=== PATIENT | male | born 1935 | race Caucasian/White ===

== ENCOUNTER 2023-07-24 11:09 | Inpatient (IN) | payer MEDICARE, SELFPAY ==
[2023-07-24] VITALS (29 sets, daily range): BP systolic 119–178; BP diastolic 63–91; PULSE 54–96; RESP 15–33; TEMP 36.2–36.8; O2SAT 91–100; BMI 30.8; BMI 30.4
--- NOTE | 2023-07-24 11:27 | DI.RAD.S_ITS ---
PROCEDURE: XR CHEST 1V INDICATIONS: chest pain TECHNIQUE: One view of the chest was acquired. COMPARISON: None. FINDINGS: Surgical changes and devices: None. Lungs and pleura: Question mild interstitial pulmonary edema. Minimal bibasilar atelectasis. No pleural effusions or pneumothorax. Mediastinum: Mediastinal contours appear normal. Heart size is normal. Bones and chest wall: No suspicious bony lesions. Overlying soft tissues appear unremarkable. IMPRESSION: Question subtle changes of congestive heart failure. Dictated by: Agustín Guzman M.D. on 07/24/2023 at 12:10 Approved by: Agustín Guzman M.D. on 07/24/2023 at 12:12
--- NOTE | 2023-07-24 11:27 | DI.CT.S_ITS ---
PROCEDURE: CT HEAD/BRAIN WO CON INDICATIONS: fall TECHNIQUE: Noncontrast 4.5 mm thick angled axial sections acquired from the foramen magnum to the vertex, with coronal and sagittal reformats. For radiation dose reduction, the following was used: automated exposure control, adjustment of mA and/or kV according to patient size. COMPARISON: None. FINDINGS: Image quality: Diagnostic. CSF spaces: Basal cisterns are patent. No extra-axial fluid collections. The ventricles are symmetric in size and shape. Brain: No intracranial bleeds or masses. There is cerebral volume loss for age, with resultant ventricular and sulcal prominence. There are periventricular and deep white matter chronic small vessel ischemic changes. There is intracranial internal carotid artery atherosclerosis. Skull and face: Calvarium and visualized facial bones appear intact, without suspicious lesions. Sinuses: Visualized sinuses and mastoids are clear. IMPRESSION: No acute intracranial pathology. Dictated by: Agustín Guzman M.D. on 07/24/2023 at 12:20 Approved by: Agustín Guzman M.D. on 07/24/2023 at 12:21
[2023-07-24 11:33] LABS: Add Manual Diff / Slide Review NO; Basophils Absolute Auto 100 /uL (0-100); Basophils Percent Auto 0.8 % (0-2); Eosinophils Absolute Auto 0 /uL (0-450); Hematocrit 46.2 % (41-53); Lymphocytes Absolute Auto 500 /uL (1100-4500); Lymphocytes Percent Auto 4.8 % (25-40); Mean Corpuscular HGB Conc 34.6 % (30-36); Mean Corpuscular Hemoglobin 32.9 PG (26-34); Monocytes Absolute Auto 1000 /uL (0-900); Monocytes Percent Auto 10.1 % (3-14); Neutrophils Absolute Auto 8300 /uL (1500-7000); Neutrophils Percent Auto 84.3 % (50-75); Platelet Count 177 X10^3/uL (150-400); Red Blood Cell Count 4.86 X10^6/uL (4.5-5.9); Red Cell Distribution Width 13.6 % (11.6-14.8); White Blood Cell Count 9.9 X10^3/uL (4.5-11.0)
[2023-07-24 11:39] LABS: Alanine Aminotransferase 13 IU/L (<50); Albumin Globulin Ratio 1.3 (1.0-2.8); Alkaline Phosphatase 56 U/L (38-126); Aspartate Aminotransferase 27 IU/L (17-59); Bilirubin Total 1.1 mg/dL (0.2-1.3); Blood Urea Nitrogen 17 mg/dL (9-20); Calcium 9.3 mg/dL (8.4-10.2); Carbon Dioxide 27 mmol/L (22-32); Chloride 102 mmol/L (98-107); Creatine Kinase 488 U/L (55-170); Estimated Glomerular Filt Rate > 60 mL/min (>60); Glucose 121 mg/dL (80-110); HEMOLYSIS < 15 (0-50); Lipase 108 U/L (23-300); Potassium 3.7 mmol/L (3.4-5.1); Sodium 136 mmol/L (137-145)
[2023-07-24 11:50] LABS: Troponin I 0.059 ng/mL (0.01-0.034)
--- NOTE | 2023-07-24 13:48 | ED.FALL ---
HPI - Fall General Chief Complaint: Fall Stated Complaint: Right Leg Weakness Time Seen by Provider: 07/24/23 11:27 Source: patient and EMS Mode of arrival: EMS History of Present Illness HPI Narrative: Patient is an 87-year-old male history of hypertension presenting today with right leg weakness. He is overall extremely poor historian. It appears that he has been falling more. Son at bedside states that he has been falling more over the last 6 months. However it is the patient has been falling more over the last 2 days. He has been crawling around on the floor Ms. Hands and knees are erythematous with some minor scabs. He was complaining of right leg weakness but seems to be able to move it. He is got some chronic ongoing back pain but states that he has not in any pain now. He does not have any sharp shooting pain down his leg. He reports that his right leg went ?.He has no chest pain fever or palpitations. No abdominal pain nausea vomiting. He says that he was leaning to the right at times as well. He was sitting on the bed when he leaned over to the right and bumped his head today. Son reports that he has not at his mental baseline. He reports that he is very sharp individual he talks to him very regularly on the phone. He is normally able to do all of his daily living activities without any assistance. Related Data Allergies Allergy/AdvReac Type Severity Reaction Status Date / Time No Known Drug Allergies Allergy Verified 07/24/23 11:32 Patient History Social History Smoking Status: Never smoker Smoking Status: Never smoker Substance Use Type: does not use Exam Initial Vital Signs Initial Vital Signs: Vital Signs Temperature 98.2 F 07/24/23 11:09 Pulse Rate 69 07/24/23 11:09 Respiratory Rate 16 07/24/23 11:09 Blood Pressure 144/70 H 07/24/23 11:09 Pulse Oximetry 97 07/24/23 11:09 Oxygen Delivery Method Room Air 07/24/23 11:09 GENERAL: Alert pleasant confused 87-year-old male and in no acute distress. HEENT: Head atraumatic,EOMI, pupils reactive, face symmetric, moist mucous membranes CARDIOVASCULAR: Regular rate and rhythm without murmurs, rubs or gallops. RESPIRATORY: Breath sounds equal bilaterally, no wheezes rales or rhonchi. ABDOMEN: Soft, nontender. Normoactive bowel sounds all 4 quadrants. No guarding or rebound. EXTREMITIES: Normal range of motion, no clubbing or edema. Neurovascularly intact NEUROLOGICAL: Alert and oriented x4.Normal gait and speech. Cranial nerves II through XII grossly intact. Good iwjojy-eu-vral, good ldjo-ks-psdn, strength equal bilaterally, no dysarthria or aphasia, sensation in tact to soft touch bilaterally, no visual changes, no facial droop SKIN: Warm, dry, no laceration, no petechiae, no rashes or lesions. Procedures Lumbar Puncture Patient Position: upright Skin Prep: Povidone-Iodine 1% Local Anesthetic: lidocaine 1% Amount of anesthesia used (mL): 3 Spinal Needle Gauge: 20G Interspace Used: L4-L5 Fluid Initially Obtained: clear Complications: none Scores NIH Stroke Scale Level of Conciousness: Alert, keenly responsive Ask month/age: Answers both questions correctly. Open/close eyes, close hand: Performs both tasks correctly Best gaze horizontal: Normal Visual sandoval: No visual loss Facial palsy: Normal symetrical movement Left arm drift: No drift for full 10 sec Right arm drift: No drift for full 10 sec Left leg drift: No drift for full 5 sec Right leg drift: No drift for full 5 sec Limb ataxia: Absent Sensory on face/arms/legs: Normal, no sensory loss Best language: No aphasia, normal Dysarthria: Normal Extinction or inattention: No abnormality Total NIH Stroke scale score: 0 Course Orders Ordered: ED Orders 07/24/23 11:18 BNP [NT-proBNP (BNP-Adult 18+)] Stat Complete Blood Count AUTO DIFF Stat Comprehensive Metabolic Panel Stat ETOH [Ethanol (ETOH)] Stat Lipase Stat TSH [Thyroid Stimulating Hormone] Stat Troponin & CK Cardiac Panel Stat 07/24/23 11:27 CT head/brain wo con Stat XR chest 1V Stat 07/24/23 11:28 EKG-12 Lead Stat 07/24/23 12:42 EKG-12 Lead Stat 07/24/23 13:20 Trop I [Troponin I] Stat 07/24/23 14:11 MR stroke Stat 07/24/23 18:12 ABG [Arterial Blood Gas] Stat 07/24/23 18:13 Ammonia (NH3) Stat 07/24/23 18:19 Covid-19 + FLU A/B + RSV - PCR Stat 07/24/23 18:20 Urine Drug Screen, Rapid Stat Urine Microscopic Stat 07/24/23 19:28 Cell Count w Diff CSF Stat Glucose CSF Stat HOLD TUBE CSF Stat Total Protein CSF Stat 07/24/23 19:31 CSF culture Stat Discontinued Medications Sodium Chloride (Normal Saline 0.9%) 1,000 mls @ 1,000 mls/hr IV BOLUS ONE Stop: 07/24/23 19:12 Lorazepam (Lorazepam 2 Mg/Ml Inj) 0.5 mg IV NOW ONE Stop: 07/24/23 14:31 Last Admin: 07/24/23 14:27 Dose: 0.5 mg Documented By: ANALY Lorazepam (Lorazepam 2 Mg/Ml Inj) 0.5 mg IV NOW ONE Stop: 07/24/23 19:00 Vital Signs Vital signs: Vital Signs - 8 hr 07/24/23 12:01 07/24/23 12:02 07/24/23 12:02 Pulse Rate 65 67 Respiratory Rate 16 Blood Pressure 151/79 H Pulse Oximetry 97 96 Oxygen Delivery Method 07/24/23 12:30 07/24/23 12:31 07/24/23 12:31 Pulse Rate 61 62 Respiratory Rate 18 15 Blood Pressure 143/63 H Pulse Oximetry 95 94 Oxygen Delivery Method Room Air 07/24/23 13:00 07/24/23 13:00 07/24/23 13:30 Pulse Rate 63 67 Respiratory Rate 16 20 Blood Pressure 135/91 H Pulse Oximetry 97 91 Oxygen Delivery Method 07/24/23 13:31 07/24/23 13:31 07/24/23 14:00 Pulse Rate 68 76 Respiratory Rate Blood Pressure 157/67 H Pulse Oximetry 93 94 Oxygen Delivery Method 07/24/23 15:25 07/24/23 15:29 07/24/23 15:29 Pulse Rate 79 82 Respiratory Rate 16 Blood Pressure 135/87 Pulse Oximetry Oxygen Delivery Method 07/24/23 15:30 07/24/23 16:00 07/24/23 16:30 Pulse Rate 77 71 74 Respiratory Rate 18 17 31 H Blood Pressure Pulse Oximetry 97 95 Oxygen Delivery Method Room Air 07/24/23 17:00 07/24/23 17:06 07/24/23 17:06 Pulse Rate 78 75 Respiratory Rate 29 H Blood Pressure 119/65 Pulse Oximetry 96 95 Oxygen Delivery Method 07/24/23 18:41 07/24/23 18:44 07/24/23 18:44 Pulse Rate 57 L 70 Respiratory Rate 25 H Blood Pressure 173/79 H Pulse Oximetry 100 94 Oxygen Delivery Method 07/24/23 19:00 07/24/23 19:01 07/24/23 19:01 Pulse Rate 67 65 Respiratory Rate 23 24 Blood Pressure 159/69 H Pulse Oximetry 93 92 Oxygen Delivery Method Room Air 07/24/23 19:30 07/24/23 19:31 07/24/23 19:31 Pulse Rate 71 74 Respiratory Rate 33 H 29 H Blood Pressure 158/74 H Pulse Oximetry 94 94 Oxygen Delivery Method Room Air Room Air MDM - Fall Lab Data 07/24/23 11:18 07/24/23 11:18 Labs: Lab Results 07/24/23 07/24/23 07/24/23 Range/Units 11:18 13:20 18:19 WBC 9.9 (4.5-11.0) X10^3/uL RBC 4.86 (4.5-5.9) X10^6/uL Hgb 16.0 (13.5-17.5) g/dL Hct 46.2 (41-53) % MCV 95.0 (80-100) fL MCH 32.9 (26-34) PG MCHC 34.6 (30-36) % RDW 13.6 (11.6-14.8) % Plt Count 177 (150-400) X10^3/uL Neut % (Auto) 84.3 H (50-75) % Lymph % (Auto) 4.8 L (25-40) % [place] % (Auto) 10.1 (3-14) % Eos % (Auto) 0.0 L (2-4) % Baso % (Auto) 0.8 (0-2) % Neut # (Auto) 8300 H (1878-8804) /uL Lymph # (Auto) 500 L (9937-6197) /uL [place] # (Auto) 1000 H (0-900) /uL Eos # (Auto) 0 (0-450) /uL Baso # (Auto) 100 (0-100) /uL Sodium 136 L (137-145) mmol/L Potassium 3.7 (3.4-5.1) mmol/L Chloride 102 (98-107) mmol/L Carbon Dioxide 27 (22-32) mmol/L BUN 17 (9-20) mg/dL Creatinine 1.13 (0.66-1.25) mg/dL Estimated GFR > 60 (>60) mL/min BUN/Creatinine Ratio 15.0 (6-22) Glucose 121 H (80-110) mg/dL Calcium 9.3 (8.4-10.2) mg/dL Total Bilirubin 1.1 (0.2-1.3) mg/dL AST 27 (17-59) IU/L ALT 13 (<50) IU/L Alkaline Phosphatase 56 (38-126) U/L Total Creatine Kinase 488 H (55-170) U/L Troponin I 0.059 H 0.055 H (0.01-0.034) ng/mL NT-Pro-B Natriuret Pep 7070 H (<450) pg/mL Total Protein 7.0 (6.3-8.2) g/dL Albumin 4.0 (3.5-5.0) g/dL Globulin 3.0 (1.7-4.1) g/dL Albumin/Globulin Ratio 1.3 (1.0-2.8) Lipase 108 (23-300) U/L TSH 0.878 (0.47-4.68) uIU/mL Urine RBC (0-5/HPF) Urine WBC (0-5/HPF) Ur Squamous Epith Cells (0-5/HPF) Urine Bacteria (None) Urine Mucus (Negative) Vol Urine Centrifuged U Opiates 300ng/mL cut (Negative) Ur Oxycodone Screen (Negative) Urine Methadone Screen (Negative) Ur Barbiturates Screen (Negative) U Tricyclic Antidepress (Negative) Ur Phencyclidine Scrn (Negative) Ur Amphetamines Screen (Negative) U Methamphetamines Scrn (Negative) Ur MDMA Scrn (Ecstasy) (Negative) U Benzodiazepines Scrn (Negative) Urine Cocaine Screen (Negative) U Marijuana (THC) Screen (Negative) Urine pH (Normal) Urine Specific [place] (Normal) Ethyl Alcohol < 10 ( - 10) mg/dL Ur Creatinine (Normal) SARS-CoV-2 (PCR) Positive H (Negative) Influenza A (RT-PCR) Flu a negative (NEGATIVE) Influenza B (RT-PCR) Flu b negative (NEGATIVE) RSV (PCR) Negative (Negative) 07/24/23 Range/Units 18:20 WBC (4.5-11.0) X10^3/uL RBC (4.5-5.9) X10^6/uL Hgb (13.5-17.5) g/dL Hct (41-53) % MCV (80-100) fL MCH (26-34) PG MCHC (30-36) % RDW (11.6-14.8) % Plt Count (150-400) X10^3/uL Neut % (Auto) (50-75) % Lymph % (Auto) (25-40) % [place] % (Auto) (3-14) % Eos % (Auto) (2-4) % Baso % (Auto) (0-2) % Neut # (Auto) (1198-2861) /uL Lymph # (Auto) (3268-9519) /uL [place] # (Auto) (0-900) /uL Eos # (Auto) (0-450) /uL Baso # (Auto) (0-100) /uL Sodium (137-145) mmol/L Potassium (3.4-5.1) mmol/L Chloride (98-107) mmol/L Carbon Dioxide (22-32) mmol/L BUN (9-20) mg/dL Creatinine (0.66-1.25) mg/dL Estimated GFR (>60) mL/min BUN/Creatinine Ratio (6-22) Glucose (80-110) mg/dL Calcium (8.4-10.2) mg/dL Total Bilirubin (0.2-1.3) mg/dL AST (17-59) IU/L ALT (<50) IU/L Alkaline Phosphatase (38-126) U/L Total Creatine Kinase (55-170) U/L Troponin I (0.01-0.034) ng/mL NT-Pro-B Natriuret Pep (<450) pg/mL Total Protein (6.3-8.2) g/dL Albumin (3.5-5.0) g/dL Globulin (1.7-4.1) g/dL Albumin/Globulin Ratio (1.0-2.8) Lipase (23-300) U/L TSH (0.47-4.68) uIU/mL Urine RBC 1-5/hpf (0-5/HPF) Urine WBC 1-5/hpf (0-5/HPF) Ur Squamous Epith Cells 1-5 /hpf (0-5/HPF) Urine Bacteria None seen (None) Urine Mucus 1+ H (Negative) Vol Urine Centrifuged 10ml (spun) U Opiates 300ng/mL cut Negative (Negative) Ur Oxycodone Screen Negative (Negative) Urine Methadone Screen Negative (Negative) Ur Barbiturates Screen Negative (Negative) U Tricyclic Antidepress Negative (Negative) Ur Phencyclidine Scrn Negative (Negative) Ur Amphetamines Screen Negative (Negative) U Methamphetamines Scrn Negative (Negative) Ur MDMA Scrn (Ecstasy) Negative (Negative) U Benzodiazepines Scrn Negative (Negative) Urine Cocaine Screen Negative (Negative) U Marijuana (THC) Screen Negative (Negative) Urine pH Normal (Normal) Urine Specific [place] Normal (Normal) Ethyl Alcohol ( - 10) mg/dL Ur Creatinine Normal (Normal) SARS-CoV-2 (PCR) (Negative) Influenza A (RT-PCR) (NEGATIVE) Influenza B (RT-PCR) (NEGATIVE) RSV (PCR) (Negative) Urine Dip Bedside Urine Glucose Negative Bedside Urine Bilirubin - Negative Bedside Urine Ketone +/- 5 Urine Specific [place] 1.030 Bedside Urine Occult Blood ++ Bedside Urine pH 6.0 Bedside Urine Protein +/- 15 Bedside Urine Urobilinogen - Negative Bedside Urine Nitrite - Negative Bedside Urine Leukocytes - Negative Esterase Imaging Data CT scan - head: Radiologist's Impression: PROCEDURE: CT HEAD/BRAIN WO CON INDICATIONS: fall TECHNIQUE: Noncontrast 4.5 mm thick angled axial sections acquired from the foramen magnum to the vertex, with coronal and sagittal reformats. For radiation dose reduction, the following was used: automated exposure control, adjustment of mA and/or kV according to patient size. COMPARISON: None. FINDINGS: Image quality: Diagnostic. CSF spaces: Basal cisterns are patent. No extra-axial fluid collections. The ventricles are symmetric in size and shape. Brain: No intracranial bleeds or masses. There is cerebral volume loss for age, with resultant ventricular and sulcal prominence. There are periventricular and deep white matter chronic small vessel ischemic changes. There is intracranial internal carotid artery atherosclerosis. Skull and face: Calvarium and visualized facial bones appear intact, without suspicious lesions. Sinuses: Visualized sinuses and mastoids are clear. IMPRESSION: No acute intracranial pathology. Dictated by: Agustín Guzman M.D. on 07/24/2023 at 12:20 MR Brain: Radiologist's Impression: PROCEDURE: MR STROKE Pre- and post-contrast brain MRI, non-contrast brain MR angiogram, pre- and postcontrast neck MR angiogram INDICATIONS: right leg weakness TECHNIQUE: Brain: Noncontrast axial T1 spin echo, axial T2 fast spin echo, sagittal and axial FLAIR, coronal T2 fast spin echo, axial gradient echo, axial diffusion and ADC through the brain. After the administration of contrast, axial 3D VIBE of the cranial vasculature and brain. Brain MRA: Non-contrast 3-D time of flight MR angiogram, with multiple attxwbn-oydbymhri-aoffspxvvu (MIP) reformats performed. Neck MRA: Axial and sagittal TruFISP through the neck. Coronal dynamic MR angiogram during administration of contrast in the arterial and venous phases, with 3-dimenstional ueulkqy-odhjkzhrs-hvftrgoxar (MIP) reformats constructed from subtraction images. COMPARISON: [facility], CT, CT HEAD/BRAIN WO CON, 07/24/2023, 12:01. [facility], CR, XR CHEST 1V, 07/24/2023, 11:33. FINDINGS: Image quality: This examination is highly limited by involuntary motion artifact. BRAIN: CSF spaces: Ventricles are normal in size and shape. Basal cisterns are patent. No extra-axial fluid collections. Brain: No intracranial bleeds or mass effects. Rose-white matter interface is normal. Diffusion weighted images show no acute infarct. Brainstem appears normal. Normal intravascular flow voids are present. No abnormal intracranial enhancement. Note is made of age-appropriate brain parenchymal volume loss and chronic small vessel ischemic changes. Skull and face: Calvarial marrow signal is normal. Orbits appear normal. Sinuses: Sinuses and mastoids are clear. BRAIN MR ANGIOGRAM: Anterior circulation: Intracranial internal carotid arteries are normal in size and enhancement. The flow within the paired anterior cerebral arteries is normal and symmetric. The flow within the middle cerebral arteries is normal and symmetric. The anterior communicating artery is seen. No stenoses, occlusions, or aneurysms. Posterior circulation: The visualized portions of the vertebral arteries demonstrate normal caliber, and join to form a normal appearing basilar artery. The flow within the posterior cerebral arteries is normal and symmetric. No stenoses, occlusions, or aneurysms. NECK MR ANGIOGRAM: Carotids: Incidental note is made of a common origin of the right brachiocephalic artery and the left common carotid artery (bovine type arch). This is considered to be a developmental variant of no clinical consequence. The origins of the common carotid arteries appear patent. The calibers and courses of both common carotid arteries are normal. The bifurcation regions appear normal bilaterally. The internal carotid arteries demonstrate normal course and caliber. Posterior circulation: The origins of the vertebral arteries appear patent. More superior portions of both vertebral arteries demonstrate normal course and caliber, and join to form a normal appearing basilar artery. Miscellaneous: Subclavian arteries appear patent. Pre-contrast images through the neck show no soft tissue abnormalities. IMPRESSION: Study limited by motion artifact. BRAIN MRI: No findings of acute or subacute infarction can be seen. Note is made of age-appropriate brain parenchymal volume loss and chronic small vessel ischemic changes. No masses or abnormal enhancement can be seen. BRAIN MR ANGIOGRAM: No significant intracranial arterial abnormality is seen. NECK MR ANGIOGRAM: Within the arteries of the neck, no hemodynamically significant stenosis can be seen. Additional findings: Bovine type aortic branching pattern Dictated by: Servando Anderson M.D. on 07/24/2023 at 14:37 Chest x-ray: Radiologist's Impression: PROCEDURE: XR CHEST 1V INDICATIONS: chest pain TECHNIQUE: One view of the chest was acquired. COMPARISON: None. FINDINGS: Surgical changes and devices: None. Lungs and pleura: Question mild interstitial pulmonary edema. Minimal bibasilar atelectasis. No pleural effusions or pneumothorax. Mediastinum: Mediastinal contours appear normal. Heart size is normal. Bones and chest wall: No suspicious bony lesions. Overlying soft tissues appear unremarkable. IMPRESSION: Question subtle changes of congestive heart failure. Dictated by: Agustín Guzman M.D. on 07/24/2023 at 12:10 ECG Data Interpretation: EKG 1. Sinus rhythm with PACs ST depression noted in lead to lead V4 V5 V6 no obvious ST elevations, no priors to compare EKG number 2 sinus bradycardia with PAC your [address] depression in lead 2 MDM Narrative Medical decision making narrative: Patient is a 87-year-old male who presents today with increasing falls and confusion. Poor historian. On exam he has no focal deficits, NIH stroke scale 0. Blood work has been reviewed he has 2 troponins indeterminate 0.0591 and 0.055, CPK 48, creatinine 1.13, no leukocytosis no anemia, Imaging reviewed chest x-ray questionable changes of heart failure, head CT and MRI of brain do not show any acute abnormalities EKG reviewed Patient continues to be very confused in the ED. Attempted to ambulate he stood up incidentally needed assistance it appeared that maybe he was dizzy or unstable. Repeat attempt he was given a walker he was able to do okay. However son reports that this is not his baseline mental status and is concerned. No evidence of stroke MRI infection. He does have some indeterminate troponins with nonspecific ST depressions on his EKG but he has having no chest pain. Patient is found to be COVID positive without any significant hypoxia symptoms. With elevated troponin elevated BNP of 7000 questionable heart failure versus acute coronary syndrome. He has not having any sort of chest pain. He is not hypoxic or having respiratory distress I am not going to give Lasix at this time does not clinically appear fluid overloaded. 1814 Dr. Gonzalez updated on patient's symptoms test results request ABG urinalysis prior to admission and LP LP Clear, sent for testing 1944 Dr. Davis accepts Discharge Plan Departure Patient Disposition: Admitted As Inpatient Clinical Impression: Acute metabolic encephalopathy, Elevated troponin, COVID-19
[2023-07-24 13:49] LABS: Troponin I 0.055 ng/mL (0.01-0.034)
--- NOTE | 2023-07-24 14:11 | DI.MRI.S_ITS ---
PROCEDURE: MR STROKE Pre- and post-contrast brain MRI, non-contrast brain MR angiogram, pre- and postcontrast neck MR angiogram INDICATIONS: right leg weakness TECHNIQUE: Brain: Noncontrast axial T1 spin echo, axial T2 fast spin echo, sagittal and axial FLAIR, coronal T2 fast spin echo, axial gradient echo, axial diffusion and ADC through the brain. After the administration of contrast, axial 3D VIBE of the cranial vasculature and brain. Brain MRA: Non-contrast 3-D time of flight MR angiogram, with multiple bfeuqod-zmmvwgmxd-dajsdtqwib (MIP) reformats performed. Neck MRA: Axial and sagittal TruFISP through the neck. Coronal dynamic MR angiogram during administration of contrast in the arterial and venous phases, with 3-dimenstional gtozckb-wtdxrlmvf-skxzlwerqi (MIP) reformats constructed from subtraction images. COMPARISON: [facility], CT, CT HEAD/BRAIN WO CON, 07/24/2023, 12:01. [facility], CR, XR CHEST 1V, 07/24/2023, 11:33. FINDINGS: Image quality: This examination is highly limited by involuntary motion artifact. BRAIN: CSF spaces: Ventricles are normal in size and shape. Basal cisterns are patent. No extra-axial fluid collections. Brain: No intracranial bleeds or mass effects. Rose-white matter interface is normal. Diffusion weighted images show no acute infarct. Brainstem appears normal. Normal intravascular flow voids are present. No abnormal intracranial enhancement. Note is made of age-appropriate brain parenchymal volume loss and chronic small vessel ischemic changes. Skull and face: Calvarial marrow signal is normal. Orbits appear normal. Sinuses: Sinuses and mastoids are clear. BRAIN MR ANGIOGRAM: Anterior circulation: Intracranial internal carotid arteries are normal in size and enhancement. The flow within the paired anterior cerebral arteries is normal and symmetric. The flow within the middle cerebral arteries is normal and symmetric. The anterior communicating artery is seen. No stenoses, occlusions, or aneurysms. Posterior circulation: The visualized portions of the vertebral arteries demonstrate normal caliber, and join to form a normal appearing basilar artery. The flow within the posterior cerebral arteries is normal and symmetric. No stenoses, occlusions, or aneurysms. NECK MR ANGIOGRAM: Carotids: Incidental note is made of a common origin of the right brachiocephalic artery and the left common carotid artery (bovine type arch). This is considered to be a developmental variant of no clinical consequence. The origins of the common carotid arteries appear patent. The calibers and courses of both common carotid arteries are normal. The bifurcation regions appear normal bilaterally. The internal carotid arteries demonstrate normal course and caliber. Posterior circulation: The origins of the vertebral arteries appear patent. More superior portions of both vertebral arteries demonstrate normal course and caliber, and join to form a normal appearing basilar artery. Miscellaneous: Subclavian arteries appear patent. Pre-contrast images through the neck show no soft tissue abnormalities. IMPRESSION: Study limited by motion artifact. BRAIN MRI: No findings of acute or subacute infarction can be seen. Note is made of age-appropriate brain parenchymal volume loss and chronic small vessel ischemic changes. No masses or abnormal enhancement can be seen. BRAIN MR ANGIOGRAM: No significant intracranial arterial abnormality is seen. NECK MR ANGIOGRAM: Within the arteries of the neck, no hemodynamically significant stenosis can be seen. Additional findings: Bovine type aortic branching pattern Dictated by: Servando Anderson M.D. on 07/24/2023 at 14:37 Approved by: Servando Anderson M.D. on 07/24/2023 at 14:39
[2023-07-24] MEDS: LORazepam 2 MG/ML INJ 0.5 MG IV (14:27)
[2023-07-24 18:15] LABS: Ethanol (ETOH) < 10 mg/dL
[2023-07-24 18:27] LABS: Urine Volume 10mL (spun)
[2023-07-24 18:46] LABS: Thyroid Stimulating Hormone 0.878 uIU/mL (0.47-4.68)
[2023-07-24 19:00] LABS: UR Morphine/Opiate cutoff 300 Negative (Negative); Ur Creatinine Normal (Normal); Ur Specific Gravity Normal (Normal); Urine Amphetamines Negative (Negative); Urine Barbiturates Negative (Negative); Urine Benzodiazepines Negative (Negative); Urine Cocaine Negative (Negative); Urine MDMA Negative (Negative); Urine Methadone Negative (Negative); Urine Methamphetamines Negative (Negative); Urine Oxycodone Negative (Negative); Urine Phencyclidine Negative (Negative); Urine Tetrahydrocannabinol Negative (Negative); Urine Tricyclic Antidepressant Negative (Negative); Urine pH Normal (Normal)
--- NOTE | 2023-07-24 19:00 | PC.NURSE ---
PtAAOx4, generalized weakness noted. Pt denies any complaints but does say when staff helps him position his back does hurt but this is his baseline. Call light within reach, son at bedside.
[2023-07-24 19:02] LABS: NT-proBNP (BNP-Adult 18+) 7070 pg/mL (<450)
[2023-07-24 19:08] LABS: Influenza A - CEPHEID Flu A NEGATIVE (NEGATIVE); Influenza B - CEPHEID Flu B NEGATIVE (NEGATIVE); Respiratory Syncytial Virus Negative (Negative)
[2023-07-24 19:16] LABS: COVID-19 CEPHEID 4-PLEX PCR POSITIVE (Negative)
[2023-07-24 19:19] LABS: Bacteria Urine None Seen; Mucus Urine 1+ (Negative); RBC Urine 1-5/HPF (0-5/HPF); Squamous Epithelial Cell Urine 1-5 /HPF (0-5/HPF); WBC Urine 1-5/HPF (0-5/HPF)
[2023-07-24 19:47] LABS: Allen Test for ABG Passed? Yes, Passed; Blood Gas Collection Site Right Radial; Fractionated Inspired Oxygen 21; HCO3 ABG 19 mmol/L (23-27); Oxygen Saturation ABG 96 % (95-100); PCO2 ABG 28.4 mmHg (35-45); PO2 ABG 75 mmHg (80-100); TCO2 ABG 20 mmol/L (23-27); pH ABG 7.44 (7.35-7.45)
[2023-07-24 19:54] LABS: Glucose CSF 71 mg/dL (40-70); Total Protein CSF 67 mg/dL (12-60)
[2023-07-24 20:18] LABS: CSF Tube Number 3; CSF Tube Volume 0.75 mL
[2023-07-24 20:19] LABS: Appearance CSF Clear (Clear); Color CSF Colorless (Colorless); Mononuclear WBC CSF 97 %; Polynuclear WBC CSF 3 %; Red Blood Cell CSF 109 RBC /uL; White Blood Cell CSF 7 MONO/uL (0-5)
--- NOTE | 2023-07-24 20:19 | PC.NURSE ---
Pt Son, Jhony Birch, went home. Requested that we call him when the pt gets a room upstairs. Verbalized understanding plan. Phone number is [phone].
[2023-07-24 20:57] LABS: HOLD TUBE CSF 4
--- NOTE | 2023-07-24 22:43 | PM.HP.1 ---
History of Present Illness History of Present Illness Date Patient Seen: 07/24/23 Time Patient Seen: 22:43 Chief complaint: Right Leg Weakness Narrative: The pt is a 87 yo from [facility] who was brought to the ER tonight due to confusion. During my interview he was being very uncooperative with the nursing staff. He was refusing to take his clothes off, and had a bowel movment in his pants and on the floor. Jesus refused to answer any of my questions and would not let the nurses look at his IV site or change his IV site. He is very beligerent and agitated. In the ER, the staff was able to talk to his son who stated that the pt is normally able to talk and converse without difficulty. [facility] Social History Smoking Status: Never smoker Meds Home Medications and Allergies Allergies Allergy/AdvReac Type Severity Reaction Status Date / Time No Known Drug Allergies Allergy Verified 07/24/23 11:32 Exam Vital Signs (past 8 hours): - 07/24/23 15:25 07/24/23 15:29 07/24/23 15:29 Pulse Rate 79 82 Respiratory Rate 16 Blood Pressure 135/87 Pulse Oximetry Oxygen Delivery Method 07/24/23 15:30 07/24/23 16:00 07/24/23 16:30 Pulse Rate 77 71 74 Respiratory Rate 18 17 31 H Blood Pressure Pulse Oximetry 97 95 Oxygen Delivery Method Room Air 07/24/23 17:00 07/24/23 17:06 07/24/23 17:06 Pulse Rate 78 75 Respiratory Rate 29 H Blood Pressure 119/65 Pulse Oximetry 96 95 Oxygen Delivery Method 07/24/23 18:41 07/24/23 18:44 07/24/23 18:44 Pulse Rate 57 L 70 Respiratory Rate 25 H Blood Pressure 173/79 H Pulse Oximetry 100 94 Oxygen Delivery Method 07/24/23 19:00 07/24/23 19:01 07/24/23 19:01 Pulse Rate 67 65 Respiratory Rate 23 24 Blood Pressure 159/69 H Pulse Oximetry 93 92 Oxygen Delivery Method Room Air 07/24/23 19:30 07/24/23 19:31 07/24/23 19:31 Pulse Rate 71 74 Respiratory Rate 33 H 29 H Blood Pressure 158/74 H Pulse Oximetry 94 94 Oxygen Delivery Method Room Air Room Air 07/24/23 20:00 07/24/23 20:01 07/24/23 20:01 Pulse Rate 90 90 Respiratory Rate 20 25 H Blood Pressure 158/68 H Pulse Oximetry 93 Oxygen Delivery Method Room Air 07/24/23 20:30 Pulse Rate 96 H Respiratory Rate 27 H Blood Pressure Pulse Oximetry Oxygen Delivery Method Oxygen Delivery Method Room Air Const General: comfortable, combative and disheveled Resp Auscultation: clear to auscultation bilaterally Cardio Rate: tachycardic Rhythm: regular rhythm Neuro General: patient alert, patient awake and patient confused Psych Appearance: disheveled Mood: angry Objective Labs 07/24/23 11:18 07/24/23 11:18 Labs: Laboratory Results - last 24 hr 07/24/23 07/24/23 07/24/23 11:18 13:20 18:12 WBC 9.9 RBC 4.86 Hgb 16.0 Hct 46.2 MCV 95.0 MCH 32.9 MCHC 34.6 RDW 13.6 Plt Count 177 Neut % (Auto) 84.3 H Lymph % (Auto) 4.8 L [place] % (Auto) 10.1 Eos % (Auto) 0.0 L Baso % (Auto) 0.8 Neut # (Auto) 8300 H Lymph # (Auto) 500 L [place] # (Auto) 1000 H Eos # (Auto) 0 Baso # (Auto) 100 ABG Sample Site Right radial ABG pH 7.44 ABG pCO2 28.4 L ABG pO2 75 L ABG HCO3 19 L ABG Total CO2 20 L ABG O2 Saturation 96 ABG Base Excess -5.0 L FiO2 21 Sodium 136 L Potassium 3.7 Chloride 102 Carbon Dioxide 27 BUN 17 Creatinine 1.13 Estimated GFR > 60 BUN/Creatinine Ratio 15.0 Glucose 121 H Calcium 9.3 Total Bilirubin 1.1 AST 27 ALT 13 Alkaline Phosphatase 56 Total Creatine Kinase 488 H Troponin I 0.059 H 0.055 H NT-Pro-B Natriuret Pep 7070 H Total Protein 7.0 Albumin 4.0 Globulin 3.0 Albumin/Globulin Ratio 1.3 Lipase 108 TSH 0.878 Urine RBC Urine WBC Ur Squamous Epith Cells Urine Bacteria Urine Mucus Vol Urine Centrifuged CSF Tube Number CSF Volume CSF Appearance CSF Color CSF WBC CSF RBC CSF Mononuclear WBCs CSF Polynuclear WBCs CSF Glucose CSF Total Protein U Opiates 300ng/mL cut Ur Oxycodone Screen Urine Methadone Screen Ur Barbiturates Screen U Tricyclic Antidepress Ur Phencyclidine Scrn Ur Amphetamines Screen U Methamphetamines Scrn Ur MDMA Scrn (Ecstasy) U Benzodiazepines Scrn Urine Cocaine Screen U Marijuana (THC) Screen Urine pH Urine Specific [place] Ethyl Alcohol < 10 Ur Creatinine SARS-CoV-2 (PCR) Influenza A (RT-PCR) Influenza B (RT-PCR) RSV (PCR) 07/24/23 07/24/23 07/24/23 18:19 18:20 19:22 WBC RBC Hgb Hct MCV MCH MCHC RDW Plt Count Neut % (Auto) Lymph % (Auto) [place] % (Auto) Eos % (Auto) Baso % (Auto) Neut # (Auto) Lymph # (Auto) [place] # (Auto) Eos # (Auto) Baso # (Auto) ABG Sample Site ABG pH ABG pCO2 ABG pO2 ABG HCO3 ABG Total CO2 ABG O2 Saturation ABG Base Excess FiO2 Sodium Potassium Chloride Carbon Dioxide BUN Creatinine Estimated GFR BUN/Creatinine Ratio Glucose Calcium Total Bilirubin AST ALT Alkaline Phosphatase Total Creatine Kinase Troponin I NT-Pro-B Natriuret Pep Total Protein Albumin Globulin Albumin/Globulin Ratio Lipase TSH Urine RBC 1-5/hpf Urine WBC 1-5/hpf Ur Squamous Epith Cells 1-5 /hpf Urine Bacteria None seen Urine Mucus 1+ H Vol Urine Centrifuged 10ml (spun) CSF Tube Number 3 CSF Volume 0.75 ml CSF Appearance Clear CSF Color Colorless CSF WBC 7 H CSF RBC 109 CSF Mononuclear WBCs 97 CSF Polynuclear WBCs 3 CSF Glucose 71 H CSF Total Protein 67 H U Opiates 300ng/mL cut Negative Ur Oxycodone Screen Negative Urine Methadone Screen Negative Ur Barbiturates Screen Negative U Tricyclic Antidepress Negative Ur Phencyclidine Scrn Negative Ur Amphetamines Screen Negative U Methamphetamines Scrn Negative Ur MDMA Scrn (Ecstasy) Negative U Benzodiazepines Scrn Negative Urine Cocaine Screen Negative U Marijuana (THC) Screen Negative Urine pH Normal Urine Specific [place] Normal Ethyl Alcohol Ur Creatinine Normal SARS-CoV-2 (PCR) Positive H Influenza A (RT-PCR) Flu a negative Influenza B (RT-PCR) Flu b negative RSV (PCR) Negative Assessment & Plan Assessment & Plan narrative: 1. COVID confusion with acute metabolic encephalopathy- will admit the pt for monitoring, Haldol 5 mg ordered q6prn, May have to consider restraints, I have asked the nurse to contact any family members regarding maybe staying with the pt. I did discuss the pt's condtion and labs with the ER provider. I reviewed the labs, all of which are negative. COVID was positive, MRI of the head without acute abnormalities, Uncertain if he has CHF but CXR reviewed by me did show some vascular congestion with a BNP of 7,000. I have ordered lasix 40 mg BID,
[2023-07-25] VITALS (10 sets, daily range): BP systolic 71–177; BP diastolic 41–97; PULSE 54–89; RESP 16–20; TEMP 36.1–36.3; O2SAT 94–98
--- NOTE | 2023-07-25 00:59 | PC.NURSE ---
^ back of head ^ R elbow ^ L elbow ^ R knee ^ L knee
--- NOTE | 2023-07-25 01:01 | PC.NURSE ---
Addendum entered by Veronica Romero R.N. 07/25/23 06:34: Woke up patient at 0600 for vitals check & brief change, patient was calm and cooperative with care. Patient is hypertensive (177/97), MD Peterson notified, OK'd late dose of IV Lasix. Otherwise VSS. Addendum entered by Veronica Romero R.N. 07/25/23 01:39: Patient awoke from chair and attempted to walk out of room, patient is extremely unsteady. Required 5 person assist to clean & reposition patient in the bed. Patient is agitated and refusing care, although appears tired after bed bath being performed. Currently resting in bed. Will continue to monitor. Original Note: fixer boarding room: Assumed 1:1 assignment @ 0000. Patient resting in chair, appears fatigued, breathing is unlabored. Patient is arousable to voice, refusing care currently. Will continue to monitor.
[2023-07-25] MEDS: HALOPERIDOL 5 MG/ML VIAL IM (02:15)
[2023-07-25 02:23] LABS: Add Manual Diff / Slide Review NO; Basophils Absolute Auto 0 /uL (0-100); Basophils Percent Auto 0.5 % (0-2); Eosinophils Absolute Auto 0 /uL (0-450); Hematocrit 42.3 % (41-53); Hemoglobin 14.8 g/dL (13.5-17.5); Lymphocytes Absolute Auto 900 /uL (1100-4500); Lymphocytes Percent Auto 9.1 % (25-40); Mean Corpuscular HGB Conc 34.9 % (30-36); Mean Corpuscular Hemoglobin 32.9 PG (26-34); Mean Corpuscular Volume 94.3 fL (80-100); Monocytes Absolute Auto 1300 /uL (0-900); Monocytes Percent Auto 13.5 % (3-14); Neutrophils Absolute Auto 7400 /uL (1500-7000); Neutrophils Percent Auto 76.9 % (50-75); Platelet Count 161 X10^3/uL (150-400); Red Blood Cell Count 4.49 X10^6/uL (4.5-5.9); Red Cell Distribution Width 13.3 % (11.6-14.8); White Blood Cell Count 9.6 X10^3/uL (4.5-11.0)
[2023-07-25 02:34] LABS: Ammonia (NH3) < 9 umol/L (9-30)
[2023-07-25 02:47] LABS: Troponin I 0.053 ng/mL (0.01-0.034)
--- NOTE | 2023-07-25 02:57 | PC.ADMIT ---
[address] Admission Note: Patient admitted to AC unit from ED at 21:00 transferred via wheelchair. Alert and confused, assisted to bed. Resistive to SBA transfer. Attempting to self transfer while unsteady and difficult to redirect. Patient attempted to leave, staff able to redirect back to room. Patient incontinent of BM and refusing care. Dr. Peterson notified of patients condition, saw patient and ordered IM haldol. Pt requires 1:1 for safety. The patient,Jesus Birch,87 y/o, was given written information regarding hospital policies, unit procedures and contact persons. Patient's smoking status: Never smoker. Vital Signs - 8 hr 07/24/23 19:00 07/24/23 19:01 07/24/23 19:01 Temperature Pulse Rate 67 65 Respiratory Rate 23 24 Blood Pressure 159/69 H Pulse Oximetry 93 92 Oxygen Delivery Method Room Air 07/24/23 19:30 07/24/23 19:31 07/24/23 19:31 Temperature Pulse Rate 71 74 Respiratory Rate 33 H 29 H Blood Pressure 158/74 H Pulse Oximetry 94 94 Oxygen Delivery Method Room Air Room Air 07/24/23 20:00 07/24/23 20:01 07/24/23 20:01 Temperature Pulse Rate 90 90 Respiratory Rate 20 25 H Blood Pressure 158/68 H Pulse Oximetry 93 Oxygen Delivery Method Room Air 07/24/23 20:10 07/24/23 20:30 07/24/23 21:10 Temperature 97.2 F L Pulse Rate 96 H 66 Respiratory Rate 27 H 16 Blood Pressure 178/86 H Pulse Oximetry 95 Oxygen Delivery Method Room Air 07/24/23 21:10 07/25/23 02:16 Temperature Pulse Rate Respiratory Rate Blood Pressure Pulse Oximetry 95 Oxygen Delivery Method Room Air Room Air
[2023-07-25 03:42] LABS: BUN Creatinine Ratio 19.5 (6-22); Blood Urea Nitrogen 22 mg/dL (9-20); Calcium 9.1 mg/dL (8.4-10.2); Carbon Dioxide 21 mmol/L (22-32); Chloride 105 mmol/L (98-107); Estimated Glomerular Filt Rate > 60 mL/min (>60); Glucose 110 mg/dL (80-110); HEMOLYSIS 19 (0-50); Potassium 3.8 mmol/L (3.4-5.1); Sodium 136 mmol/L (137-145)
[2023-07-25 03:51] LABS: NT-proBNP (BNP-Adult 18+) 5320 pg/mL (<450)
[2023-07-25] MEDS: FUROSEMIDE 40 MG/4 ML VIAL IV (06:28)
[2023-07-25 08:58] LABS: Troponin I 0.061 ng/mL (0.01-0.034)
--- NOTE | 2023-07-25 10:45 | OT.IP.EVAL ---
Current Diagnoses COVID-19 (07/24/23) Occupational Therapy Inpatient Evaluation/Re-Eval M1 PT/OT-IP Prior Functional Status Start: 07/25/23 12:24 Freq: NEEDED Status: Active Protocol: Document 07/25/23 12:30 [facility] (Rec: 07/25/23 12:32 [facility] [id number]) Medical Review Prior Functional Status Communication Independent Mobility and Gait Pt states independent but has been considering getting a 4ww as has been feeling shaky in the last 2 weeks on his feet. Activities of Daily Living and IADL's Completely independent with all ADL, IADL, and has meal at his facility. Social History Living Arrangements Assisted Facility Number of Floors (Floors) One Floor Home Environment Standard Height Toilet,Walk in Shower,Tub/Shower Home Equipment Hand Held Shower,Grab Bars Near Toilet,Grab Bars In Shower Employment Status Retired M2 OT-IP Current Condition Start: 07/25/23 11:32 Freq: Status: Active Protocol: Document 07/25/23 11:32 [facility] (Rec: 07/25/23 11:55 [facility] [id number]) Occupational Therapy Current Condition Current Condition Evaluation Date 07/25/23 Treatment Diagnosis COVID+, confusion and acute metabolic encephalopathy Diagnosis Onset Date 07/24/23 M3 OT- IP Subjective and Pain Start: 07/25/23 11:32 Freq: Status: Active Protocol: Document 07/25/23 11:32 [facility] (Rec: 07/25/23 11:55 [facility] [id number]) OT- Subjective Occupational Therapy Visit Type Type Initial Evaluation Visit Start Time 10:45 Visit Stop Time 11:34 Occupational Therapy Visit Comments Patient Comments Pt already sitting up in the chair and agreed to do OT eval . Patient/Caregiver Goals To go home. OT Pain Assessment Pain When Pain Assessed At Rest Pain Present Pain Present Denied Pain M4 OT- IP ADL's Start: 07/25/23 11:32 Freq: Status: Active Protocol: Document 07/25/23 11:32 [facility] (Rec: 07/25/23 11:55 [facility] [id number]) OT [id number]-[id number] Comments OT Self-Feeding Comments Not at meal time, no issues anticipated. OT ADL-Grooming Comments OT Grooming Comments Not performed. OT ADL-Oral Care Comments Oral Care Comments Pt states did prior. OT ADL-Dressing General Eval Lower Body Dressing Ability Standby Assistance Comments OT Dressing Comments Pt is well aware to dress while seated as states in the past 2 weeks feeling shaky and woozy on his feet. OT ADL-Toileting Comments OT Toileting Comments Not performed. Per nursing aid has been up to the bathroom on his own. OT ADL-Bathing Comments OT Bathing Comments NOt performed. M5 OT- IP IADL's Start: 07/25/23 11:32 Freq: Status: Active Protocol: Document 07/25/23 11:32 [facility] (Rec: 07/25/23 11:55 [facility] [id number]) OT-Instrumental Activities of Daily Living Deficits IADL Deficits Identified Deficits Home Safety Awareness Awareness of Need for Assistance at Home Good Awareness Ability to Problem Solve Emergency Able to Problem Solve Situations Medication Management Medication Management No Deficits Identified Money Management Money Management No Deficits Identified Meal Preparation Meal Preparation Comments [facility] provides meals. Driving Driving Concerns Identified Regarding Safety M6 OT- IP Functional Cognition Start: 07/25/23 11:32 Freq: Status: Active Protocol: Document 07/25/23 11:32 [facility] (Rec: 07/25/23 11:55 [facility] [id number]) Cognitive Factors Limiting Selfcare Function Cognitive Ability Level of Alertness Alert Patient Orientation Name,Age,Birthday,Month,Date, Year,Day of Week,Place, Situation Attention Span Ability Capable of Focused Attention, Capable of Sustained Attention Ability to Follow Commands Able to Follow Multi-Step Commands Memory Description Short Term Impaired Executive Function Ability Unable to Remember Details Cognitive Tests SLUMS Pt scored 27/30 which implies Normal for his education. Pt admit to having more difficulty with his short term memory now. Able to answer 3/ 4 questions right after paragraph read and able to recall 4/5 objects after time passed. Cognitive Comments Cognitive Assessment Comments Pt scored 138 seconds on TRail Making Part B which implies severe deficits from visual attention, speed of processing , mental flexibility, executive functioning, and task switching. Pt well aware not to drive at this time. Pt had difficulty to recall instructions half way through the assessment. Pt's time at roughly 40th percentile for his age. OT- Vision and Hearing OT- Vision Assessment Visual Acuity Glasses For Reading Visual Attentiveness WFL Occular Pursuits Impaired Horizontal Visual Convergence WFL Visual Marroquin WFL Vision Assessment Comments Pt on an occasion right eye lagging during ocular pursuits horizontally. Pt states looking to get his ears checked soon as his kids have been nagging him about it. M7 OT- IP Mobility and Balance Start: 07/25/23 11:32 Freq: Status: Active Protocol: Document 07/25/23 11:32 [facility] (Rec: 07/25/23 11:55 [facility] [id number]) OT-Transfer Assessment Sit to and From Stand Sit to and from Stand Standby Assistance Comments Mobility Comments Pt already sitting down and BP 130/64 hr 70, and after standing dropped to 71/47 hr 86 and pt states feeling woozy and shaky in his legs. Pt sat back down and states feeling better. Nursing notified. OT- Balance Assessment Sitting Balance and Reactions Static Sitting Balance Ability Normal Dynamic Sitting Balance Ability Normal Standing Balance and Reactions Static Standing Balance Ability Good M8 OT- IP Objective Assessments Start: 07/25/23 11:32 Freq: Status: Active Protocol: Document 07/25/23 11:32 [facility] (Rec: 07/25/23 11:55 [facility] [id number]) OT Gross Range of Motion Upper Extremity Range of Motion ROM Impairments Grossly WFL 0-110 shoulder flexion. 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 LUE 4+/5 throughout. OT- Coordination Assessment Upper Extremity Finger to Nose Test Right UE Impaired Finger Tapping Test Right UE Impaired Comments Coordination Comments Slight delay with right hand. OT Sensation Assessment Comments Summary Comments Slightly decreased from proprioception and kinesthesia for right hand. M9 OT- IP Assessment and Plan Start: 07/25/23 11:32 Freq: Status: Active Protocol: Document 07/25/23 11:32 [facility] (Rec: 07/25/23 11:55 [facility] [id number]) OT Summary Assessment and Plan Potential Rehabilitation Potential Excellent Analytic Complexity at Evaluation Moderate Summary OT Impairments Strength,Balance,Functional Cognition,Functional Mobility, Dressing,Toileting,Bathing, Toilet Transfers,Shower Transfers,Activity Tolerance Progress Towards Goals Slow Progress due to Medical Issues Assessment Summary Pt MOD complexity and here due to COVID +. Not able to mobilize pt much due to pt's BP dropped from 130/64 to 71/ 47 and feeling symptomatic of feeling woozy and shaky on his feet. Pt states has been considering getting a 4ww for home use due to he has been shaky on his feet for the past two weeks. Pending how pt progress, home with assist and home health. Pt also admits that his short term memory has been worse recently. Pt scored 27/30 on the SLUMS which implies normal for cognitive. Pt scored 138 seconds on TRail Making Part B which implies severe deficits from visual attention , speed of processing, mental flexibility, executive functioning, and task switching. Pt well aware not to drive at this time. Pt had difficulty to recall instructions half way through the assessment. Pt's time at roughly 40th percentile for his age. Goals Self-Feeding Goal Independent Grooming Goal Independent Dressing Goal Independent Toileting Goal Independent Bathing Goal Independent Toilet Transfer Goal Independent Shower Transfer Goal Independent Days to Meet Goals 7 Frequency of Treatment Frequency Of Treatment Once a Day Treatment Plan OT Treatment Plan ADL Training,Functional Cognition Training,Functional Mobility,Patient/Family Education,Discharge Planning Discharge Recommendations OT Discharge Recommendations Home with Assistance,Home Health Home Equipment Needs FWW versus 4WW Transportation Needs at Discharge Private Vehicle
--- NOTE | 2023-07-25 10:45 | OT.IP.EVAL ---
Current Diagnoses COVID-19 (07/24/23) Occupational Therapy Inpatient Evaluation/Re-Eval M1 PT/OT-IP Prior Functional Status Start: 07/25/23 11:32 Freq: NEEDED Status: Active Protocol: Document 07/25/23 11:32 [facility] (Rec: 07/25/23 11:55 [facility] [id number]) Medical Review Prior Functional Status Communication Independent Mobility and Gait Pt states independent but has been considering getting a 4ww as has been feeling shaky in the last 2 weeks on his feet. Activities of Daily Living and IADL's Completely independent with all ADL, IADL, and has meal at his facility. Social History Household Members spouse Living Arrangements [facility] Number of Floors (Floors) One Floor Number of Stairs To Enter/Railing? no steps to enter Home Environment Standard Height Toilet,Walk in Shower,Tub/Shower Home Equipment Grab Bars Near Toilet,Grab Bars In Shower M2 OT-IP Current Condition Start: 07/25/23 11:32 Freq: Status: Active Protocol: Document 07/25/23 11:32 [facility] (Rec: 07/25/23 11:55 [facility] [id number]) Occupational Therapy Current Condition Current Condition Evaluation Date 07/25/23 Treatment Diagnosis COVID+, confusion and acute metabolic encephalopathy Diagnosis Onset Date 07/24/23 M3 OT- IP Subjective and Pain Start: 07/25/23 11:32 Freq: Status: Active Protocol: Document 07/25/23 11:32 [facility] (Rec: 07/25/23 11:55 [facility] [id number]) OT- Subjective Occupational Therapy Visit Type Type Initial Evaluation Visit Start Time 10:45 Visit Stop Time 11:34 Occupational Therapy Visit Comments Patient Comments Pt already sitting up in the chair and agreed to do OT eval . Patient/Caregiver Goals To go home. OT Pain Assessment Pain When Pain Assessed At Rest Pain Present Pain Present Denied Pain M4 OT- IP ADL's Start: 07/25/23 11:32 Freq: Status: Active Protocol: Document 07/25/23 11:32 [facility] (Rec: 07/25/23 11:55 [facility] [id number]) OT [id number] Comments OT Self-Feeding Comments Not at meal time, no issues anticipated. OT ADL-Grooming Comments OT Grooming Comments Not performed. OT ADL-Oral Care Comments Oral Care Comments Pt states did prior. OT ADL-Dressing General Eval Lower Body Dressing Ability Standby Assistance Comments OT Dressing Comments Pt is well aware to dress while seated as states in the past 2 weeks feeling shaky and woozy on his feet. OT ADL-Toileting Comments OT Toileting Comments Not performed. Per nursing aid has been up to the bathroom on his own. OT ADL-Bathing Comments OT Bathing Comments NOt performed. M5 OT- IP IADL's Start: 07/25/23 11:32 Freq: Status: Active Protocol: Document 07/25/23 11:32 [facility] (Rec: 07/25/23 11:55 [facility] [id number]) OT-Instrumental Activities of Daily Living Deficits IADL Deficits Identified Deficits Home Safety Awareness Awareness of Need for Assistance at Home Good Awareness Ability to Problem Solve Emergency Able to Problem Solve Situations Medication Management Medication Management No Deficits Identified Money Management Money Management No Deficits Identified Meal Preparation Meal Preparation Comments [facility] provides meals. Driving Driving Concerns Identified Regarding Safety M6 OT- IP Functional Cognition Start: 07/25/23 11:32 Freq: Status: Active Protocol: Document 07/25/23 11:32 [facility] (Rec: 07/25/23 11:55 [facility] [id number]) Cognitive Factors Limiting Selfcare Function Cognitive Ability Level of Alertness Alert Patient Orientation Name,Age,Birthday,Month,Date, Year,Day of Week,Place, Situation Attention Span Ability Capable of Focused Attention, Capable of Sustained Attention Ability to Follow Commands Able to Follow Multi-Step Commands Memory Description Short Term Impaired Executive Function Ability Unable to Remember Details Cognitive Tests SLUMS Pt scored 27/30 which implies Normal for his education. Pt admit to having more difficulty with his short term memory now. Able to answer 3/ 4 questions right after paragraph read and able to recall 4/5 objects after time passed. Cognitive Comments Cognitive Assessment Comments Pt scored 138 seconds on [place] Making Part B which implies severe deficits from visual attention, speed of processing , mental flexibility, executive functioning, and task switching. Pt well aware not to drive at this time. Pt had difficulty to recall instructions half way through the assessment. Pt's time at roughly 40th percentile for his age. OT- Vision and Hearing OT- Vision Assessment Visual Acuity Glasses For Reading Visual Attentiveness WFL Occular Pursuits Impaired Horizontal Visual Convergence WFL Visual Marroquin WFL Vision Assessment Comments Pt on an occasion right eye lagging during ocular pursuits horizontally. Pt states looking to get his ears checked soon as his kids have been nagging him about it. M7 OT- IP Mobility and Balance Start: 07/25/23 11:32 Freq: Status: Active Protocol: Document 07/25/23 11:32 [facility] (Rec: 07/25/23 11:55 [facility] [id number]) OT-Transfer Assessment Sit to and From Stand Sit to and from Stand Standby Assistance Comments Mobility Comments Pt already sitting down and BP 130/64 hr 70, and after standing dropped to 71/47 hr 86 and pt states feeling woozy and shaky in his legs. Pt sat back down and states feeling better. Nursing notified. OT- Balance Assessment Sitting Balance and Reactions Static Sitting Balance Ability Normal Dynamic Sitting Balance Ability Normal Standing Balance and Reactions Static Standing Balance Ability Good M8 OT- IP Objective Assessments Start: 07/25/23 11:32 Freq: Status: Active Protocol: Document 07/25/23 11:32 [facility] (Rec: 07/25/23 11:55 [facility] [id number]) OT Gross Range of Motion Upper Extremity Range of Motion ROM Impairments Grossly WFL 0-110 shoulder flexion. OT Strength Upper Extremity Strength Assessment Right Impaired Hand Front End Java Developer Strength Hand Dominance Left Comments Strength Comments Pt is right shoulder 4-/5 and 4to 4+/5 distally. LUE 4+/5 throughout. OT- Coordination Assessment Upper Extremity Finger to Nose Test Right UE Impaired Finger Tapping Test Right UE Impaired Comments Coordination Comments Slight delay with right hand. OT Sensation Assessment Comments Summary Comments Slightly decreased from proprioception and kinesthesia for right hand. M9 OT- IP Assessment and Plan Start: 07/25/23 11:32 Freq: Status: Active Protocol: Document 07/25/23 11:32 [facility] (Rec: 07/25/23 11:55 [facility] [id number]) OT Summary Assessment and Plan Potential Rehabilitation Potential Excellent Analytic Complexity at Evaluation Moderate Summary OT Impairments Strength,Balance,Functional Cognition,Functional Mobility, Dressing,Toileting,Bathing, Toilet Transfers,Shower Transfers,Activity Tolerance Progress Towards Goals Slow Progress due to Medical Issues Assessment Summary Pt MOD complexity and here due to COVID +. Not able to mobilize pt much due to pt's BP dropped from 130/64 to 71/ 47 and feeling symptomatic of feeling woozy and shaky on his feet. Pt states has been considering getting a 4ww for home use due to he has been shaky on his feet for the past two weeks. Pending how pt progress, home with assist and home health. Pt also admits that his short term memory has been worse recently. Pt scored 27/30 on the SLUMS which implies normal for cognitive. Pt scored 138 seconds on [place] Making Part B which implies severe deficits from visual attention , speed of processing, mental flexibility, executive functioning, and task switching. Pt well aware not to drive at this time. Pt had difficulty to recall instructions half way through the assessment. Pt's time at roughly 40th percentile for his age. Goals Self-Feeding Goal Independent Grooming Goal Independent Dressing Goal Independent Toileting Goal Independent Bathing Goal Independent Toilet Transfer Goal Independent Shower Transfer Goal Independent Days to Meet Goals 7 Frequency of Treatment Frequency Of Treatment Once a Day Treatment Plan OT Treatment Plan ADL Training,Functional Cognition Training,Functional Mobility,Patient/Family Education,Discharge Planning Discharge Recommendations OT Discharge Recommendations Home with Assistance,Home Health Home Equipment Needs FWW versus 4WW Transportation Needs at Discharge Private Vehicle
--- NOTE | 2023-07-25 11:19 | PT.IIE ---
Current Diagnoses COVID-19 (07/24/23) Physical Therapy Inpatient Evaluation/Re-Eval M1 PT/OT-IP Prior Functional Status Start: 07/25/23 12:24 Freq: NEEDED Status: Active Protocol: Document 07/25/23 12:30 [facility] (Rec: 07/25/23 12:32 [facility] [id number]) Medical Review Prior Functional Status Communication Independent Mobility and Gait Pt states independent but has been considering getting a 4ww as has been feeling shaky in the last 2 weeks on his feet. Activities of Daily Living and IADL's Completely independent with all ADL, IADL, and has meal at his facility. Social History Living Arrangements [facility] Number of Floors (Floors) One Floor Home Environment Standard Height Toilet,Walk in Shower,Tub/Shower Home Equipment Hand Held Shower,Grab Bars Near Toilet,Grab Bars In Shower Employment Status Retired M2 PT-IP Current Condition Start: 07/25/23 12:24 Freq: NEEDED Status: Active Protocol: Document 07/25/23 11:19 [facility] (Rec: 07/25/23 12:42 AB [id number]) Physical Therapy Current Condition Current Condition Evaluation Date 07/25/23 Treatment Diagnosis Covid; metabolic encephalopathy; difficulty in walking Onset Date 07/24/23 M3 PT-IP Subjective Start: 07/25/23 12:24 Freq: NEEDED Status: Active Protocol: Document 07/25/23 11:19 [facility] (Rec: 07/25/23 12:42 AB [id number]) Subjective Physical Therapy Visit Type Type Initial Evaluation Visit Start Time 11:19 Visit Stop Time 12:05 Number of FOOD SERVICE COORDINATOR Visits 0 Physical Therapy Visit Comments Patient Comments agreeable to do PT Therapy Pain Assessment Pain Present Pain Present Denied Pain M4 PT-IP Mobility and Gait Start: 07/25/23 12:24 Freq: NEEDED Status: Active Protocol: Document 07/25/23 11:19 [facility] (Rec: 07/25/23 12:42 [facility] [id number]) PT-Bed Mobility Assessment Supine to Sit Supine to Sit Independent Sit to Supine Sit to Supine Independent PT-Transfer Assessment Sit to and From Stand Sit to and from Stand Standby Assistance,Contact Guard Assistance,1 Person Assistance,Use of Upper Extremities Equipment Transfer Assistive Device Gait Belt,Front Wheeled Walker Orthotic/Prosthetic Devices or Brace: No Transfers Transfer Destination Bed,Chair Transfer Technique Stand Step Pivot Transfer Ability Level of Assist Standby Assistance,Contact Guard Assistance,1 Person Assistance,Use of Upper Extremities Comments Mobility Comments pt sitting on the chair and agreeable to do PT. per OT: pt had incidence of orthostatic hypotension during OT session. BP monitored during PT session. BP in sittin/52. pt completed sit to stand CGA. Attempted to get BP reading but pt unable to tolerate standing long enough to get a reading. pt with c/o lightheadedness needing to sit back down. BP sitting after ~ 20 sec standin/36. pt rested in sitting. BP checked again after ~ 2 min rest: 110 /46. pt completed sit to stand SBA to CGA and step transfer to bed using FWW CGA. completed sit <>supine independent. no c/o dizziness /lightheadedness. completed sit to stand from EOB SBA and step transfer to chair SBA using FWW. BP checked after transfer sitting on chair: 143 /79 but pt moving UE during testing. pt without c/o lightheadedness. set up pt for lunch. table next to pt and call light also positioned close to pt. chair alarm set up. pt stated that he plans to get a 4WW to use at home. PT-Balance Assessment Sitting Balance and Reactions Static Sitting Balance Ability Normal Dynamic Sitting Balance Ability Normal Standing Balance and Reactions Static Standing Balance Ability Good Dynamic Standing Balance Ability Fair Device Used FWW M5 PT-IP Objective Assessments Start: 07/25/23 12:24 Freq: NEEDED Status: Active Protocol: Document 07/25/23 11:19 [facility] (Rec: 07/25/23 12:42 [facility] [id number]) Orientation Orientation/Cognition Level of Alertness Alert Orientation Name,Place,Situation Language Function Ability Hard of Hearing Safety Awareness Decreased Safety Awareness Gross Range of Motion Lower Extremity ROM Assessment Within Functional Limits Strength Lower Extremity Strength Assessment Within Functional Limits Coordination Assessment Gross Coordination Gross Coordination WNL Sensation Assessment Sensation Gross Sensation WNL Muscle Tone Muscle Tone WNL Yes M6 PT-IP Treatment Start: 07/25/23 12:24 Freq: NEEDED Status: Active Protocol: Document 07/25/23 11:19 [facility] (Rec: 07/25/23 12:42 AB [id number]) Physical Therapy Treatment Education Education Provided Safety M7 PT-IP Assessment and Plan Start: 07/25/23 12:24 Freq: NEEDED Status: Active Protocol: Document 07/25/23 11:19 [facility] (Rec: 07/25/23 12:42 AB [id number]) PT Summary Assessment and Plan Potential Rehabilitation Potential Fair Status of Condition at Evaluation Evolving Summary Impairments Balance,Transfers,Gait, Activity Tolerance Assessment Summary pt is an 87 y/o M who presented to the ED with confusion and h/o falls. pt admitted for Covid with metabolic encephalopathy. pt is independent with bed mobility and requiring SBA to CGA for transfers using FWW. Ambulation not attempted due to pt having orthostatic hypotension. per nurse, hospitalist stated that hypotension is probably due to lasix and will discontinue lasix at this time. will continue to assess pt's mobility progress for safe d/c plan. Goals Transfer Goal Independent,Front Wheeled Walker,Four Wheeled Walker Gait Goal Independent,Front Wheel Walker ,Four Wheel Walker Gait Distance 200 Other Goals improve transfers and ambulation using LRAD/without AD 300 ft mod I Days to Meet Goals 5 Frequency of Treatment Frequency Of Treatment Once a Day Treatment Plan Physical Therapy Treatment Plan Bed Mobility Training,Transfer Training,Gait Training, Therapeutic Exercise,Balance Retraining,Discharge Planning, Hot or Cold Pack,Neuromuscular Re-ed,Coordination Retraining Precautions Other Precautions Covid; BP Recommendations To Nursing Amount of Assist Needed 1 Person Assist Discharge Recommendations PT Discharge Recommendations Home with Assistance,Home Health Equipment Needed for Home Before FWW/4WW Discharge Transportation Needs at Discharge Private Vehicle
--- NOTE | 2023-07-25 12:04 | CM.DANOTE ---
Initial DCP Assessment Note Pt is an 87 yo male, resident at [facility] in [place], arrives with COVID+ acute metabolic encephalopathy. Patient much improved and has been cleared by therapies for return home; notes reflect patient continues to have drops in BP with movement. Patient able to ambulate to BR indp. PCP: Unknown Payer: [employer] Reviewed chart, pt discussed in multidisciplinary rounds this morning. Therapy has cleared pt for return home w/family to assist w/ HH services. Patient eager to return home. It appears patient is getting close to returning to physical and cognitive baseline. No barriers identified at this time to patient's safe discharge home w/family to assist; r/o need and agreement for HH services. Patient requires a PCP for referral to HH. CM team will plan to follow clinical course closely. 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 Yes Advance Directives on File No History Provided By Family Member,Medical Record Prior Living Arrangements [facility] Household Members spouse Type of transporation used prior to Drives own vehicle admit Facility Name Admitted From: [facility] Willing to Return to Facility? Yes Independent with ADL's Yes Is patient alert and oriented? Yes Patient/Family Preference Home with Home Health Barriers to Discharge No Discharge Plan Home Transportation Arrangement Family vs facility scarlet Additional Comment r/o need and agreement for HH services upon discharge
--- NOTE | 2023-07-25 13:07 | PM.PN.1 ---
Subjective Subjective Interval history: 87 M admitted with encephalopathy. He was given lasix overnight for possible heart failure as well, though developed orthostasis this afternoon working with therapy. He is alert this morning. SLUMS . This morning he is hesitant to tell me information, seems annoyed by questioning. Exam Vital Signs (past 8 hours): - 07/25/23 07:57 07/25/23 08:17 07/25/23 11:11 Temperature 97.1 F L Pulse Rate 57 L 64 86 Respiratory Rate 18 Blood Pressure 88/41 L 144/62 H 71/47 L Pulse Oximetry 94 95 Oxygen Flow Rate 0 0 07/25/23 11:13 07/25/23 11:40 07/25/23 11:45 Temperature Pulse Rate 70 70 81 Respiratory Rate Blood Pressure 144/62 H 110/46 L 143/79 H Pulse Oximetry 95 Oxygen Flow Rate 0 07/25/23 12:59 Temperature 97.2 F L Pulse Rate Respiratory Rate 20 Blood Pressure Pulse Oximetry Oxygen Flow Rate Oxygen Delivery Method Room Air Oxygen Flow Rate 0 Narrative Exam Narrative: Gen: No acute distress, sitting upright in chair CV: RRR Pulm: CTA b/l Abd: S NT ND Ext: no edema. Objective Labs 07/25/23 02:10 07/24/23 11:18 Labs: Laboratory Results - last 24 hr 07/24/23 07/24/23 07/24/23 02:10 11:18 13:20 WBC RBC Hgb Hct MCV MCH MCHC RDW Plt Count Neut % (Auto) Lymph % (Auto) [place] % (Auto) Eos % (Auto) Baso % (Auto) Neut # (Auto) Lymph # (Auto) [place] # (Auto) Eos # (Auto) Baso # (Auto) ABG Sample Site ABG pH ABG pCO2 ABG pO2 ABG HCO3 ABG Total CO2 ABG O2 Saturation ABG Base Excess FiO2 Sodium 136 L 136 L Potassium 3.8 3.7 Chloride 105 Carbon Dioxide 21 L BUN 22 H Creatinine 1.13 Estimated GFR > 60 BUN/Creatinine Ratio 19.5 Glucose 110 121 H Calcium 9.1 Ammonia Troponin I 0.055 H NT-Pro-B Natriuret Pep 7070 H TSH 0.878 Urine RBC Urine WBC Ur Squamous Epith Cells Urine Bacteria Urine Mucus Vol Urine Centrifuged CSF Tube Number CSF Volume CSF Appearance CSF Color CSF WBC CSF RBC CSF Mononuclear WBCs CSF Polynuclear WBCs CSF Glucose CSF Total Protein U Opiates 300ng/mL cut Ur Oxycodone Screen Urine Methadone Screen Ur Barbiturates Screen U Tricyclic Antidepress Ur Phencyclidine Scrn Ur Amphetamines Screen U Methamphetamines Scrn Ur MDMA Scrn (Ecstasy) U Benzodiazepines Scrn Urine Cocaine Screen U Marijuana (THC) Screen Urine pH Urine Specific [place] Ethyl Alcohol < 10 Ur Creatinine SARS-CoV-2 (PCR) Influenza A (RT-PCR) Influenza B (RT-PCR) RSV (PCR) 07/24/23 07/24/23 07/24/23 18:12 18:19 18:20 WBC RBC Hgb Hct MCV MCH MCHC RDW Plt Count Neut % (Auto) Lymph % (Auto) [place] % (Auto) Eos % (Auto) Baso % (Auto) Neut # (Auto) Lymph # (Auto) [place] # (Auto) Eos # (Auto) Baso # (Auto) ABG Sample Site Right radial ABG pH 7.44 ABG pCO2 28.4 L ABG pO2 75 L ABG HCO3 19 L ABG Total CO2 20 L ABG O2 Saturation 96 ABG Base Excess -5.0 L FiO2 21 Sodium Potassium Chloride Carbon Dioxide BUN Creatinine Estimated GFR BUN/Creatinine Ratio Glucose Calcium Ammonia Troponin I NT-Pro-B Natriuret Pep TSH Urine RBC 1-5/hpf Urine WBC 1-5/hpf Ur Squamous Epith Cells 1-5 /hpf Urine Bacteria None seen Urine Mucus 1+ H Vol Urine Centrifuged 10ml (spun) CSF Tube Number CSF Volume CSF Appearance CSF Color CSF WBC CSF RBC CSF Mononuclear WBCs CSF Polynuclear WBCs CSF Glucose CSF Total Protein U Opiates 300ng/mL cut Negative Ur Oxycodone Screen Negative Urine Methadone Screen Negative Ur Barbiturates Screen Negative U Tricyclic Antidepress Negative Ur Phencyclidine Scrn Negative Ur Amphetamines Screen Negative U Methamphetamines Scrn Negative Ur MDMA Scrn (Ecstasy) Negative U Benzodiazepines Scrn Negative Urine Cocaine Screen Negative U Marijuana (THC) Screen Negative Urine pH Normal Urine Specific [place] Normal Ethyl Alcohol Ur Creatinine Normal SARS-CoV-2 (PCR) Positive H Influenza A (RT-PCR) Flu a negative Influenza B (RT-PCR) Flu b negative RSV (PCR) Negative 07/24/23 07/25/23 07/25/23 19:22 02:10 08:03 WBC 9.6 RBC 4.49 L Hgb 14.8 Hct 42.3 MCV 94.3 MCH 32.9 MCHC 34.9 RDW 13.3 Plt Count 161 Neut % (Auto) 76.9 H Lymph % (Auto) 9.1 L [place] % (Auto) 13.5 Eos % (Auto) 0.0 L Baso % (Auto) 0.5 Neut # (Auto) 7400 H Lymph # (Auto) 900 L [place] # (Auto) 1300 H Eos # (Auto) 0 Baso # (Auto) 0 ABG Sample Site ABG pH ABG pCO2 ABG pO2 ABG HCO3 ABG Total CO2 ABG O2 Saturation ABG Base Excess FiO2 Sodium Potassium Chloride Carbon Dioxide BUN Creatinine Estimated GFR BUN/Creatinine Ratio Glucose Calcium Ammonia < 9 L Troponin I 0.053 H 0.061 H NT-Pro-B Natriuret Pep 5320 H TSH Urine RBC Urine WBC Ur Squamous Epith Cells Urine Bacteria Urine Mucus Vol Urine Centrifuged CSF Tube Number 3 CSF Volume 0.75 ml CSF Appearance Clear CSF Color Colorless CSF WBC 7 H CSF RBC 109 CSF Mononuclear WBCs 97 CSF Polynuclear WBCs 3 CSF Glucose 71 H CSF Total Protein 67 H U Opiates 300ng/mL cut Ur Oxycodone Screen Urine Methadone Screen Ur Barbiturates Screen U Tricyclic Antidepress Ur Phencyclidine Scrn Ur Amphetamines Screen U Methamphetamines Scrn Ur MDMA Scrn (Ecstasy) U Benzodiazepines Scrn Urine Cocaine Screen U Marijuana (THC) Screen Urine pH Urine Specific [place] Ethyl Alcohol Ur Creatinine SARS-CoV-2 (PCR) Influenza A (RT-PCR) Influenza B (RT-PCR) RSV (PCR) PFSH Social History household members: spouse Smoking Status: Never smoker Assessment & Plan Assessment & Plan narrative: 1. Acute metabolic encephalopathy due to COVID 19 - has improved markedly today. - likely due to COVID infection - CSF with 7 WBC, elevated protein, meningtitis panel ordered this morning, not done initially. Does not appear to be meningitis or encephalitis. - PT/OT ordered. 2. Orthostatic hypotension - developed after furosemide given for possible heart failure - stop lasix - no need for additional fluids at this time, continue to monitor - continue to hold home antihypertensives for now. 3. HTN - hold home antihypertensives for now 4. BPH - hold home flomax given orthstasis for now. 5. Myocardial injury - troponin stable x4 around 0.06. No EKG findings consistent with acute ischemia and no chest pain. No need to further trend unless symptoms change. Code: Full, surrogate is patient's son DVT: Lovenox Dispo: discharge home (cap sante) tomorrow if orthostasis improved, continue PT/OT.
[2023-07-25 15:44] LABS: Cryptococcus neoformans/gattii Not Detected (Not Detect); Enterovirus Not Detected (Not Detect); Escherichia coli K1 Not Detected (Not Detect); Haemophilus influenzae Not Detected (Not Detect); Herpes simplex virus 1 Not Detected (Not Detect); Herpes simplex virus 2 Not Detected (Not Detect); Human herpesvirus 6 Not Detected (Not Detect); Human parechovirus Not Detected (Not Detect); Listeria monocytogenes Not Detected (Not Detect); Neisseria meningitidis Not Detected (Not Detect); Streptococcus agalactiae Not Detected (Not Detect); Streptococcus pneumoniae Not Detected (Not Detect); Varicella Zoster Virus Not Detected (Not Detecte)
--- NOTE | 2023-07-25 17:41 | PC.NURSE ---
Addendum entered by Heidy Encarnacion R.N. 07/25/23 18:55: Rechecked orthostatics at 1845, 96/54 sitting. Pt unable to stand long enough to take BP standing - pt stated feeling light headed. Will continue to monitor. Original Note: Day shift: Pt A&Ox3-4 this shift. Mentation much improved, patient not combative, following directions, calm and cooperative. MD Gonzalez ok'ed d/c'ing sitter. Pt experiencing significant orthostatic hypotention. MD Gonzalez stopped lasix dose. Patient continues to deny pain and has refused Lovenox and Tylenol today. OOB with SBA. Bed/chair alarm on. Will continue to monitor.
[2023-07-26 04:00] VITALS: BP 99/57; PULSE 91; RESP 16; TEMP 35.9; O2SAT 96
[2023-07-26] MEDS: ENOXAPARIN 40 MG/0.4 ML SYRINGE SUBCUT (08:29)
--- NOTE | 2023-07-26 09:00 | PT.IPTN ---
Current Diagnoses COVID-19 (07/24/23) Physical Therapy Treatment Note M2 PT-IP Current Condition Start: 07/25/23 12:24 Freq: NEEDED Status: Active Protocol: Document 07/25/23 11:19 AB (Rec: 07/25/23 12:42 AB [id number]) Physical Therapy Current Condition Current Condition Evaluation Date 07/25/23 Treatment Diagnosis Covid; metabolic encephalopathy; difficulty in walking Onset Date 07/24/23 M3 PT-IP Subjective Start: 07/25/23 12:24 Freq: NEEDED Status: Active Protocol: Document 07/26/23 09:32 TS (Rec: 07/26/23 09:48 TS [id number]) Subjective Physical Therapy Visit Type Type Treatment Note Visit Start Time 09:00 Visit Stop Time 09:26 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 M4 PT-IP Mobility and Gait Start: 07/25/23 12:24 Freq: NEEDED Status: Active Protocol: Document 07/26/23 09:32 TS (Rec: 07/26/23 09:48 TS [id number]) PT-Transfer Assessment Sit to and From Stand Sit to and from Stand Standby Assistance,Use of Upper Extremities Equipment Transfer Assistive Device Gait Belt,Front Wheeled Walker Orthotic/Prosthetic Devices or Brace: No Comments Mobility Comments BP sitting 137/66 prior to mobility. He performed sit to stand with FWW SBA with BUE support pushing from arms of chair. In standing attempted BP reading but pt could not remain still and became lightheaded. BP checked again in sitting 100/46. Pt agreed to ambulate in room. He ambulated in room ~60'SBA with FWW, slightly with a NBOS. Pt sat back in chair, BP 122/66 after ambulation. Pt performed sit to stand x5 in 20 secs SBA with FWW. Pt was left in chair, chair alarm on, call light within reach. Gait Assessment Gait Gait Assistance Required: Standby Assistance Distance (Feet) 60 Able to Maintain Weight Bearing Status No During Gait Assistive Devices Assistive Device Front Wheeled Walker Orthotic/Prosthetic Devices or Brace: No Gait Deviations General Gait Pattern Decreased Stride Length, Decreased Feet Clearance, Narrow Based Gait Factors Limiting Gait Function Factors Limiting Gait Function Decreased Activity Tolerance, Difficulty Following Directions,Poor Balance,Poor Safety Awareness Comments Gait Comments See mobility comments PT-Balance Assessment Sitting Balance and Reactions Static Sitting Balance Ability Normal Dynamic Sitting Balance Ability Normal Standing Balance and Reactions Static Standing Balance Ability Good Dynamic Standing Balance Ability Fair Device Used FWW Functional Assessments Functional Tests 5 Times Sit to Stand x5 20 secs M5 PT-IP Objective Assessments Start: 07/25/23 12:24 Freq: NEEDED Status: Active Protocol: Document 07/25/23 11:19 AB (Rec: 07/25/23 12:42 AB [id number]) Orientation Orientation/Cognition Level of Alertness Alert Orientation Name,Place,Situation Language Function Ability Hard of Hearing Safety Awareness Decreased Safety Awareness Gross Range of Motion Lower Extremity ROM Assessment Within Functional Limits Strength Lower Extremity Strength Assessment Within Functional Limits Coordination Assessment Gross Coordination Gross Coordination WNL Sensation Assessment Sensation Gross Sensation WNL Muscle Tone Muscle Tone WNL Yes M6 PT-IP Treatment Start: 07/25/23 12:24 Freq: NEEDED Status: Active Protocol: Document 07/26/23 09:32 TS (Rec: 07/26/23 09:48 TS [id number]) Physical Therapy Treatment Education Education Provided Safety M7 PT-IP Assessment and Plan Start: 07/25/23 12:24 Freq: NEEDED Status: Active Protocol: Document 07/26/23 09:32 TS (Rec: 07/26/23 09:48 TS [id number]) PT Summary Assessment and Plan Potential Rehabilitation Potential Fair Summary Impairments Balance,Transfers,Gait, Activity Tolerance Progress Towards Goals Slow Progress due to Medical Issues Assessment Summary Jesus is making progress with his mobility but is limited by his hypotension. He is SBA for sit to stands and demonstrates good carryover of STS technique. He progressed his gait to ~60' SBA with FWW, reports feeling more stable with AD. He continues to have some dizziness when on feet. BP in sitting 137/66 and 100/ 46 sitting after standing for ~2mins, pt could not stay still for BP in standing. PT continues to recommend home with assist and HHPT PT. Recommending pt obtain FWW/4WW at d/c. Goals Transfer Goal Independent,Front Wheeled Walker,Four Wheeled Walker Gait Goal Independent,Front Wheel Walker ,Four Wheel Walker Gait Distance 200 Other Goals improve transfers and ambulation using LRAD/without AD 300 ft mod I Days to Meet Goals 5 Frequency of Treatment Frequency Of Treatment Once a Day Treatment Plan Physical Therapy Treatment Plan Bed Mobility Training,Transfer Training,Gait Training, Therapeutic Exercise,Balance Retraining,Discharge Planning, Hot or Cold Pack,Neuromuscular Re-ed,Coordination Retraining Precautions Other Precautions Covid; BP Recommendations To Nursing Amount of Assist Needed 1 Person Assist Discharge Recommendations PT Discharge Recommendations Home with Assistance,Home Health Equipment Needed for Home Before FWW/4WW Discharge Transportation Needs at Discharge Private Vehicle
--- NOTE | 2023-07-26 11:16 | CM.DPC ---
DCP Cont. Reviewed EMR and team rounds for status updates. Pt is getting closer to d/c, possibly today if he is able to mobilize without orthostasis. Called pt's son, Jhony, and left a message re: what the family's preference is for which home health agency they would like us to refer to for pt's d/c return home. Requested return call to discuss.
--- NOTE | 2023-07-26 11:43 | CM.DPC ---
DCP Cont. Update: Pt medically stable to d/c today. Spoke with Jhony, his son, who is coming up from [place] today and will plan to transport him back to [facility] about 2:00pm. Updated inpt team. No further d/c planning needs identified at this time.
[2023-07-26 12:00] VITALS: BP 118/53; PULSE 68; RESP 20; TEMP 36; O2SAT 98
--- NOTE | 2023-07-26 12:17 | P.DS_ITS ---
History of Present Illness History of Present Illness Chief complaint: Right Leg Weakness Narrative: The pt is a 87 yo from [facility] who was brought to the ER tonight due to confusion. During my interview he was being very uncooperative with the nursing staff. He was refusing to take his clothes off, and had a bowel movment in his pants and on the floor. Jesus refused to answer any of my questions and would not let the nurses look at his IV site or change his IV site. He is very beligerent and agitated. In the ER, the staff was able to talk to his son who stated that the pt is normally able to talk and converse without difficulty. Discharge Providers Provider Date of admission: 07/24/23 19:52 Discharge Date: 07/26/23 Consults: 07/25/23 10:01 Consult to Occupational Therapy Evaluate & Treat Comment: Physician Instructions: Evaluate and treat 07/25/23 10:02 Consult to Physical Therapy Evaluate & Treat Comment: Physician Instructions: Evaluate and Treat 07/26/23 11:13 Consult to Physical Therapy Evaluate & Treat Comment: safe home mobility Physician Instructions: Front Wheeled Walker Discharge provider: Tomasz Dias MD Summary Hospital Course Discharge Diagnosis: 1. Acute metabolic encephalopathy due to COVID 19, present on admission and improved. - has improved markedly over the last 2 days. - likely due to COVID infection - CSF with 7 WBC, elevated protein, meningtitis panel ordered this morning, not done initially. Does not appear to be meningitis or encephalitis. - PT/OT ordered. He did well. 2. Orthostatic hypotension, presemt on admission and improved. - developed after furosemide given for possible heart failure - stop lasix - no need for additional fluids at this time, continue to monitor - continue to hold home antihypertensives for now. - will resume metoprolol and hold lisonopril/ 3. HTN, rpesent on admission and not active. - hold home antihypertensives for now 4. BPH, present on admission and active. - hold home flomax given orthstasis for now. 5. Myocardial injury, present on admission and improved. - troponin stable x4 around 0.06. No EKG findings consistent with acute ischemia and no chest pain. No need to further trend unless symptoms change. Hospital Course: He was admitted with confusion and weakness. H had a negative lumbar puncture. He was also orthostatic and this improved with holding some of his medications. On the day of discharge, he was ambulating well and had a normal mental status. He desired discharge home. He had a mild troponin elevation consistent with demand ischemia. He had no symptoms of chest pain or dyspnea. He will have lasix and lisinopril held at discharge. This can be reassessed at follow up with PCP. Status at Discharge Cognitive/behavioral status at discharge: at baseline, oriented Functional status at discharge: independent ambulation Overall status at discharge: patient is back to baseline Time Spent with Patient Time spent: Greater than 30 minutes Exam Vital Signs (past 8 hours): - 07/26/23 08:20 Oxygen Delivery Method Room Air Oxygen Delivery Method Room Air Oxygen Flow Rate 0 Narrative Exam Narrative: NAD, speech is normal Lungs are clear with normal effort CV regular No leg edema. Normal extremity strength. Objective ECG Impression: EKG 1. Sinus rhythm with PACs ST depression noted in lead to lead V4 V5 V6 no obvious ST elevations, no priors to compare EKG number 2 sinus bradycardia with PAC your [address] depression in lead 2 Imaging MRI - head: Radiologist's impression: BRAIN MRI: No findings of acute or subacute infarction can be seen. Note is made of age-appropriate brain parenchymal volume loss and chronic small vessel ischemic changes. No masses or abnormal enhancement can be seen. BRAIN MR ANGIOGRAM: No significant intracranial arterial abnormality is seen. NECK MR ANGIOGRAM: Within the arteries of the neck, no hemodynamically significant stenosis can be seen. Additional findings: Bovine type aortic branching pattern CT scan - head: Radiologist's impression: No acute intracranial pathology. Chest x-ray: Radiologist's impression: Question subtle changes of congestive heart failure. Labs 07/25/23 02:10 07/24/23 11:18 Labs: Laboratory Results - last 24 hr 07/24/23 19:22 CSF C.neoform/gat PCR Not detected CSF CMV DNA (PCR) Not detected CSF Enterovirus (PCR) Not detected CSF E. coli (PCR) Not detected CSF H. influenzae (PCR) Not detected CSF HSV I (PCR) Not detected CSF HSV II (PCR) Not detected CSF HHV 6 (PCR) Not detected CSF L.monocytogenes PCR Not detected CSF N. meningitidis PCR Not detected CSF Parechovirus (PCR) Not detected CSF S. agalactiae (PCR) Not detected CSF S. pneumoniae (PCR) Not detected CSF VZV (PCR) Not detected PFSH Social History household members: spouse Smoking Status: Never smoker Discharge Plan Discharge Plan Patient Disposition: Home Provider Discharge Comment: Stable for discharge, Asymptomatic Covid. Discharge orders & Medications Prescriptions: Continued metoprolol succinate 25 mg tablet extended release 24 hr 25 mg PO BEDTIME finasteride 5 mg tablet 5 mg PO BEDTIME rosuvastatin 5 mg tablet 5 mg PO BEDTIME Discontinued lisinopril 10 mg tablet 10 mg PO BEDTIME Discharge Health Status Multidrug resistant organism: No MDRO Diet/Activity/Treatments Diet: Diet as Tolerated Activity: As tolerated. Skin/Wound/Dressing Care Report to your healthcare provider any signs of infection, such as:: chills, fever, night sweats and increased pain Visit Report/Discharge Packet Stand Alone Forms: Patient Portal/API
--- NOTE | 2023-07-26 15:27 | PC.NURSE ---
Pt discharged back to [facility] at 1510, escorted off floor in wheelchair accompanied by son and hospital staff. IV removed, discharge teaching provided including follow up appointments, worsening symptoms and changes to medication regimen. Questions answered and concerns addressed. Patient left floor with all belongings.
== END 2023-07-26 15:31 | disposition home or self-care (01) | DRG 177 ==
LOC: ED 19:51 → AC 19:53
PROVIDERS: Internal Medicine; Admitting Provider Internal Medicine; Emergency Provider Emergency Medicine; Referring Provider Emergency Medicine; Visit Provider Internal Medicine
DX: U07.1 COVID-19 (principal); G93.41 Metabolic encephalopathy; I5A Non-ischemic myocardial injury (non-traumatic); I50.9 Heart failure, unspecified; I95.2 Hypotension due to drugs; T50.1X5A Adverse effect of loop [high-ceiling] diuretics, initial encounter; N40.0 Benign prostatic hyperplasia without lower urinary tract symptoms; I11.0 Hypertensive heart disease with heart failure
CPT/HCPCS: 0241U; 36415; 36600; 62270; 70450; 70548; 70553; 71045; 80048; 80053; 80305; 80320; 81003; 81015; 82140; 82550; 82805; 82945; 83690; 83880; 84157; 84443; 84484; 85025; 87070; 87205; 87798; 89051; 93005; 96374; 97116; 97129; 97163; 97166; 97530; 99285; J1630; J1650; J1940; J2060

== ENCOUNTER → 2024-09-07 12:08 | Outpatient (CLI) | payer MEDICARE, OTHER, SELFPAY ==
[2023-07-24 20:10] VITALS: BMI 30.4
--- NOTE | 2024-09-07 12:09 | DI.RAD.S_ITS ---
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 COMPARISON: [facility], CR, XR SHOULDER LT MIN 2V, 09/07/2024, 12:06. FINDINGS: Bones: No fractures or dislocations. No suspicious bony lesions. Soft tissues: No suspicious soft tissue calcifications. IMPRESSION: No acute bony abnormality. Dictated by: Agustín Guzman M.D. on 09/07/2024 at 12:31 Approved by: Agustín Guzman M.D. on 09/07/2024 at 12:32
--- NOTE | 2024-09-07 12:09 | DI.RAD.S_ITS ---
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 COMPARISON: [facility], CR, XR HUMERUS LT 2V, 09/07/2024, 12:06. FINDINGS: Bones: No fractures or dislocations. No suspicious bony lesions. Visualized ribs appear intact. Soft tissues: No suspicious soft tissue calcifications. IMPRESSION: No acute bony abnormality. Dictated by: Agustín Guzman M.D. on 09/07/2024 at 12:32 Approved by: Agustín Guzman M.D. on 09/07/2024 at 12:32
== END ==
PROVIDERS: Referring Provider Student in an Organized Health Care Education/Training Program; Visit Provider Student in an Organized Health Care Education/Training Program
DX: S43.409A Unspecified sprain of unspecified shoulder joint, initial encounter (principal); M79.602 Pain in left arm; W19.XXXA Unspecified fall, initial encounter
CPT/HCPCS: 73030; 73060

== ENCOUNTER 2025-03-24 10:55 | Inpatient (IN) | payer MEDICARE, OTHER, SELFPAY ==
[2023-07-24 20:10] VITALS: BMI 30.4
[2025-03-24] VITALS (40 sets, daily range): BP systolic 100–135; BP diastolic 6–94; PULSE 75–156; RESP 19–35; TEMP 36.3–36.6; O2SAT 85–100; BMI 30.3; BMI 33.5
--- NOTE | 2025-03-24 11:21 | DI.RAD.S_ITS ---
PROCEDURE: XR CHEST 1V INDICATIONS: Shortness of breath TECHNIQUE: One view of the chest was acquired. COMPARISON: [facility], CR, XR CHEST 1V, 07/24/2023, 11:33. FINDINGS: Surgical changes and devices: None. Lungs and pleura: Lungs are clear on the left but at the right lower lobe new pneumonia has developed and there is possibly a subpulmonic small pleural effusion on the right. No or pneumothorax. Mediastinum: Mediastinal contours appear normal. Heart size is normal. Bones and chest wall: No suspicious bony lesions. Overlying soft tissues appear unremarkable. IMPRESSION: New pneumonia right lung base with likelihood of associated small subpulmonic right pleural effusion. Dictated by: Dominic Dave M.D. on 03/24/2025 at 12:08 Approved by: Dominic Dave M.D. on 03/24/2025 at 12:09
--- NOTE | 2025-03-24 12:18 | DI.CT.S_ITS ---
PROCEDURE: CT ANGIO CHEST PE PROTOCOL INDICATIONS: Dyspnea TECHNIQUE: After the administration of intravenous contrast, 2 mm thick sections acquired from the pulmonary apices to the posterior costophrenic angles. 3-dimensional maximum intensity projection (MIP) coronal and sagittal reformats were then acquired through the thorax. For radiation dose reduction, the following was used: automated exposure control, adjustment of mA and/or kV according to patient size. COMPARISON: [facility], , US PERIPH VENOUS LOW EXTREM BI, 03/24/2025, 12:41. [facility], CR, XR CHEST 1V, 03/24/2025, 11:24. FINDINGS: Image quality: This examination is limited by involuntary motion artifact. Pulmonary arteries: Pulmonary arteries are normal in size, and demonstrate no intraluminal filling defects to suggest central pulmonary embolism. Lower Neck: No enlarged lymph nodes. Thyroid: No thyroid nodules which require sonographic follow up, per consensus guidelines. Axillae: No enlarged lymph nodes. Chest Wall: Unremarkable. Bones: Age-appropriate bony degenerative changes are seen. Accentuated thoracic kyphosis is seen. Lungs and Pleura: There is a small to moderate right-sided pleural effusion. There is a trace left-sided pleural effusion. Atelectasis is seen at both lung bases. Mild interstitial prominence can be seen on both sides. No pneumothorax is seen. Heart: Heart size is mildly to moderately enlarged. There is a moderate pericardial effusion. Moderate to severe coronary calcification is seen. Thoracic Vessels: No aortic aneurysm. Mediastinum and Angelina: No enlarged lymph nodes. Esophagus: No wall thickening. No hiatal hernia. Upper Abdomen: Mild reflux of contrast can be seen into the inferior vena cava and into the hepatic veins. Visualized upper abdomen solid organs and bowel loops appear normal. IMPRESSION: No pulmonary embolus. Bilateral pleural effusions are seen, with overlying atelectasis, right worse than left. There is [id number]-pinnkosf cardiomegaly. Interstitial prominence is also seen. There is also mild reflux of contrast into the inferior vena cava and into the hepatic veins. This constellation of findings is commonly seen in CHF. A moderate pericardial effusion can be seen. Additional findings: Moderate to severe coronary artery calcification Dictated by: Servando Anderson M.D. on 03/24/2025 at 12:41 Approved by: Servando Anderson M.D. on 03/24/2025 at 12:44
[2025-03-24 12:21] LABS: Add Manual Diff / Slide Review NO; Hematocrit 42.8 % (41-53); Hemoglobin 14.5 g/dL (13.5-17.5); Lymphocytes Absolute Auto 800 /uL (1100-4500); Mean Corpuscular HGB Conc 33.8 % (30-36); Mean Corpuscular Hemoglobin 32.9 PG (26-34); Mean Corpuscular Volume 97.6 fL (80-100); Platelet Count 157 X10^3/uL (150-400)
--- NOTE | 2025-03-24 12:26 | ED.SOB ---
HPI - SOB/Dyspnea General Chief Complaint: Shortness of Breath/Dyspnea Stated Complaint: SOB, swelling in both legs x 2 weeks Time Seen by Provider: 03/24/25 11:57 Source: patient Mode of arrival: Family Vehicle Limitations: no limitations History of Present Illness HPI Narrative: Patient brought in by private vehicle by family from [facility]. Patient has had 1 week of shortness of breath and bilateral leg calf ankle foot swelling. Denies any chest pain. No prior history of blood clots in legs or lungs or congestive heart failure. Patient does have history of pneumonia in the past. Patient denies any sick contacts. Patient states he gets very short of breath with short amount of walking he does at home. Patient states is supposed to use a walker but sometimes forgets to use it. Related Data Home Medications ?Medication ?Instructions ?Recorded ?Confirmed finasteride 5 mg tablet 5 mg PO BEDTIME 07/25/23 03/24/25 metoprolol succinate 25 mg 25 mg PO BEDTIME 07/25/23 03/24/25 tablet,extended release 24 hr rosuvastatin 5 mg tablet 5 mg PO BEDTIME 07/25/23 03/24/25 aspirin 81 mg tablet,delayed 81 mg PO DAILY 09/07/24 03/24/25 release Allergies Allergy/AdvReac Type Severity Reaction Status Date / Time No Known Drug Allergies Allergy Verified 03/24/25 11:17 Review of Systems Review of Systems Narrative: GENERAL: Negative chills, fatigue, malaise, fever, sweats. HEENT: Negative sinus pain, ear pain, sore throat RESPIRATORY: Positive dyspnea, cough CARDIOVASCULAR: Negative chest pain, palpitations GASTROINTESTINAL: Negative vomiting, nausea, abdominal pain : Negative dysuria, frequency, hematuria MUSCULOSKELETAL: Negative muscle or bony pain, positive leg swelling SKIN: Negative rash, skin lesions NEUROLOGIC: Negative weakness, numbness ROS Unobtainable: All systems reviewed & are unremarkable except as noted in HPI and below Patient History Medical History (Updated 03/24/25 @ 18:10 by Tiana Solis MD) Cognitive dysfunction HLD (hyperlipidemia) HTN (hypertension) BPH (benign prostatic hyperplasia) Social History household members: none Smoking Status: Never smoker alcohol intake: current Exam Narrative Exam Narrative: GENERAL: in no distress, not toxic not dyspneic HEAD: Normocephalic. EYES: Pupils equal round ENT: Mucous membranes moist. NECK: Trachea midline. CARDIOVASCULAR: Regular rate and rhythm RESPIRATORY: Patient is speaking full sentences comfortably however diminished lung sounds in the base of the right lung. GASTROINTESTINAL: Abdomen soft, non-tender EXTREMITIES: No gross deformities. Extensive bilateral calf foot and ankle edema 3+. Otherwise foot bilaterally warm soft pink brisk cap refills light touch intact to foot and toes. No palpable cords in the calves. Negative Maldonado test negative Homans test BACK: No flank tenderness. NEURO: AOx4. Clear speech SKIN: Warm and dry PSYCH: Not anxious, is cooperative Initial Vital Signs Initial Vital Signs: Vital Signs Temperature 97.4 F L 03/24/25 11:17 Pulse Rate 128 H 03/24/25 11:17 Respiratory Rate 20 03/24/25 11:17 Blood Pressure 128/87 03/24/25 11:17 Pulse Oximetry 97 03/24/25 11:17 Oxygen Delivery Method Room Air 03/24/25 11:17 Course Orders Ordered: Apixaban (Apixaban 5 Mg Tablet) 5 mg PO BID [facility] Last Admin: 03/25/25 08:27 Dose: 5 mg Documented By: Admin: 03/24/25 20:42 Dose: 5 mg Documented By: AMBER Aspirin (Aspirin Ec 81 Mg Tablet) 81 mg PO DAILY [facility] Last Admin: 03/25/25 08:27 Dose: 81 mg Documented By: Atorvastatin Calcium (Atorvastatin 20 Mg Tablet) 10 mg PO BEDTIME [facility] Last Admin: 03/24/25 20:42 Dose: 10 mg Documented By: AMBER Diltiazem HCl (Diltiazem Cd 180 Mg Cap) 180 mg PO DAILY [facility] Last Admin: 03/25/25 08:27 Dose: 180 mg Documented By: Admin: 03/24/25 18:33 Dose: 180 mg Documented By: WES Finasteride (Finasteride 5 Mg Tablet) 5 mg PO BEDTIME [facility] Last Admin: 03/24/25 20:42 Dose: 5 mg Documented By: AMBER Furosemide (Furosemide 40 Mg/4 Ml Vial) 40 mg IV DAILY [facility] Last Admin: 03/25/25 08:27 Dose: 40 mg Documented By: Cefazolin Sodium/Dextrose (Ancef) 100 mls @ 200 mls/hr IV Q8H [facility] Last Infusion: 03/25/25 11:27 Dose: Infused Documented By: Admin: 03/25/25 10:57 Dose: 200 mls/hr Documented By: Infusion: 03/25/25 04:00 Dose: Infused Documented By: Admin: 03/25/25 02:41 Dose: 200 mls/hr Documented By: Infusion: 03/24/25 20:00 Dose: Infused Documented By: Admin: 03/24/25 18:39 Dose: 200 mls/hr Documented By: WES Metoprolol Succinate (Metoprolol Er 25 Mg Tablet) 25 mg PO BEDTIME [facility] Last Admin: 03/24/25 20:41 Dose: 25 mg Documented By: AMBER Metoprolol Tartrate (Metoprolol Tartrate 5 Mg/5 Ml Inj) 5 mg IV Q2HR PRN PRN Reason: Heart Rate- High 120 Naloxone HCl (Naloxone 0.4 Mg/Ml Vial) 0.2 mg IV Q2MIN PRN PRN Reason: Opiate Reversal Sodium Chloride (Sodium Chloride 0.9% Flush) 10 ml IV BID [facility] Last Admin: 03/25/25 08:28 Dose: 10 ml Documented By: Sodium Chloride (Sodium Chloride 0.9% Flush) 10 ml IV PRN PRN PRN Reason: Flush Discontinued Medications Apixaban (Apixaban 5 Mg Tablet) 5 mg PO NOW ONE Stop: 03/24/25 14:09 Last Admin: 03/24/25 14:16 Dose: 5 mg Documented By: CHRIS Enoxaparin Sodium (Enoxaparin 40 Mg/0.4 Ml Syringe) 40 mg SUBCUT DAILY [facility] Furosemide (Furosemide 40 Mg/4 Ml Vial) 20 mg IV NOW ONE Stop: 03/24/25 14:10 Last Admin: 03/24/25 14:15 Dose: 20 mg Documented By: CHRIS Metoprolol Tartrate (Metoprolol Ir 25 Mg Tablet) 50 mg PO NOW ONE Stop: 03/24/25 14:09 Last Admin: 03/24/25 14:15 Dose: 50 mg Documented By: CHRIS Vital Signs Vital signs: Vital Signs - 8 hr 03/24/25 11:17 03/24/25 12:02 03/24/25 12:30 Temperature 97.4 F L Pulse Rate 128 H 114 H 75 Respiratory Rate 20 Blood Pressure 128/87 Pulse Oximetry 97 96 92 Oxygen Delivery Method Room Air 03/24/25 12:31 03/24/25 12:31 03/24/25 13:00 Temperature Pulse Rate 75 153 H Respiratory Rate 28 H Blood Pressure 132/86 Pulse Oximetry 93 94 Oxygen Delivery Method 03/24/25 13:00 03/24/25 13:15 03/24/25 13:15 Temperature Pulse Rate 143 H Respiratory Rate 30 H Blood Pressure 124/94 H 134/93 H Pulse Oximetry 94 Oxygen Delivery Method 03/24/25 13:30 03/24/25 13:30 Temperature Pulse Rate 142 H Respiratory Rate 20 Blood Pressure 122/91 H Pulse Oximetry 94 Oxygen Delivery Method Room Air MDM - SOB/Dyspnea Lab Data 03/24/25 12:15 03/24/25 12:15 Labs: Lab Results 03/24/25 03/24/25 Range/Units 12:15 12:30 WBC 8.4 (4.5-11.0) X10^3/uL RBC 4.39 L (4.5-5.9) X10^6/uL Hgb 14.5 (13.5-17.5) g/dL Hct 42.8 (41-53) % MCV 97.6 (80-100) fL MCH 32.9 (26-34) PG MCHC 33.8 (30-36) % RDW 14.7 (11.6-14.8) % Plt Count 157 (150-400) X10^3/uL Neut % (Auto) 78.3 H (50-75) % Lymph % (Auto) 9.4 L (25-40) % [place] % (Auto) 9.9 (3-14) % Eos % (Auto) 1.5 L (2-4) % Baso % (Auto) 0.9 (0-2) % Neut # (Auto) 6600 (1225-5676) /uL Lymph # (Auto) 800 L (7670-9288) /uL [place] # (Auto) 800 (0-900) /uL Eos # (Auto) 100 (0-450) /uL Baso # (Auto) 100 (0-100) /uL PT 13.6 H (9.4-12.5) SECONDS INR 1.2 (0.9-1.3) Sodium 137 (137-145) mmol/L Potassium 4.4 (3.4-5.1) mmol/L Chloride 106 (98-107) mmol/L Carbon Dioxide 20 L (22-32) mmol/L BUN 20 (9-20) mg/dL Creatinine 1.23 (0.66-1.25) mg/dL Estimated GFR 56 L (>60) mL/min BUN/Creatinine Ratio 16.3 (6-22) Glucose 99 (70-99) mg/dL Lactate 1.5 (0.7-2.1) mmol/L Calcium 9.1 (8.4-10.2) mg/dL Total Bilirubin 1.2 (0.2-1.3) mg/dL AST 21 (17-59) IU/L ALT 15 (<50) IU/L Alkaline Phosphatase 70 (38-126) U/L Troponin I 0.014 (0.01-0.034) ng/mL NT-Pro-B Natriuret Pep 48483 H (<450) pg/mL Total Protein 6.8 (6.3-8.2) g/dL Albumin 3.9 (3.5-5.0) g/dL Globulin 2.9 (1.7-4.1) g/dL Albumin/Globulin Ratio 1.3 (1.0-2.8) Procalcitonin 0.059 (<0.5) ng/mL TSH 3.68 (0.47-4.68) uIU/mL Chlamy pneumoniae PCR Not detected (Not Detect) Adenovirus (PCR) Not detected (Not Detect) B. pertussis DNA (PCR) Not detected (Not Detect) B.parapertussis DNA PCR Not detected (Not Detecte) Coronavirus OC43 (PCR) Not detected (Not Detect) Coronavirus HKU1 (PCR) Not detected (Not Detect) Coronavirus 229E (PCR) Not detected (Not Detect) SARS-CoV-2 (PCR) Not detected (Not Detecte) Coronavirus NL63 (PCR) Not detected (Not Detect) Human Metapneumovir PCR Not detected (Not Detect) Influenza Type A (PCR) Not detected (Not Detect) Influenza Type B (PCR) Not detected (Not Detect) M. pneumoniae (PCR) Not detected (Not Detect) Parainfluenza 1 (PCR) Not detected (Not Detect) Parainfluenza 2 (PCR) Not detected (Not Detect) Parainfluenza 3 (PCR) Not detected (Not Detect) Parainfluenza 4 (PCR) Not detected (Not Detect) RSV (PCR) Not detected (Not Detect) Entero/Rhino (PCR) Not detected (Not Detect) Imaging Data US - DVT: Radiologist's Impression: [address] [address] Ultrasound Report Signed Patient: Jesus Birch MR#: [id number] : 1935 Acct:[id number] Age/Sex: 89 / M Date of Service: 03/24/25 Loc: ED Accession Number: [id number] Procedure: US periph venous low extrem bi Ordering Provider: Tyree Linder MD PROCEDURE: US PERIP VENOUS LOW EXTREM BI INDICATIONS: Leg swelling TECHNIQUE: Real-time imaging, as well as color and pulse Doppler interrogation, were performed of the deep veins of both legs from the inguinal ligament to the popliteal fossa, with documentation of the visualized calf veins. COMPARISON: [facility], CT, CT ANGIO CHEST PE PROTOCOL, 03/24/2025, 13:12. [facility], CR, XR CHEST 1V, 03/24/2025, 11:24. FINDINGS: Right: The common femoral, femoral, popliteal, and the visualized calf veins are normally compressible, and free of intraluminal thrombus. Color and pulse Doppler demonstrate normal phasic intravascular flow. There is normal augmentation response to distal compression maneuver. Left: The common femoral, femoral, popliteal, and the visualized calf veins are normally compressible, and free of intraluminal thrombus. Color and pulse Doppler demonstrate normal phasic intravascular flow. There is normal augmentation response to distal compression maneuver. The is seen on both sides when the distal thigh through the calves, which limits evaluation of the distal femoral veins. IMPRESSION: No findings of deep venous thrombosis in either lower extremity. Study limited by lower extremity edema. Dictated by: Servando Anderson M.D. on 03/24/2025 at 12:36 Approved by: Servando Anderson M.D. on 03/24/2025 at 12:37 Chest x-ray: Radiologist's Impression: [address] [address] XRay Report Signed Patient: Jesus Birch MR#: [id number] : 1935 Acct:[id number] Age/Sex: 89 / M Date of Service: 03/24/25 Loc: ED Accession Number: [id number] Procedure: XR chest 1V Ordering Provider: Tyree Linder MD PROCEDURE: XR CHEST 1V INDICATIONS: Shortness of breath TECHNIQUE: One view of the chest was acquired. COMPARISON: [facility], XR CHEST 1V, 07/24/2023, 11:33. FINDINGS: Surgical changes and devices: None. Lungs and pleura: Lungs are clear on the left but at the right lower lobe new pneumonia has developed and there is possibly a subpulmonic small pleural effusion on the right. No or pneumothorax. Mediastinum: Mediastinal contours appear normal. Heart size is normal. Bones and chest wall: No suspicious bony lesions. Overlying soft tissues appear unremarkable. IMPRESSION: New pneumonia right lung base with likelihood of associated small subpulmonic right pleural effusion. Dictated by: Dominic Dave M.D. on 03/24/2025 at 12:08 Approved by: Dominic Dave M.D. on 03/24/2025 at 12:09 CT scan - chest: Radiologist's Impression: [place] [address] CT Scan Report Signed Patient: Jesus Birch MR#: [id number] : 1935 Acct:[id number] Age/Sex: 89 / M Date of Service: 03/24/25 Loc: ED Accession Number: [id number] Procedure: CT angio chest PE protocol Ordering Provider: Tyree Linder MD PROCEDURE: CT ANGIO CHEST PE PROTOCOL INDICATIONS: Dyspnea TECHNIQUE: After the administration of intravenous contrast, 2 mm thick sections acquired from the pulmonary apices to the posterior costophrenic angles. 3-dimensional maximum intensity projection (MIP) coronal and sagittal reformats were then acquired through the thorax. For radiation dose reduction, the following was used: automated exposure control, adjustment of mA and/or kV according to patient size. COMPARISON: [facility], US PERIPH VENOUS LOW EXTREM BI, 03/24/2025, 12:41. [facility], XR CHEST 1V, 03/24/2025, 11:24. FINDINGS: Image quality: This examination is limited by involuntary motion artifact. Pulmonary arteries: Pulmonary arteries are normal in size, and demonstrate no intraluminal filling defects to suggest central pulmonary embolism. Lower Neck: No enlarged lymph nodes. Thyroid: No thyroid nodules which require sonographic follow up, per consensus guidelines. Axillae: No enlarged lymph nodes. Chest Wall: Unremarkable. Bones: Age-appropriate bony degenerative changes are seen. Accentuated thoracic kyphosis is seen. Lungs and Pleura: There is a small to moderate right-sided pleural effusion. There is a trace left-sided pleural effusion. Atelectasis is seen at both lung bases. Mild interstitial prominence can be seen on both sides. No pneumothorax is seen. Heart: Heart size is mildly to moderately enlarged. There is a moderate pericardial effusion. Moderate to severe coronary calcification is seen. Thoracic Vessels: No aortic aneurysm. Mediastinum and Angelina: No enlarged lymph nodes. Esophagus: No wall thickening. No hiatal hernia. Upper Abdomen: Mild reflux of contrast can be seen into the inferior vena cava and into the hepatic veins. Visualized upper abdomen solid organs and bowel loops appear normal. IMPRESSION: No pulmonary embolus. Bilateral pleural effusions are seen, with overlying atelectasis, right worse than left. There is [id number] cardiomegaly. Interstitial prominence is also seen. There is also mild reflux of contrast into the inferior vena cava and into the hepatic veins. This constellation of findings is commonly seen in CHF. A moderate pericardial effusion can be seen. Additional findings: Moderate to severe coronary artery calcification Dictated by: Servando Anderson M.D. on 03/24/2025 at 12:41 Approved by: Servando Anderson M.D. on 03/24/2025 at 12:44 [facility] Narrative Medical decision making narrative: Patient brought in by private vehicle by family from [facility]. Patient has had 1 week of shortness of breath and bilateral leg calf ankle foot swelling. Denies any chest pain. No prior history of blood clots in legs or lungs or congestive heart failure. Patient does have history of pneumonia in the past. Patient denies any sick contacts. Patient states he gets very short of breath with short amount of walking he does at home. Patient states is supposed to use a walker but sometimes forgets to use it. MDM After history and exam, CBC CMP BNP troponin EKG chest x-ray Doppler both legs blood culture procalcitonin lactic acid respiratory panel Differential considered: Includes but not limited to pneumonia CHF pulmonary embolism fluid overload Medical records reviewed: No recent visit for this complaint Lab Test results independently reviewed as above. Pertinent findings: WBC 8.4 hemoglobin 14.5 Independently reviewed EKG atrial fibrillation rate 132 with RVR Imaging studies independently reviewed: Chest x-ray infiltrate pneumonia right base Consultations: 2:00 p.m.. Spoke with Cardiology dr quiroz, start beta-juan start Lasix order echocardiogram admit to hospitalist 2:22 p.m.. Spoke with hospitalist, Dr. Solis, he will admit patient Re-evaluations: 2:15 p.m.. Updated patient need for admission for AFib and diuresis for CHF and echocardiogram. He agrees. Discussion: Appropriate for admission for atrial fibrillation rate control as well as diuresis cardiology service was contacted Diagnosis: CHF atrial fibrillation Discharge Plan Departure Patient Disposition: Admitted as Observation Clinical Impression: Congestive heart failure Qualifiers: Heart failure type: unspecified Heart failure chronicity: unspecified Qualified Code(s): I50.9 - Heart failure, unspecified Atrial fibrillation Qualifiers: Atrial fibrillation type: unspecified Qualified Code(s): I48.91 - Unspecified atrial fibrillation Admit Date/Time: 03/24/25 14:23 Admit Provider: Tiana Solis
[2025-03-24 12:29] LABS: INR 1.2 (0.9-1.3); Prothrombin Time 13.6 SECONDS (9.4-12.5)
[2025-03-24 12:34] LABS: Lactate (Lactic Acid) 1.5 mmol/L (0.7-2.1)
[2025-03-24 12:35] LABS: Alanine Aminotransferase 15 IU/L (<50); Albumin 3.9 g/dL (3.5-5.0); Albumin Globulin Ratio 1.3 (1.0-2.8); Alkaline Phosphatase 70 U/L (38-126); Blood Urea Nitrogen 20 mg/dL (9-20); Calcium 9.1 mg/dL (8.4-10.2); Carbon Dioxide 20 mmol/L (22-32); Chloride 106 mmol/L (98-107); Estimated Glomerular Filt Rate 56 mL/min (>60); Globulin 2.9 g/dL (1.7-4.1); Glucose 99 mg/dL (70-99); HEMOLYSIS 16 (0-50); Potassium 4.4 mmol/L (3.4-5.1); Sodium 137 mmol/L (137-145); Total Protein 6.8 g/dL (6.3-8.2)
[2025-03-24 12:48] LABS: NT-proBNP (BNP-Adult 18+) 11200 pg/mL (<450); Troponin I 0.014 ng/mL (0.01-0.034)
[2025-03-24 13:25] LABS: Procalcitonin 0.059 ng/mL (<0.5)
[2025-03-24 13:32] LABS: Coronavirus NL 63 Not Detected (Not Detect); SARS- CoV-2 Not Detected (Not Detecte)
--- NOTE | 2025-03-24 13:43 | EKG_ITS ---
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
--- NOTE | 2025-03-24 14:07 | DI.ECHO.S_ITS ---
[place] : : [address] : [place] : : [address] : : Phone: [phone] Echocardiogram Report + + :Name: LEOLA RAO Study Date: 03/25/2025 Height: 73 in : :[facility] ReadingLocation: Weight: 230 lb: : Gender: Male BSA: 2.3 m2 : :: 1935 Age: 89 yrs BP: 96/61 mmHg: :Reason For Study: CHF, DYSPNEA : :Ordering Physician: LEIGH, : :KIMBERLY Performed By: Bj Quiroga : :Referring: KIMBERLY ABRAHAM : + + Interpretation Summary The patient was in atrial fibrillation with heart rates between 90-100 bpm during the exam. Left ventricular ejection fraction is estimated to be 25 +/- 5%. The right ventricle is normal in size and function. The left atrium is severely dilated. The right atrium is moderately dilated. There is moderate mitral regurgitation. There is severe aortic stenosis. The inferior vena cava was not visualized. There is a trivial to small pericardial effusion noted. Procedure: A two-dimensional transthoracic echocardiogram with color flow and Doppler was performed. The study quality was technically good. There is no prior echocardiogram noted for this patient. The patient was in atrial fibrillation with heart rates between 90-100 bpm during the exam. Left Ventricle: The left ventricle is normal in size. Left ventricular wall thickness is mildly increased. There is no ventricular septal defect visualized. Left ventricular ejection fraction is estimated to be 25 +/- 5%. Diastolic function could not be accurately assessed due to atrial fibrillation. Right Ventricle: The right ventricle is normal in size and function. Atria: The left atrium is severely dilated. The right atrium is moderately dilated. The interatrial septum is not well visualized. Mitral Valve: The mitral valve leaflets are slightly calcified. There is mild mitral annular calcification. There is moderate mitral regurgitation. Aortic Valve: There is moderate aortic valve sclerosis. The aortic valve is moderately calcified. There is severe aortic stenosis. The peak aortic velocity is 3.65 m/sec. The aortic valve mean gradient is 35.8 mmHg. The calculated aortic valve area is 0.4 cm2. There is trace aortic regurgitation. Tricuspid Valve: The tricuspid valve leaflets are thin and pliable. There is trace tricuspid regurgitation. Pulmonary artery pressures cannot be estimated because of the lack of a measurable TR jet velocity but the IVC suggests a CVP of around IVC not visualized mmHg. Pulmonic Valve: The pulmonic valve leaflets are thin and pliable; valve motion is normal. There is trace pulmonic regurgitation. Great Vessels: The aortic root is mildly dilated. The ascending aorta could not be visualized. The aortic arch could not be visualized. The pulmonary artery is normal size. The inferior vena cava was not visualized. Pericardium/ Pleura There is a trivial to small pericardial effusion noted. MMode/2D Measurements & Calculations LVIDd: 4.9 cm LVOT diam: 2.1 cm LVIDs: 4.2 cm Ao root diam: 3.9 cm FS: 14.9 % EPSS: 1.2 cm IVSd: 1.2 cm LVPWd: 1.1 cm LV redman. diameter/BSA (cm/m^2): 2.2 LV sys. diameter/BSA (cm/m^2): 1.8 LA A2 area: 30.1 cm2 RA long axis: 6.2 cm LA A4 area: 28.5 cm2 RA area: 23.9 cm2 LA length (vol): 6.5 cm RA vol: 79.2 ml LA vol: 111.5 ml RA : 34.7 ml/m2 LA vol index: 48.8 ml/m2 RVD1 (basal): 3.9 cm RVD2 (mid): 3.0 cm TAPSE: 1.9 cm Doppler Measurements & Calculations Ao V2 max: 364.9 cm/sec LVOT Max Yuniel: 50.4 cm/sec Ao V2 mean: 289.5 cm/sec LV V1 max P.0 mmHg Ao max P.3 mmHg LV V1 VTI: 10.7 cm Ao mean P.8 mmHg JONAH(I,D): 0.41 cm2 Ao V2 VTI: 89.2 cm JONAH(V,D): 0.47 cm2 sev ratio: 0.12 JONAH indexed to BSA (cm^2/m^2): 0.18 MV E max yuniel: 78.8 cm/sec TR max yuniel: 275.7 cm/sec MV A max yuniel: 17.8 cm/sec TR max P.4 mmHg MV E/A: 4.4 PA V2 max: 53.2 cm/sec Med Peak E' Yuniel: 5.1 cm/sec PA V2 mean: 39.3 cm/sec E/E' med: 15.3 PA mean P.65 mmHg Lat Peak E' Yuniel: 6.9 cm/sec PA pr(Accel): 58.4 mmHg E/E' lat: 11.5 E/e' average: 13.4 MV dec time: 0.13 sec SV(LVOT): 36.8 ml Reading Physician:09:04 AM
[2025-03-24] MEDS: FUROSEMIDE 40 MG/4 ML VIAL 20 MG IV (14:15)
[2025-03-24] MEDS: METOPROLOL IR 25 MG TABLET 50 MG PO (14:15)
[2025-03-24] MEDS: APIXABAN 5 MG TABLET PO ×2 (14:16→20:42)
--- NOTE | 2025-03-24 14:33 | PM.HP.1 ---
History of Present Illness History of Present Illness Date Patient Seen: 03/24/25 Time Patient Seen: 18:09 Chief complaint: SOB, swelling in both legs x 2 weeks Narrative: This is an 89-year-old male with a history of BPH, hypertension, hyperlipidemia and cognitive dysfunction who presents with new CHF and Afib RVR. On initial presentation he describes 1 week of shortness of breath and leg edema. He denied chest pain and palpitations. He was in sinus rhythm. He was sent for a CT of his chest and while in CT went into atrial fibrillation with a response rate in the 140s. This was treated with IV metoprolol bringing his heart rate down below 110. He appears to have significant vascular insufficiency redness versus bilateral cellulitis of his lower legs. He has significant cognitive dysfunction and seems to confabulate or have misunderstanding of questions quite easily. He does not think that he has ever had any heart condition before. He has been started on diltiazem and apixaban. The EKG shows:Atrial fibrillation with rapid ventricular response with premature ventricular or aberrantly conducted complexes Nonspecific ST and T wave abnormality Old anteroseptal SD. [place] 0[place]014 [place] [address]. Assessment and plan: Congestive heart failure and atrial fibrillation, present on admission, active. -these appear to be new conditions based on the available information which is quite limited. -check echocardiogram -follow troponin -use metoprolol 5 mg IV q.2 hours as needed and begin on diltiazem 180 mg daily. -the ED physician spoke with corporate statistical financial analyst Dr. Gayle who recommended to proceed with anticoagulation and beta-juan IV treatment. -check TSH -CT shows moderate pericardial effusion and bilateral pleural effusions. Proceeding with echocardiogram. -continue IV Lasix. Likely to need ARB and spironolactone. -apixaban Hypertension, present on admission. Chronic. -continue metoprolol succinate 25 mg HS and add diltiazem CD 180 mg daily. Hyperlipidemia, present on admission. Chronic. -continue rosuvastatin BPH, present on admission. Chronic. -continue finasteride Cognitive dysfunction, present on admission. Chronic. -OT evaluation for mental faculty screening, to establish current baseline. -consider repeat CT brain. DVT prevention with apixaban [facility] Medical History (Updated 03/24/25 @ 18:10 by Tiana Solis MD) Cognitive dysfunction HLD (hyperlipidemia) HTN (hypertension) BPH (benign prostatic hyperplasia) Social History household members: none Comment: His cognitive dysfunction limits his ability to participate in collecting information for past surgical history and family history. Meds Home Medications and Allergies Home Medications ?Medication ?Instructions ?Recorded ?Confirmed ?Type finasteride 5 mg tablet 5 mg PO BEDTIME 07/25/23 03/24/25 History metoprolol succinate 25 mg 25 mg PO BEDTIME 07/25/23 03/24/25 History tablet,extended release 24 hr rosuvastatin 5 mg tablet 5 mg PO BEDTIME 07/25/23 03/24/25 History aspirin 81 mg tablet,delayed 81 mg PO DAILY 09/07/24 03/24/25 History release Allergies Allergy/AdvReac Type Severity Reaction Status Date / Time No Known Drug Allergies Allergy Verified 03/24/25 11:17 Review of Systems Review of Systems Narrative: Alert and oriented x3 but misunderstands questions and comments quite easily. No apparent distress. Pupils are equally round and reactive to light and accommodation. Extraocular muscles are intact. Sclerae are pink and nonicteric. Throat looks normal. No JVD. No carotid bruits are heard. There is no thyromegaly. No lymph nodes are felt head, neck, supraclavicular area. Heart is irregularly irregular and tachycardic without murmur. Lungs are clear to auscultation bilaterally. Abdomen is soft, bowel sounds positive, nontender, no organomegaly. Extremities have 1+ pitting ankle edema on the ankles with variable areas of redness involving the shins on both sides. Inconclusive for cellulitis. Motor function is 4/5 throughout. There is no tremor. Cranial nerves 2-12 test intact. Reflexes are normal. Exam Vital Signs (past 8 hours): - 03/24/25 11:17 03/24/25 12:02 03/24/25 12:30 Temperature 97.4 F L Pulse Rate 128 H 114 H 75 Respiratory Rate 20 Blood Pressure 128/87 Pulse Oximetry 97 96 92 Oxygen Delivery Method Room Air 03/24/25 12:31 03/24/25 12:31 03/24/25 13:00 Temperature Pulse Rate 75 153 H Respiratory Rate 28 H Blood Pressure 132/86 Pulse Oximetry 93 94 Oxygen Delivery Method 03/24/25 13:00 03/24/25 13:15 03/24/25 13:15 Temperature Pulse Rate 143 H Respiratory Rate 30 H Blood Pressure 124/94 H 134/93 H Pulse Oximetry 94 Oxygen Delivery Method 03/24/25 13:30 03/24/25 13:30 Temperature Pulse Rate 142 H Respiratory Rate 20 Blood Pressure 122/91 H Pulse Oximetry 94 Oxygen Delivery Method Room Air Oxygen Delivery Method Room Air Objective Labs 03/24/25 12:15 03/24/25 12:15 Labs: Laboratory Results - last 24 hr 03/24/25 03/24/25 12:15 12:30 WBC 8.4 RBC 4.39 L Hgb 14.5 Hct 42.8 MCV 97.6 MCH 32.9 MCHC 33.8 RDW 14.7 Plt Count 157 Neut % (Auto) 78.3 H Lymph % (Auto) 9.4 L [place] % (Auto) 9.9 Eos % (Auto) 1.5 L Baso % (Auto) 0.9 Neut # (Auto) 6600 Lymph # (Auto) 800 L [place] # (Auto) 800 Eos # (Auto) 100 Baso # (Auto) 100 PT 13.6 H INR 1.2 Sodium 137 Potassium 4.4 Chloride 106 Carbon Dioxide 20 L BUN 20 Creatinine 1.23 Estimated GFR 56 L BUN/Creatinine Ratio 16.3 Glucose 99 Lactate 1.5 Calcium 9.1 Total Bilirubin 1.2 AST 21 ALT 15 Alkaline Phosphatase 70 Troponin I 0.014 NT-Pro-B Natriuret Pep 20130 H Total Protein 6.8 Albumin 3.9 Globulin 2.9 Albumin/Globulin Ratio 1.3 Procalcitonin 0.059 Chlamy pneumoniae PCR Not detected Adenovirus (PCR) Not detected B. pertussis DNA (PCR) Not detected B.parapertussis DNA PCR Not detected Coronavirus OC43 (PCR) Not detected Coronavirus HKU1 (PCR) Not detected Coronavirus 229E (PCR) Not detected SARS-CoV-2 (PCR) Not detected Coronavirus NL63 (PCR) Not detected Human Metapneumovir PCR Not detected Influenza Type A (PCR) Not detected Influenza Type B (PCR) Not detected M. pneumoniae (PCR) Not detected Parainfluenza 1 (PCR) Not detected Parainfluenza 2 (PCR) Not detected Parainfluenza 3 (PCR) Not detected Parainfluenza 4 (PCR) Not detected RSV (PCR) Not detected Entero/Rhino (PCR) Not detected Assessment & Plan Time-Based Coding :: [TOTAL MINUTES] spent with patient and on the chart (including review of chart, obtaining history, exam, reviewing outside data, placing orders, documenting exam and treatment plan, and counseling patient) on [DATE].
--- NOTE | 2025-03-24 17:34 | CM.DANOTE ---
ED BOTTLE FILLER DCP Assessment Note: Pt is a 89yo male, resident of [place], is admitted for pneumonia, CHF and Afib. Pt is a resident at [facility]. Pt's Primary Care Provider is not established (moved to the area just a year ago) and insurance is Medicare and Commercial Insurance. Reviewed chart and discussed with multidisciplinary team pt's medical status and initial discharge needs. Per ED provider, pt to be admitted for diuresis and echocardiogram in the morning. DCP met w/patient at bedside; introduced self and role. Patient was found in bed, alert and oriented, cooperative with assessment. Pt confirmed living situation and good support in son who lives in [place]. Pt expressed preference in discharge home, he states he is independent and active at baseline. Pt has no history of SNF Rehab or Home health. Plan: Anticipating dc home after echocardiogram on 03/25, pt coordinating with son if he can be available for discharge transport. CM team will follow closely for coordination of discharge plans. Monique Malcolm [facility] Discharge Planning/Care Management CM Discharge Assessment Start: 03/24/25 15:56 Freq: Status: Active Protocol: Document 03/24/25 17:30 MW (Rec: 03/24/25 17:34 MW [id number]) Discharge Planning Assessment Assigned Discharge SHENG Amaya Construction Plumber Provider None established Insurance Medicare DPOA/Assigned Shree Parson Designee Name Contact Information [phone] Advance Directives? Yes Advance Directives No on File History Provided By Family Member,Medical Record Has Patient been No admitted in last 30 days? Prior Living Assisted Living Arrangements Comment [facility] Household Members none Type of Drives own vehicle transporation used prior to admit Facility Name [facility] Admitted From: Willing to Return to Yes Facility? Independent with ADL Yes 's Is patient alert and Yes oriented? Discharge Plan Home Transportation Family vs facility van Arrangement Additional Comment r/o need and agreement for services upon discharge Review Status In Process Please Provide Date 03/24/25 Initial DC Assessment Was Performed Next Review Type Continued Stay Review
--- NOTE | 2025-03-24 18:38 | PC.NURSE ---
Received report from Deb MOSCOSO, pt transported by ED PCT, accepted care of pt. Pt self-transferred from WC to bed, pt amiable but slightly impulsive. RA. PIVs intact/flushing. Pt asked to go to bathroom, but denied need to void/have a BM. However, during assessment, this RN and PCT Oscar noted that pt had had BM already. Cleaned/changed pt. VS not WNL (see VS in EMR). Pt in Afib/RVR. Pt reports no dizziness or SOB. Provider notified MD Solis. Informed that pt should be ICU status; gave report to MANAGER PEDANIS Morgan.
--- NOTE | 2025-03-24 19:06 | PC.NURSE ---
REPORT RECEIVED FROM RONNIE RN AT [id number]. PT ALERT/ORIENTED IN BED. ROOM AIR WITH NO C/O PAIN OR S/S OF SOB AT THIS TIME, AFIB RVR 120S-130S. 3+ PITTING EDEMA IN BLE. PER PT, SWELLING HAS GONE DOWN SINCE ADMISSION. DR NAPIER ALREADY IN TO SEE PATIENT. PLAN TO TRY PO CARDIZEM FIRST PER MD AND THEN USE PRN METOPROLOL ORDERED.
[2025-03-24 19:31] LABS: Thyroid Stimulating Hormone 3.68 uIU/mL (0.47-4.68)
[2025-03-24] MEDS: METOPROLOL ER 25 MG TABLET PO (20:41)
[2025-03-24] MEDS: FINASTERIDE 5 MG TABLET PO (20:42)
[2025-03-24] MEDS: ATORVASTATIN 20 MG TABLET 10 MG PO (20:42)
[2025-03-25] VITALS (49 sets, daily range): BP systolic 88–114; BP diastolic 54–75; PULSE 73–110; RESP 15–40; TEMP 35.7–35.9; O2SAT 90–96
--- NOTE | 2025-03-25 06:19 | PC.NURSE ---
Heavy Mobile Equipment Operator Summary-Patient's A-fib has been controlled < 100 after HS PO metoprolol given. He is forgetful, does not always use call light or comply with care. He removes equipment, BP cuff and oximetry. Declined MRSA swab. Hearing aid found on floor, offered to place it in labeled container, but he chose to hold it in his hand while lying in bed, he is quite RUBY without it. Bed alarm on.
[2025-03-25 07:12] LABS: Troponin I 0.021 ng/mL (0.01-0.034)
--- NOTE | 2025-03-25 07:18 | P.PN_ITS ---
Subjective Subjective Date Patient Seen: 03/25/25 Interval history: This is an 89-year-old male with a history of BPH, hypertension, hyperlipidemia and cognitive dysfunction who presents with new CHF and Afib RVR. On initial presentation he describes 1 week of shortness of breath and leg edema. He denied chest pain and palpitations. He was in sinus rhythm. He was sent for a CT of his chest and while in CT went into atrial fibrillation with a response rate in the 140s. This was treated with IV metoprolol bringing his heart rate down below 110. He appears to have significant vascular insufficiency redness versus bilateral cellulitis of his lower legs. He has significant cognitive dysfunction and seems to confabulate or have misunderstanding of questions quite easily. He does not think that he has ever had any heart condition before. He has been started on diltiazem and apixaban. The EKG shows:Atrial fibrillation with rapid ventricular response with premature ventricular or aberrantly conducted complexes Nonspecific ST and T wave abnormality Old anteroseptal [place]. The trop[place] 0.014 [place] [address]. 03/24: He continues with bilateral lower extremity pink discoloration of the skin consistent with venous insufficiency versus bilateral cellulitis. The TSH is 3.68. The blood pressure is 96/61 with a heart rate of 98 and a sat of 90%. Cardiology will be consulted today. His echocardiogram is significantly abnormal with: Left ventricular ejection fraction is estimated to be 25 +/- 5%. The right ventricle is normal in size and function. The left atrium is severely dilated. The right atrium is moderately dilated. There is moderate mitral regurgitation. There is severe aortic stenosis. Exam: Alert and oriented x3. No apparent distress. Heart is irregularly irregular without murmur. Lungs are clear to auscultation bilaterally. Extremities have 2+ pitting ankle edema with distinct pattern redness of the lower calves. Assessment and plan: Congestive heart failure and atrial fibrillation, present on admission, active. -these appear to be new conditions based on the available information which is quite limited. -25% EF with severe aortic stenosis on echocardiogram. -Dr. William from cardiology is consulting and will recommendations today. -follow troponin -use metoprolol 5 mg IV q.2 hours as needed and currently on diltiazem 180 mg daily. -TSH normal -CT shows moderate pericardial effusion and bilateral pleural effusions. -continue IV Lasix. Likely to need ARB and spironolactone. -apixaban Hypertension, present on admission. Chronic. -continue metoprolol succinate 25 mg HS and added diltiazem CD 180 mg daily. Hyperlipidemia, present on admission. Chronic. -continue rosuvastatin BPH, present on admission. Chronic. -continue finasteride Cognitive dysfunction, present on admission. Chronic. -OT evaluation for mental faculty screening, to establish current baseline. -consider repeat CT brain. DVT prevention with apixaban Exam Vital Signs (past 8 hours): - 03/24/25 23:30 03/24/25 23:57 03/25/25 00:00 Temperature 97.9 F Pulse Rate 95 H 89 Respiratory Rate 20 21 Blood Pressure Pulse Oximetry Oxygen Delivery Method 03/25/25 00:30 03/25/25 01:00 03/25/25 01:01 Temperature Pulse Rate 88 89 Respiratory Rate 18 18 Blood Pressure 109/57 L Pulse Oximetry Oxygen Delivery Method 03/25/25 01:01 03/25/25 01:15 03/25/25 01:30 Temperature Pulse Rate 87 85 Respiratory Rate 19 18 Blood Pressure Pulse Oximetry Oxygen Delivery Method Room Air 03/25/25 02:00 03/25/25 02:30 03/25/25 02:49 Temperature Pulse Rate 82 87 Respiratory Rate 21 21 Blood Pressure 92/62 Pulse Oximetry Oxygen Delivery Method 03/25/25 02:49 03/25/25 03:00 03/25/25 03:00 Temperature Pulse Rate 91 H 85 Respiratory Rate 22 19 Blood Pressure 103/75 Pulse Oximetry Oxygen Delivery Method 03/25/25 03:30 03/25/25 04:00 03/25/25 04:00 Temperature Pulse Rate 90 89 Respiratory Rate 20 19 Blood Pressure 114/68 Pulse Oximetry Oxygen Delivery Method 03/25/25 04:30 03/25/25 05:00 03/25/25 05:00 Temperature Pulse Rate 91 H 93 H Respiratory Rate 18 18 Blood Pressure 111/71 Pulse Oximetry Oxygen Delivery Method 03/25/25 05:30 03/25/25 06:00 03/25/25 06:30 Temperature Pulse Rate 92 H 96 H 105 H Respiratory Rate 18 40 H 21 Blood Pressure Pulse Oximetry 92 Oxygen Delivery Method 03/25/25 07:00 03/25/25 07:00 Temperature Pulse Rate 98 H Respiratory Rate 19 Blood Pressure 96/61 Pulse Oximetry 90 L Oxygen Delivery Method Oxygen Delivery Method Room Air Objective Labs 03/24/25 12:15 03/24/25 12:15 Labs: Laboratory Results - last 24 hr 03/24/25 03/24/25 12:15 12:30 WBC 8.4 RBC 4.39 L Hgb 14.5 Hct 42.8 MCV 97.6 MCH 32.9 MCHC 33.8 RDW 14.7 Plt Count 157 Neut % (Auto) 78.3 H Lymph % (Auto) 9.4 L [place] % (Auto) 9.9 Eos % (Auto) 1.5 L Baso % (Auto) 0.9 Neut # (Auto) 6600 Lymph # (Auto) 800 L [place] # (Auto) 800 Eos # (Auto) 100 Baso # (Auto) 100 PT 13.6 H INR 1.2 Sodium 137 Potassium 4.4 Chloride 106 Carbon Dioxide 20 L BUN 20 Creatinine 1.23 Estimated GFR 56 L BUN/Creatinine Ratio 16.3 Glucose 99 Lactate 1.5 Calcium 9.1 Total Bilirubin 1.2 AST 21 ALT 15 Alkaline Phosphatase 70 Troponin I 0.014 NT-Pro-B Natriuret Pep 37748 H Total Protein 6.8 Albumin 3.9 Globulin 2.9 Albumin/Globulin Ratio 1.3 Procalcitonin 0.059 TSH 3.68 Chlamy pneumoniae PCR Not detected Adenovirus (PCR) Not detected B. pertussis DNA (PCR) Not detected B.parapertussis DNA PCR Not detected Coronavirus OC43 (PCR) Not detected Coronavirus HKU1 (PCR) Not detected Coronavirus 229E (PCR) Not detected SARS-CoV-2 (PCR) Not detected Coronavirus NL63 (PCR) Not detected Human Metapneumovir PCR Not detected Influenza Type A (PCR) Not detected Influenza Type B (PCR) Not detected M. 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 Smoking Status: Never smoker alcohol intake: current Type(s) of exercise: none Assessment & Plan Time-Based Coding :: [TOTAL MINUTES] spent with patient and on the chart (including review of chart, obtaining history, exam, reviewing outside data, placing orders, documenting exam and treatment plan, and counseling patient) on [DATE]. Quality VTE Deep Vein Thrombosis/Pulmonary Embolism Present on Admission: No
[2025-03-25] MEDS: ASPIRIN EC 81 MG TABLET PO (08:27)
[2025-03-25] MEDS: APIXABAN 5 MG TABLET PO ×2 (08:27→21:15)
[2025-03-25] MEDS: FUROSEMIDE 40 MG/4 ML VIAL IV (08:27)
[2025-03-25] MEDS: SODIUM CHLORIDE 0.9% FLUSH 10 ML IV ×2 (08:28→21:15)
--- NOTE | 2025-03-25 10:05 | OT.IP.EVAL ---
Past Medical History (Last Updated 03/24/25 @ 18:10 by Tiana Solis MD) BPH (benign prostatic hyperplasia) Cognitive dysfunction HLD (hyperlipidemia) HTN (hypertension) Occupational Therapy Inpatient Evaluation/Re-Eval M1 PT/OT-IP Prior Functional Status Start: 03/25/25 10:11 Freq: NEEDED Status: Active Protocol: Document 03/25/25 10:11 [facility] (Rec: 03/25/25 10:35 [facility] Desktop) Medical Review Prior Functional Status Communication I Mobility and Gait Pt states does not use a device but has been considering getting a 4ww Activities of Daily Pt states able to do with increased time for ADL and Living and IADL's IADL needs. Pt states drives. Social History Household Members none Living Arrangements Assisted Living Home Environment Walk in Shower,Tub/Shower Home Equipment Hand Held Shower,Grab Bars Near Toilet,Grab Bars In Shower Additional Social Pt lives in [facility] in which meals are provided. History Comment M2 OT-IP Current Condition Start: 03/25/25 10:11 Freq: Status: Active Protocol: Document 03/25/25 10:11 [facility] (Rec: 03/25/25 10:35 [facility] Desktop) Occupational Therapy Current Condition Current Condition Evaluation Date 03/25/25 Treatment Diagnosis CHF, A-fib RVR, PNA Diagnosis Onset Date 03/24/25 M3 OT- IP Subjective and Pain Start: 03/25/25 10:11 Freq: Status: Active Protocol: Document 03/25/25 10:11 [facility] (Rec: 03/25/25 10:35 [facility] Desktop) OT- Subjective Occupational Therapy Visit Type Type Initial Evaluation Visit Start Time 09:35 Visit Stop Time 10:10 Occupational Therapy Visit Comments Patient Comments Pt refusing cognitive assessment but agreed to get up to use the urinal and try use of 4ww. Patient/Caregiver TO go home. Goals OT Pain Assessment Pain When Pain Assessed During Mobility Pain Present Pain Present Pain Reported Location Left Shoulder Pain Behaviors Facial Grimacing,Holding Area M4 OT- IP ADL's Start: 03/25/25 10:11 Freq: Status: Active Protocol: Document 03/25/25 10:11 [facility] (Rec: 03/25/25 10:35 [facility] Desktop) OT [id number] Comments OT Self-Feeding Not at meal time. Comments OT ADL-Grooming Comments OT Grooming Comments Not performed. OT ADL-Oral Care Comments Oral Care Comments Not performed. OT ADL-Dressing Comments OT Dressing Comments Pt refusing. Able to show pt LB dressing equipment that can be helpful for pt to use. OT ADL-Toileting Comments OT Toileting Pt able to stand with FWW and able to use the urinal Comments with SBA. OT ADL-Bathing Comments OT Bathing Comments Pt states just sponges off. Pt states has been meaning to get a shower chair but has not gotten around to it. M5 OT- IP IADL's Start: 03/25/25 10:11 Freq: Status: Active Protocol: Document 03/25/25 10:11 [facility] (Rec: 03/25/25 10:35 [facility] Desktop) OT-Instrumental Activities of Daily Living Medication Management Medication Pt states uses pill organizer. Pt would benefit from Management Comments supervision. Suggested pt to set an alarm to recall taking his meds if needed. Money Management Money Management TO continue to assess, as pt refusing to do any Comments cognitive assessments at this time. Meal Preparation Meal Preparation Pt gets meals at his facility. Comments Driving Driving Concerns Identified Regarding Safety M6 OT- IP Functional Cognition Start: 03/25/25 10:11 Freq: Status: Active Protocol: Document 03/25/25 10:11 [facility] (Rec: 03/25/25 10:35 [facility] Desktop) Cognitive Factors Limiting Selfcare Function Cognitive Ability Level of Alertness Alert Attention Span Capable of Focused Attention,Capable of Sustained Ability Attention Ability to Follow Able to Follow One Step Commands Commands Memory Description Short Term Impaired Safety Awareness Underestimates Need for Assistance Cognitive Comments Cognitive Assessment Pt refusing to do any cognitive assessment but admits Comments is a little more forgetful now. Pt was in the hospital 06/2023 and here for COVID+, confusion, and metabolic encephalopathy and suggested to get a fww/4ww , but has not yet. Pt also states has been meaning to get a shower chair but has not found a appropriate one and therefore sponge off. OT- Vision and Hearing OT- Vision Assessment Visual Acuity Glasses For Reading Visual Attentiveness WFL Occular Pursuits WFL Visual Marroquin WFL M7 OT- IP Mobility and Balance Start: 03/25/25 10:11 Freq: Status: Active Protocol: Document 03/25/25 10:11 [facility] (Rec: 03/25/25 10:35 [facility] Desktop) OT-Transfer Assessment Sit to and From Stand Sit to and from Standby Assistance Stand Transfers Transfer Ability Standby Assistance,Contact Guard Assistance Technique Transfer Destination Chair Transfer Technique Stand Step Pivot Devices Transfer Assistive Front Wheeled Walker,4 Wheeled Walker Devices Comments Mobility Comments Pt a bit unsteady on his feet and needing from CGA to close SBA with fww or 4ww. Pt admit at times when getting up very quick feels shaky and needing to grab a hold on something. Pt states has fallen 2 weeks ago and 1-1/2 years ago due to getting up to quick and at times his legs just give way per pt. Pt will benefit from PT eval. Pt states when up on his feet and looking to the right at times get woozy as well. BP siting 95/61 and after standing to use the urinal 94/54. OT- Balance Assessment Sitting Balance and Reactions Static Sitting Good Balance Ability Dynamic Sitting Good Balance Ability Standing Balance and Reactions Static Standing Fair Balance Ability Dynamic Standing Fair Balance Ability M8 OT- IP Objective Assessments Start: 03/25/25 10:11 Freq: Status: Active Protocol: Document 03/25/25 10:11 [facility] (Rec: 03/25/25 10:35 [facility] Desktop) OT Gross Range of Motion Upper Extremity Range of Motion Assessment Left Impaired OT Strength Upper Extremity Strength Assessment Left Impaired Shoulder 3- Elbow 4 Forearm 4 Wrist 4+ Hand 4+ Comments Strength Comments RUE 3+/5 to 4/5 M9 OT- IP Assessment and Plan Start: 03/25/25 10:11 Freq: Status: Active Protocol: Document 03/25/25 10:11 [facility] (Rec: 03/25/25 10:35 [facility] Desktop) OT Summary Assessment and Plan Potential Rehabilitation Good Potential Analytic Complexity Moderate at Evaluation Summary OT Impairments Range of Motion,Strength,Balance,Functional Mobility, Dressing,Toileting,Bathing Progress Towards Slow Progress due to Medical Issues Goals Assessment Summary Pt MOD complexity and main barriers are decreased safety awareness, decreased dynamic balance and activity tolerance and per pt has fallen 2 weeks ago. Pt refusing to do cognitive assessment. Pt states has not picked up a 4ww/fww that was suggested to him on pt 's last admission 06/2023. Since pt's last admission, his LUE unable to raise up against gravity- per pt states fell into a wall and not able to use his LUE for overhead needs now. Pt will benefit from PT eval as pt is a bit unsteady on his feet and if going home will benefit from home health. Goals Grooming Goal Independent Dressing Goal Independent Toileting Goal Independent Bathing Goal Independent Toilet Transfer Goal Independent Shower Transfer Goal Independent Days to Meet Goals 10 Frequency of Treatment Other frequency 5x/week Treatment Plan OT Treatment Plan ADL Training,Functional Mobility,Patient/Family Education,Discharge Planning Discharge Recommendations OT Discharge Home with Assistance,Home Health Recommendations Home Equipment Needs shower chair, 4ww/fww Transportation Needs Private Vehicle at Discharge
--- NOTE | 2025-03-25 12:27 | PM.CN ---
History of Present Illness Consult details Date Patient Seen: 03/25/25 Time Patient Seen: 12:59 Chief complaint: SOB, swelling in both legs x 2 weeks Requesting provider: Tiana Solis Narrative: 89-year-old male with known history of hypertension, benign prostatic hypertrophy, hyperlipidemia admitted to the hospital with symptoms of progressive shortness of breath, lower extremity swelling for last 4 weeks. Patient reported impaired functional tolerance with symptoms of exertional shortness of breath with minimal activity like going to the bathroom. He stated that he was using 2 pillows during sleep. He had episodes of getting up in the night to go to the bathroom but no elizabeth paroxysmal nocturnal dyspnea. He denied any history of chest pain or chest discomfort in last 4-6 weeks. He reported weight gain and leg swelling again progressively getting worse in last 2 weeks. He lives in the independent living facility came by private car to the hospital for his symptoms of shortness of breath, leg swelling, progressive fatigue and dyspnea on exertion. He denies any fever chills or cough. He denies any dysuria frequency or hematuria. He denies any history of nausea vomiting diaphoresis diarrhea constipation hematochezia. He denies any loss of appetite weight. He reports to me that he is from [place] and does not have a primary care provider. I asked him questions about where he was at hand he was able to correctly answer [facility], he also told me that Curt Mejia is the president of [employer]. 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 He reported to me he has 3 children. His has dementia and lives in a long-term facility near [place]. Meds Home Medications and Allergies Home Medications ?Medication ?Instructions ?Recorded ?Confirmed ?Type finasteride 5 mg tablet 5 mg PO BEDTIME 07/25/23 03/24/25 History metoprolol succinate 25 mg 25 mg PO BEDTIME 07/25/23 03/24/25 History tablet,extended release 24 hr rosuvastatin 5 mg tablet 5 mg PO BEDTIME 07/25/23 03/24/25 History aspirin 81 mg tablet,delayed 81 mg PO DAILY 09/07/24 03/24/25 History release Allergies Allergy/AdvReac Type Severity Reaction Status Date / Time No Known Drug Allergies Allergy Verified 03/24/25 11:17 Review of Systems Review of Systems ROS: Yes All systems reviewed with the patient and are negative except as otherwise documented Cardiovascular Cardiovascular: Reports dyspnea Respiratory Respiratory: Reports chest congestion and Reports dyspnea Exam Vital Signs (past 8 hours): - 03/25/25 04:30 03/25/25 05:00 03/25/25 05:00 Temperature Pulse Rate 91 H 93 H Respiratory Rate 18 18 Blood Pressure 111/71 Pulse Oximetry Oxygen Delivery Method Oxygen Flow Rate 03/25/25 05:30 03/25/25 06:00 03/25/25 06:30 Temperature Pulse Rate 92 H 96 H 105 H Respiratory Rate 18 40 H 21 Blood Pressure Pulse Oximetry 92 Oxygen Delivery Method Oxygen Flow Rate 03/25/25 07:00 03/25/25 07:00 03/25/25 07:30 Temperature Pulse Rate 98 H 110 H Respiratory Rate 19 20 Blood Pressure 96/61 Pulse Oximetry 90 L 93 Oxygen Delivery Method Oxygen Flow Rate 03/25/25 08:00 03/25/25 08:00 03/25/25 08:30 Temperature Pulse Rate 106 H 104 H Respiratory Rate 20 22 Blood Pressure 105/66 Pulse Oximetry Oxygen Delivery Method Oxygen Flow Rate 03/25/25 09:00 03/25/25 09:00 03/25/25 09:00 Temperature Pulse Rate 97 H Respiratory Rate 21 Blood Pressure 100/74 Pulse Oximetry Oxygen Delivery Method Room Air Oxygen Flow Rate 03/25/25 09:31 03/25/25 09:49 03/25/25 09:49 Temperature Pulse Rate 92 H 95 H Respiratory Rate 27 H 28 H Blood Pressure 95/61 Pulse Oximetry 93 Oxygen Delivery Method Oxygen Flow Rate 03/25/25 09:53 03/25/25 09:53 03/25/25 10:00 Temperature Pulse Rate 95 H Respiratory Rate 22 Blood Pressure 94/54 L 99/61 Pulse Oximetry Oxygen Delivery Method Oxygen Flow Rate 03/25/25 10:00 03/25/25 10:30 03/25/25 11:00 Temperature Pulse Rate 94 H 93 H Respiratory Rate 15 19 Blood Pressure 104/69 Pulse Oximetry Oxygen Delivery Method Oxygen Flow Rate 03/25/25 11:00 03/25/25 11:30 03/25/25 11:34 Temperature 96.7 F L Pulse Rate 86 91 H 86 Respiratory Rate 21 Blood Pressure Pulse Oximetry 95 Oxygen Delivery Method Oxygen Flow Rate 0 03/25/25 12:00 03/25/25 12:01 03/25/25 12:01 Temperature Pulse Rate 85 81 Respiratory Rate 26 H 26 H Blood Pressure 88/57 L Pulse Oximetry 95 Oxygen Delivery Method Oxygen Flow Rate Oxygen Delivery Method Room Air Oxygen Flow Rate 0 Const General: cooperative, healthy appearing, comfortable and well developed Nutritional Appearance: average body habitus Orientation: oriented x3, oriented to person and oriented to place [facility] Head: normal to inspection Eyes General: appearance normal, both eyes and all related structures Neck Neck: normal visual inspection Carotids: normal carotid upstroke Chest Chest: normal inspection of the chest Resp Effort & Inspection: normal respiratory effort Auscultation: rales Other: Mild basal crackles. Cardio Palpation: abnormal PMI Rate: regular rate Rhythm: abnormal rhythm Heart Sounds: S1 normal, S2 normal and murmur Other: Late peaking cooing systolic murmur. Extrem Other: Bilateral leg edema 1-2+. Capillary reflux is normal. Psych Appearance: grossly normal and well kempt Objective Labs 03/24/25 12:15 03/24/25 12:15 Labs: Laboratory Results - last 24 hr 03/24/25 03/24/25 03/25/25 12:15 12:30 06:15 PT 13.6 H INR 1.2 Sodium 137 Potassium 4.4 Chloride 106 Carbon Dioxide 20 L BUN 20 Creatinine 1.23 Estimated GFR 56 L BUN/Creatinine Ratio 16.3 Glucose 99 Lactate 1.5 Calcium 9.1 Total Bilirubin 1.2 AST 21 ALT 15 Alkaline Phosphatase 70 Troponin I 0.014 0.021 NT-Pro-B Natriuret Pep 96480 H Total Protein 6.8 Albumin 3.9 Globulin 2.9 Albumin/Globulin Ratio 1.3 Procalcitonin 0.059 TSH 3.68 Chlamy pneumoniae PCR Not detected Adenovirus (PCR) Not detected B. pertussis DNA (PCR) Not detected B.parapertussis DNA PCR Not detected Coronavirus OC43 (PCR) Not detected Coronavirus HKU1 (PCR) Not detected Coronavirus 229E (PCR) Not detected SARS-CoV-2 (PCR) Not detected Coronavirus NL63 (PCR) Not detected Human Metapneumovir PCR Not detected Influenza Type A (PCR) Not detected Influenza Type B (PCR) Not detected M. 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 Acute systolic heart failure: Etiologies include severe critical aortic stenosis versus tachycardia induced cardiomyopathy secondary to atrial fibrillation rapid ventricular rate. Nonetheless most recent echocardiogram reveals impaired systolic function with severe critical aortic stenosis and moderate mitral regurgitation. His BNP was severely elevated at 11,590. Patient was admitted to the hospital with heart failure symptoms and fluid overload. He had progressive shortness of breath, respiratory distress anasarca with lower extremity edema. Patient was started on diuretics and diltiazem to control his rate. 2. Atrial fibrillation with rapid ventricular rate. Patient presented with atrial fibrillation rapid ventricular rate as outlined and reviewed in the EKG at the time of admission. Patient was started on anticoagulation and diltiazem drip and then subsequently on beta juan and oral diltiazem 180 mg daily. He was started on apixaban 5 mg twice daily. His renal function weight are within normal limits for his age therefore 5 mg of apixaban is the appropriate dose for him. 3. 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 He tells me that he was admitted to the hospital with shortness of breath. I suspect his severe aortic stenosis has not been addressed for last few years due to variety of reasons. He tells me that he moved from [place] to [place] and still searching for a primary care provider. He was seeking medical care at [facility] details of which are not available. He has moderate mitral regurgitation per most recent echocardiogram. Aortic valve area 0.45 cm2. Patient asked me several questions about his aortic stenosis. The options include doing nothing and let nature take its course. Patient is not a surgical candidate due to his age. TAVR as an option can be presented to him provided he demonstrates preserved cognitive function and passes the frailty test. He was able to answer all my questions. 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 He asked me pertinent questions regarding the valve and how it is placed. In the end, he stated that he would like to speak to his boys and to the man upstairs before making a decision. 4. Hypertension: Patient has a history of hypertension however he did develop hypotension when a dose of Lasix was given. Given severe critical aortic stenosis, he is preload dependent for systemic perfusion. Diuretics should be given very carefully now that we know he has severe-Critical aortic stenosis. 5. Cognitive dysfunction : I would advise to perform MOCA or SLUMS test. New Recommendations: Shared decision-making regarding treatment options for his severe critical aortic stenosis Cognitive functional assessment Low-dose diuretics-Lasix 20 mg PO daily. Aspirin can be discontinued DNR status not established yet. Patient is full code at this point Continue apixaban 5 mg twice daily Metoprolol XL 25 mg PO daily. Tele conference with family members if needs arise. Follow up Labs CBC, BMP, BNP. Salt restricted diet Water restriction 1.5L per day. Time-Based Coding :: [TOTAL MINUTES] spent with patient and on the chart (including review of chart, obtaining history, exam, reviewing outside data, placing orders, documenting exam and treatment plan, and counseling patient) on [DATE].
--- NOTE | 2025-03-25 14:22 | CM.DPNOTE ---
DCP Cont Attempted contact with son Jhony Hernández [phone]; had to LM. Provider and staff have concerns about patient's memory loss and question patient's ability to manage his medications on his own. Contact with family would be helpful before patient leaves. Awaiting call back, no other contacts listed. [facility]
--- NOTE | 2025-03-25 15:40 | P.DS_ITS ---
History of Present Illness History of Present Illness Date Patient Seen: 03/25/25 Time Patient Seen: 15:40 Chief complaint: SOB, swelling in both legs x 2 weeks Narrative: This is an 89-year-old male with a history of BPH, hypertension, hyperlipidemia and cognitive dysfunction who presents with new CHF and Afib RVR. On initial presentation he describes 1 week of shortness of breath and leg edema. He denied chest pain and palpitations. He was in sinus rhythm. He was sent for a CT of his chest and while in CT went into atrial fibrillation with a response rate in the 140s. This was treated with IV metoprolol bringing his heart rate down below 110. He appears to have significant vascular insufficiency redness versus bilateral cellulitis of his lower legs. He has significant cognitive dysfunction and seems to confabulate or have misunderstanding of questions quite easily. He does not think that he has ever had any heart condition before. He has been started on diltiazem and apixaban. The EKG shows:Atrial fibrillation with rapid ventricular response with premature ventricular or aberrantly conducted complexes Nonspecific ST and T wave abnormality Old anteroseptal CT. [place] 0[place]014 [place] [address]. Assessment and plan: Congestive heart failure and atrial fibrillation, present on admission, active. -these appear to be new conditions based on the available information which is quite limited. -check echocardiogram -follow troponin -use metoprolol 5 mg IV q.2 hours as needed and begin on diltiazem 180 mg daily. -the ED physician spoke with global supply chain vice president Dr. Gayle who recommended to proceed with anticoagulation and beta-juan IV treatment. -check TSH -CT shows moderate pericardial effusion and bilateral pleural effusions. Proceeding with echocardiogram. -continue IV Lasix. Likely to need ARB and spironolactone. -apixaban Hypertension, present on admission. Chronic. -continue metoprolol succinate 25 mg HS and add diltiazem CD 180 mg daily. Hyperlipidemia, present on admission. Chronic. -continue rosuvastatin BPH, present on admission. Chronic. -continue finasteride Cognitive dysfunction, present on admission. Chronic. -OT evaluation for mental faculty screening, to establish current baseline. -consider repeat CT brain. DVT prevention with apixaban Discharge Providers Provider Date of admission: 03/24/25 14:23 Consults: 03/24/25 18:35 Consult to Occupational Therapy Evaluate & Treat Comment: Physician Instructions: Evaluate and treat 03/24/25 22:47 Consult to Pharmacy Routine Comment: protocol 03/25/25 08:15 Consult to Pharmacy Routine Comment: high fall risk 03/25/25 09:14 Consult to Cardiology Routine Comment: Consulting Provider: Michel William Reason for consultation: CHF Has provider been notified: Yes Discharge provider: Tiana Solis MD Exam Vital Signs (past 8 hours): - 03/25/25 08:00 03/25/25 08:00 03/25/25 08:30 Temperature Pulse Rate 106 H 104 H Respiratory Rate 20 22 Blood Pressure 105/66 Pulse Oximetry Oxygen Delivery Method Oxygen Flow Rate 03/25/25 09:00 03/25/25 09:00 03/25/25 09:00 Temperature Pulse Rate 97 H Respiratory Rate 21 Blood Pressure 100/74 Pulse Oximetry Oxygen Delivery Method Room Air Oxygen Flow Rate 03/25/25 09:31 03/25/25 09:49 03/25/25 09:49 Temperature Pulse Rate 92 H 95 H Respiratory Rate 27 H 28 H Blood Pressure 95/61 Pulse Oximetry 93 Oxygen Delivery Method Oxygen Flow Rate 03/25/25 09:53 03/25/25 09:53 03/25/25 10:00 Temperature Pulse Rate 95 H Respiratory Rate 22 Blood Pressure 94/54 L 99/61 Pulse Oximetry Oxygen Delivery Method Oxygen Flow Rate 03/25/25 10:00 03/25/25 10:30 03/25/25 11:00 Temperature Pulse Rate 94 H 93 H Respiratory Rate 15 19 Blood Pressure 104/69 Pulse Oximetry Oxygen Delivery Method Oxygen Flow Rate 03/25/25 11:00 03/25/25 11:30 03/25/25 11:34 Temperature 96.7 F L Pulse Rate 86 91 H 86 Respiratory Rate 21 Blood Pressure Pulse Oximetry 95 Oxygen Delivery Method Oxygen Flow Rate 0 03/25/25 12:00 03/25/25 12:01 03/25/25 12:01 Temperature Pulse Rate 85 81 Respiratory Rate 26 H 26 H Blood Pressure 88/57 L Pulse Oximetry 95 Oxygen Delivery Method Oxygen Flow Rate 03/25/25 12:30 03/25/25 13:00 03/25/25 15:26 Temperature 96.5 F L Pulse Rate 79 74 86 Respiratory Rate 24 29 H 23 Blood Pressure 105/59 L Pulse Oximetry 96 Oxygen Delivery Method Oxygen Flow Rate 0 Oxygen Delivery Method Room Air Oxygen Flow Rate 0 Objective Labs 03/24/25 12:15 03/24/25 12:15 Labs: Laboratory Results - last 24 hr 03/24/25 03/25/25 12:15 06:15 Troponin I 0.021 TSH 3.68 PFSH Medical History (Updated 03/25/25 @ 13:17 by Michel William MD) Acute systolic heart failure due to valvular disease Aortic stenosis with mitral and aortic insufficiency Cognitive dysfunction HLD (hyperlipidemia) HTN (hypertension) BPH (benign prostatic hyperplasia) Social History number of children: 3 household members: spouse and none other: [facility]. Smoking Status: Never smoker alcohol intake: current Type(s) of exercise: none Discharge Plan Discharge Plan Patient Disposition: Home Provider Discharge Comment: Follow up with Dr. William next week. Discharge orders & Medications Prescriptions: New Eliquis 5 mg Tablet 5 mg PO BID Qty: 60 0RF furosemide [Lasix] 20 mg tablet 20 mg PO DAILY Qty: 30 0RF Continued metoprolol succinate 25 mg tablet extended release 24 hr 25 mg PO BEDTIME finasteride 5 mg tablet 5 mg PO BEDTIME rosuvastatin 5 mg tablet 5 mg PO BEDTIME Discontinued aspirin 81 mg tablet,delayed release (DR/EC) 81 mg PO DAILY Diet/Activity/Treatments Diet: Low-sodium Visit Report/Discharge Packet Stand Alone Forms: Patient Portal/API, Stroke Signs & Symptoms Quality VTE Deep Vein Thrombosis/Pulmonary Embolism Present on Admission: No
--- NOTE | 2025-03-25 15:44 | PC.NURSE ---
Pt has removed all monitoring equipment, got dressed and is stating that he wants to go home. When asked how he plans to get home he states that is my businees. Dr Solis made aware, pt took off rolling in a chair with wheels down the hallway, this nurse was able to convince pt to go back to room. Updated Dr Solis on pt wandering, Dr will call pt son Jhony to see if he has any suggestions or recommendations. No further pt needs at this time, care on going.
[2025-03-25] MEDS: FINASTERIDE 5 MG TABLET PO (21:15)
[2025-03-25] MEDS: ATORVASTATIN 20 MG TABLET 10 MG PO (21:15)
[2025-03-25] MEDS: METOPROLOL ER 25 MG TABLET PO (21:15)
--- NOTE | 2025-03-25 22:09 | PC.NURSE ---
TALKED WITH PATIENTS SON, SHANI ABOUT HIM AND SIBLINGS COMING IN TOMORROW 03/26/25 TO HAVE A MEETING WITH ELECTROPHYSIOLOGY TECHNICIAN DR. ANGEL .SHANI STATES HE AND SIBLINGS WILL BE AT HOSPITAL FOR MEETING AT 11:30. MESSAGE LEFT FOR DR. ANGEL TELLING HIM TIME.
[2025-03-26] VITALS (13 sets, daily range): BP systolic 85–117; BP diastolic 50–63; PULSE 69–95; RESP 18–19; TEMP 35.7–36.3; O2SAT 91–96
--- NOTE | 2025-03-26 07:42 | PC.NURSE ---
front end loader driver RN note RN assumed care of pt at 2300, pt sitting up at bedside fully dressed, oriented to self, refusing to be connected for tele monitoring, refusing meds and pt care, pt appears very weary/mistrustful of staff, asked who are all those mn with cowboy hats on out there hanging around?, there were no such cowboys at the nursing station, states he is fine, just leave me sitting here, pt encouraged to to lay down or move to recliner when he was seen falling asleep sitting up, eventually pt ambulated using furniture to the recliner and fell asleep for a couple of hours in the am, call lou within reach, pt reminded to call for assistance to get up, curtain and door open, care ongoing as patient permits
[2025-03-26] MEDS: APIXABAN 5 MG TABLET PO ×2 (08:12→20:19)
--- NOTE | 2025-03-26 10:05 | PC.NURSE ---
Pt refusing telemetry, very confused and agitated this morning, attempting to walk out of room with all belongings stating he is going upstairs. This nurse reoriented pt and convince to sit back down, take his meds and eat breakfast. shift supervisor film processing reported pt did not sleep at all last night, reported to Dr Katz who added seroquel 25mg BID, first dose now. Pt is sitting up in chair with eyes closed, chest rise and fall noted, no further needs at this time, care ongoing.
[2025-03-26] MEDS: FUROSEMIDE 20 MG TABLET PO (10:37)
--- NOTE | 2025-03-26 14:46 | CM.DPC ---
Family conference today with Dr. William via Phone. Myself, Dr. Katz, pt's 2 son's, Jhony and Stalin. Also pt's DRT, Steph, present. Plan: Medical management of CHF, Outpatient Neuropsych Eval, discharge to Memory Care or SNF for placement. Jhony is open to [facility]. Neuropsych Eval needed to determine pt's current degree of dementia. If Dementia is advanced patient will not qualify for TARV procedure for is Aortic Stenosis. Steph ph# [phone] Stalin ph# [phone] Jhony ph# [phone]
--- NOTE | 2025-03-26 16:17 | P.PN_ITS ---
Subjective Subjective Date Patient Seen: 03/26/25 Interval history: Chief complaint: Acute systolic congestive heart failure with critical aortic stenosis with shortness for breath and edema History of present illness: 03/25: 89-year-old male with a history of BPH, hypertension, hyperlipidemia and cognitive dysfunction who presents with new CHF and Afib RVR. On initial presentation he describes 1 week of shortness of breath and leg edema. He denied chest pain and palpitations. He was in sinus rhythm. He was sent for a CT of his chest and while in CT went into atrial fibrillation with a response rate in the 140s. This was treated with IV metoprolol bringing his heart rate down below 110. He appears to have significant vascular insufficiency redness versus bilateral cellulitis of his lower legs. He has significant cognitive dysfunction and seems to confabulate or have misunderstanding of questions quite easily. He does not think that he has ever had any heart condition before. He has been started on diltiazem and apixaban. The EKG shows:Atrial fibrillation with rapid ventricular response with premature ventricular or aberrantly conducted complexes Nonspecific ST and T wave abnormality Old anteroseptal [place]. [place] 0[place]014 [place] [address]. 03/24: He continues with bilateral lower extremity pink discoloration of the skin consistent with venous insufficiency versus bilateral cellulitis. The TSH is 3.68. The blood pressure is 96/61 with a heart rate of 98 and a sat of 90%. Cardiology will be consulted today. His echocardiogram is significantly abnormal with: Left ventricular ejection fraction is estimated to be 25 +/- 5%. The right ventricle is normal in size and function. The left atrium is severely dilated. The right atrium is moderately dilated. There is moderate mitral regurgitation. There is severe aortic stenosis. Hospital course: 03/26: Patient sleepy today after Seroquel 25 mg then uncooperative with treatment and care. Had long discussion with 3 children who are all marion of compliance attorney with a summary of the acute management. Patient has episodes of hypotension after diuresis so we will have to diurese very gently and monitor fluid status vital signs carefully. With regard to his critical aortic stenosis patient may or may not be a candidate for the TAVR either by the the fact of his dementia or frailty or the patient himself may decide that he does not want to undergo the procedure at his age. Review of systems: No chest pain no palpitation No fever or chills No nausea vomiting Physical exam: Sleepy but no acute distress and rousable HEENT unremarkable Irregularly irregular rhythm 2/6 systolic murmur loudest left sternal border Abdomen benign Extremity 3+ edema from above knee to foot no erythema Assessment and plan: Acute on chronic systolic congestive heart failure with reduced ejection fraction 25% and complicated by severe critical aortic stenosis * Has hypotension with brisk diuresis so a more gentle diuresis approach * Long discussion with family 03/26 regarding TAVR replacement * Still very fluid overloaded Severe critical aortic stenosis: * 50% 1 year survival without TAVR * We will need cardiac catheterization for coronary anatomy * We will need to be screened for dementia and frailty prior to approval * Patient also to decide himself if he wants to this understanding risks and benefits and life choices Chronic atrial fibrillation * Rate control and diltiazem * Eliquis for CVA prophylaxis Lower extremity cellulitis * Suspicious for staph * Vancomycin DVT prophylaxis: * Covered with Eliquis Code status: * Full code blue Disposition: * Expect 2 more days of inpatient care in diuresis with monitoring hemodynamics which are labile with hypotension following diuresis after which we will assess disposition needs Time based billing: * 55 minutes were spent in evaluation of this patient including [id number] evaluation with the patient examination of the patient prolonged discussion with family and consultants case management review of objective laboratory and imaging data telemetry and EKG data and evidence based medicine database for patient's clinical situation Exam Vital Signs (past 8 hours): - 03/26/25 11:40 03/26/25 11:41 03/26/25 11:43 Temperature Pulse Rate 84 79 Respiratory Rate Blood Pressure 85/50 L Pulse Oximetry 94 96 Oxygen Flow Rate 03/26/25 11:46 03/26/25 15:04 03/26/25 15:04 Temperature 96.2 F L Pulse Rate 80 80 Respiratory Rate 19 Blood Pressure 85/50 L 89/57 L Pulse Oximetry 96 96 Oxygen Flow Rate 0 Oxygen Delivery Method Room Air Oxygen Flow Rate 0 Objective Labs 03/24/25 12:15 03/24/25 12:15 [facility] Medical History Acute systolic heart failure due to valvular disease Aortic stenosis with mitral and aortic insufficiency Cognitive dysfunction HLD (hyperlipidemia) HTN (hypertension) BPH (benign prostatic hyperplasia) Social History number of children: 3 household members: spouse and none other: Lives in a [facility] care [facility]. Smoking Status: Never smoker alcohol intake: current Type(s) of exercise: none Assessment & Plan Time-Based Coding :: [TOTAL MINUTES] spent with patient and on the chart (including review of chart, obtaining history, exam, reviewing outside data, placing orders, documenting exam and treatment plan, and counseling patient) on [DATE]. Quality VTE Deep Vein Thrombosis/Pulmonary Embolism Present on Admission: No
[2025-03-26] MEDS: ATORVASTATIN 20 MG TABLET 10 MG PO (20:18)
[2025-03-26] MEDS: FINASTERIDE 5 MG TABLET PO (20:19)
[2025-03-26] MEDS: METOPROLOL ER 25 MG TABLET PO (20:19)
[2025-03-26] MEDS: SODIUM CHLORIDE 0.9% FLUSH 10 ML IV (20:20)
[2025-03-27] VITALS (16 sets, daily range): BP systolic 80–139; BP diastolic 52–84; PULSE 48–85; RESP 15–23; TEMP 36.1–36.2; O2SAT 84–99
[2025-03-27] MEDS: APIXABAN 5 MG TABLET PO (08:33)
[2025-03-27] MEDS: FUROSEMIDE 20 MG TABLET PO ×2 (08:33→20:24)
[2025-03-27] MEDS: SODIUM CHLORIDE 0.9% FLUSH 10 ML IV ×2 (08:33→20:25)
--- NOTE | 2025-03-27 09:59 | PC.NURSE ---
Addendum entered by Heidy Fountain RN 03/27/25 19:42: Pt c/o fullness and urge to urinate. Bladder scan showed 400. New orders received. Provider reminded of urology consult ability. Per provider Dr. Katz, order to place three way ross for continuous bladder irrigation. Ross catheter placed, irrigation placed. Provider notified. Care ongoing. Addendum entered by Heidy Fountain RN 03/27/25 15:55: Coude catheter placed after 3 attempts. Dark red urine with small blood clots in urinary catheter bag noted, provider notified. New orders. Care ongoing. Original Note: Day shift: Pt reported difficulty urinating. Assisted pt to bathroom, unable to void. Bladder scan >700mL, providers Dr. Chaney and Dr. Katz notified. New orders received. Care ongoing.
--- NOTE | 2025-03-27 12:02 | PM.PN.1 ---
Subjective Subjective Date Patient Seen: 03/27/25 Time Patient Seen: 12:02 Interval history: 89-year-old male admitted to the hospital with diagnosis of atrial fibrillation rapid ventricular rate, acute systolic heart failure, severe critical aortic stenosis, anasarca, shortness of breath for 4-6 weeks prior to admission. Patient was started on appropriate therapy for rate control and anticoagulation. Diuretics were given however he became hypotensive. The Lasix dose was reduced to 20 mg daily. Interval history I had a family conference yesterday we discussed treatment options for his severe critical aortic stenosis and moderate mitral regurgitation. He is currently has class 3 heart failure symptoms and is being treated with beta blockers anticoagulants and diuretics. In the interim he developed urinary retention and had Overton's catheter.. His blood pressure has been stable since reducing the dose however the swelling in the lower extremity has gotten worse. There is some redness noted in both lower extremities suspected for cellulitis. He was started on antibiotics by the hospitalist service. Exam Vital Signs (past 8 hours): - 03/27/25 08:17 03/27/25 09:00 Temperature 97.1 F L Pulse Rate 85 Respiratory Rate 23 Blood Pressure 123/84 Pulse Oximetry 95 Oxygen Delivery Method Room Air Oxygen Flow Rate 0 Oxygen Delivery Method Room Air Oxygen Flow Rate 0 Const General: cooperative, healthy appearing and comfortable Nutritional Appearance: edematous HENMT Head: normal to inspection Other: Diminished hearing Neck Neck: normal visual inspection Carotids: normal carotid upstroke and bruit Resp Effort & Inspection: normal respiratory effort Auscultation: diminished lung sounds and rales Cardio Palpation: abnormal PMI Rate: regular rate Rhythm: abnormal rhythm Heart Sounds: S1 normal, S2 normal and murmur Skin General: erythema and warm Other: Bilateral lower extremities swelling with redness and warm of the skin. Extrem Right lower extremity: edema Left lower extremity: edema Psych Appearance: grossly normal and well kempt Objective Labs 03/24/25 12:15 03/24/25 12:15 [facility] Medical History Acute systolic heart failure due to valvular disease Aortic stenosis with mitral and aortic insufficiency Cognitive dysfunction HLD (hyperlipidemia) HTN (hypertension) BPH (benign prostatic hyperplasia) Social History number of children: 3 household members: spouse and none other: Lives in a intermediate care facility. 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 Fluid restriction Input output charting Monitoring of blood pressure to avoid hypotension Agree with Overton catheterization and antibiotic treatment for possible cellulitis Discussed with his daughter who was present in the room. Time-Based Coding :: [TOTAL MINUTES]30 minutes spent with patient and on the chart (including review of chart, obtaining history, exam, reviewing outside data, placing orders, documenting exam and treatment plan, and counseling patient) on [DATE]. Quality VTE Deep Vein Thrombosis/Pulmonary Embolism Present on Admission: No
--- NOTE | 2025-03-27 14:20 | P.PN_ITS ---
Subjective Subjective Date Patient Seen: 03/27/25 Interval history: Chief complaint: Acute systolic congestive heart failure with critical aortic stenosis with shortness for breath and edema History of present illness: 03/25: 89-year-old male with a history of BPH, hypertension, hyperlipidemia and cognitive dysfunction who presents with new CHF and Afib RVR. On initial presentation he describes 1 week of shortness of breath and leg edema. He denied chest pain and palpitations. He was in sinus rhythm. He was sent for a CT of his chest and while in CT went into atrial fibrillation with a response rate in the 140s. This was treated with IV metoprolol bringing his heart rate down below 110. He appears to have significant vascular insufficiency redness versus bilateral cellulitis of his lower legs. He has significant cognitive dysfunction and seems to confabulate or have misunderstanding of questions quite easily. He does not think that he has ever had any heart condition before. He has been started on diltiazem and apixaban. The EKG shows:Atrial fibrillation with rapid ventricular response with premature ventricular or aberrantly conducted complexes Nonspecific ST and T wave abnormality Old anteroseptal [place]. [place] 0[place]014 [place] [address]. 03/24: He continues with bilateral lower extremity pink discoloration of the skin consistent with venous insufficiency versus bilateral cellulitis. The TSH is 3.68. The blood pressure is 96/61 with a heart rate of 98 and a sat of 90%. Cardiology will be consulted today. His echocardiogram is significantly abnormal with: Left ventricular ejection fraction is estimated to be 25 +/- 5%. The right ventricle is normal in size and function. The left atrium is severely dilated. The right atrium is moderately dilated. There is moderate mitral regurgitation. There is severe aortic stenosis. Hospital course: 03/26: Patient sleepy today after Seroquel 25 mg then uncooperative with treatment and care. Had long discussion with 3 children who are all marion of deputy county attorney with a summary of the acute management. Patient has episodes of hypotension after diuresis so we will have to diurese very gently and monitor fluid status vital signs carefully. With regard to his critical aortic stenosis patient may or may not be a candidate for the TAVR either by the the fact of his dementia or frailty or the patient himself may decide that he does not want to undergo the procedure at his age. 03/27: Patient alert cogent and very sophisticated in his questions about his condition that he has not significant understanding Review of systems: No chest pain no palpitation No fever or chills No nausea vomiting Physical exam: Sleepy but no acute distress and rousable HEENT unremarkable Irregularly irregular rhythm 2/6 systolic murmur loudest left sternal border Abdomen benign Extremity 3+ edema from above knee to foot no erythema Assessment and plan: Acute on chronic systolic congestive heart failure with reduced ejection fraction 25% and complicated by severe critical aortic stenosis * Has hypotension with brisk diuresis so a more gentle diuresis approach * Long discussion with family 03/26 regarding TAVR replacement * Still very fluid overloaded Severe critical aortic stenosis: * 50% 1 year survival without TAVR * We will need cardiac catheterization for coronary anatomy * We will need to be screened for dementia and frailty prior to approval * Patient also to decide himself if he wants to this understanding risks and benefits and life choices Chronic atrial fibrillation * Rate control and diltiazem * Eliquis for CVA prophylaxis Lower extremity cellulitis * Suspicious for staph * Vancomycin DVT prophylaxis: * Covered with Eliquis Code status: * Full code blue Disposition: * Expect 2 more days of inpatient care in diuresis with monitoring hemodynamics which are labile with hypotension following diuresis after which we will assess disposition needs Time based billing: * 35 minutes were spent in evaluation of this patient including [id number] evaluation with the patient examination of the patient prolonged discussion with family and consultants case management review of objective laboratory and imaging data telemetry and EKG data and evidence based medicine database for patient's clinical situation Exam Vital Signs (past 8 hours): - 03/27/25 08:17 03/27/25 09:00 03/27/25 12:21 Temperature 97.1 F L 97.0 F L Pulse Rate 85 67 Respiratory Rate 23 20 Blood Pressure 123/84 139/61 Pulse Oximetry 95 96 Oxygen Delivery Method Room Air Oxygen Flow Rate 0 0 Oxygen Delivery Method Room Air Oxygen Flow Rate 0 Objective Labs 03/24/25 12:15 03/24/25 12:15 [facility] Medical History Acute systolic heart failure due to valvular disease Aortic stenosis with mitral and aortic insufficiency Cognitive dysfunction HLD (hyperlipidemia) HTN (hypertension) BPH (benign prostatic hyperplasia) Social History number of children: 3 household members: spouse and none other: Lives in a [facility]. Smoking Status: Never smoker alcohol intake: current Type(s) of exercise: none Assessment & Plan Time-Based Coding :: [TOTAL MINUTES] spent with patient and on the chart (including review of chart, obtaining history, exam, reviewing outside data, placing orders, documenting exam and treatment plan, and counseling patient) on [DATE]. Quality VTE Deep Vein Thrombosis/Pulmonary Embolism Present on Admission: No
[2025-03-27] MEDS: VANCOMYCIN 1,500 MG/300 ML PIGGYBACK 200 MG IV (15:20)
[2025-03-27 15:53] LABS: Add Manual Diff / Slide Review NO; Hematocrit 41.3 % (41-53); Hemoglobin 13.9 g/dL (13.5-17.5); Lymphocytes Absolute Auto 1100 /uL (1100-4500); Mean Corpuscular HGB Conc 33.7 % (30-36); Mean Corpuscular Hemoglobin 32.6 PG (26-34); Mean Corpuscular Volume 96.7 fL (80-100); Platelet Count 201 X10^3/uL (150-400)
[2025-03-27 16:05] LABS: Alanine Aminotransferase 11 IU/L (<50); Albumin 3.5 g/dL (3.5-5.0); Albumin Globulin Ratio 1.2 (1.0-2.8); Alkaline Phosphatase 55 U/L (38-126); Blood Urea Nitrogen 28 mg/dL (9-20); Calcium 9.1 mg/dL (8.4-10.2); Carbon Dioxide 23 mmol/L (22-32); Chloride 106 mmol/L (98-107); Estimated Glomerular Filt Rate 58 mL/min (>60); Globulin 2.9 g/dL (1.7-4.1); Glucose 115 mg/dL (70-99); HEMOLYSIS 50 (0-50); Potassium 4.4 mmol/L (3.4-5.1); Sodium 137 mmol/L (137-145); Total Protein 6.4 g/dL (6.3-8.2)
[2025-03-27] MEDS: FINASTERIDE 5 MG TABLET PO (20:18)
[2025-03-27] MEDS: METOPROLOL ER 25 MG TABLET PO (20:18)
[2025-03-27] MEDS: ATORVASTATIN 20 MG TABLET 10 MG PO (20:23)
[2025-03-28] VITALS (11 sets, daily range): BP systolic 103–114; BP diastolic 58–70; PULSE 61–100; RESP 20; TEMP 36.2; O2SAT 92–95
--- NOTE | 2025-03-28 08:38 | PM.PN.1 ---
Subjective Subjective Date Patient Seen: 03/28/25 Time Patient Seen: 08:38 Interval history: Total Intake 300 ml Total Output 8000 ml Balance -7700 ml Urine Output 2.90 (ml/kg/hr) Exam Vital Signs (past 8 hours): Oxygen Delivery Method Room Air Oxygen Flow Rate 0 Const General: cooperative and well developed [facility] Head: normal to inspection Eyes General: appearance normal, both eyes and all related structures Neck Neck: normal visual inspection Chest Chest: normal inspection of the chest Resp Other: Mostly clear to auscultation. Occasional faint crackles bilaterally. Cardio Rate: regular rate Rhythm: abnormal rhythm Heart Sounds: murmur Bruits: carotid bruit GI Inspection: normal to inspection General: bimanual renal exam normal bilaterally Skin General: no rashes or lesions noted Psych Appearance: grossly normal Objective Labs 03/27/25 15:47 03/27/25 15:47 Labs: Laboratory Results - last 24 hr 03/27/25 15:47 WBC 8.4 RBC 4.27 L Hgb 13.9 Hct 41.3 MCV 96.7 MCH 32.6 MCHC 33.7 RDW 14.4 Plt Count 201 Neut % (Auto) 72.0 Lymph % (Auto) 12.9 L [place] % (Auto) 11.3 Eos % (Auto) 2.7 Baso % (Auto) 1.1 Neut # (Auto) 6000 Lymph # (Auto) 1100 [place] # (Auto) 900 Eos # (Auto) 200 Baso # (Auto) 100 Sodium 137 Potassium 4.4 Chloride 106 Carbon Dioxide 23 BUN 28 H Creatinine 1.20 Estimated GFR 58 L BUN/Creatinine Ratio 23.3 H Glucose 115 H Calcium 9.1 Total Bilirubin 0.9 AST 29 ALT 11 Alkaline Phosphatase 55 Total Protein 6.4 Albumin 3.5 Globulin 2.9 Albumin/Globulin Ratio 1.2 [facility] Medical History 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 Smoking Status: Never smoker alcohol intake: current Type(s) of exercise: none Assessment & Plan Assessment and plan (1) Hematuria: Qualifiers: Hematuria type: unspecified type Qualified Code(s): R31.9 - Hematuria, unspecified Status: Acute Plan 89-year-old male presented to the hospital with dyspnea on exertion weight gain. He has a diagnosis of severe critical aortic stenosis, moderate mitral regurgitation, anasarca, hypertension, hyperlipidemia, atrial fibrillation, cognitive dysfunction. During this hospitalization he is getting diuresis. He responded very well to his change of medications yesterday. Now he is on Lasix 20 mg p.o. twice a day. He put out 7700 cc of urine. He is on apixaban which was unfortunately had to be stopped because of hematuria. I am not sure whether this is a traumatic hematuria versus spontaneous hematuria. Given his age further evaluation is indicated. Hemodynamically he is maintaining a good heart rate and blood pressure. In addition he is being treated with antibiotics for a suspected cellulitis. His renal functions are stable Recommendations: Agree with stopping the apixaban at this point continue with Lasix 20 mg twice daily, metoprolol XL 25 mg p.o. daily rosuvastatin 5 mg daily. Urology consultation will be helpful if available. Will follow up. Continue with input output charting, fluid restriction, diuretics, monitoring basic metabolic panel. Total time spent 30 minutes Time-Based Coding :: [TOTAL MINUTES] spent with patient and on the chart (including review of chart, obtaining history, exam, reviewing outside data, placing orders, documenting exam and treatment plan, and counseling patient) on [DATE]. Quality VTE Deep Vein Thrombosis/Pulmonary Embolism Present on Admission: No
[2025-03-28] MEDS: FUROSEMIDE 20 MG TABLET PO ×2 (08:58→20:38)
[2025-03-28] MEDS: SODIUM CHLORIDE 0.9% FLUSH 10 ML IV (08:58)
[2025-03-28 11:35] LABS: Add Manual Diff / Slide Review NO; Hematocrit 37.8 % (41-53); Hemoglobin 13.0 g/dL (13.5-17.5); Lymphocytes Absolute Auto 700 /uL (1100-4500); Mean Corpuscular HGB Conc 34.4 % (30-36); Mean Corpuscular Hemoglobin 33.3 PG (26-34); Mean Corpuscular Volume 96.7 fL (80-100); Platelet Count 185 X10^3/uL (150-400)
[2025-03-28 11:45] LABS: Albumin 3.4 g/dL (3.5-5.0); Albumin Globulin Ratio 1.3 (1.0-2.8); Alkaline Phosphatase 58 U/L (38-126); Blood Urea Nitrogen 24 mg/dL (9-20); Calcium 9.0 mg/dL (8.4-10.2); Carbon Dioxide 24 mmol/L (22-32); Chloride 106 mmol/L (98-107); Estimated Glomerular Filt Rate 60 mL/min (>60); Globulin 2.7 g/dL (1.7-4.1); Glucose 96 mg/dL (70-99); HEMOLYSIS < 15 (0-50); Potassium 4.6 mmol/L (3.4-5.1); Sodium 137 mmol/L (137-145); Total Protein 6.1 g/dL (6.3-8.2)
[2025-03-28 11:46] LABS: Alanine Aminotransferase 10 IU/L (<50)
--- NOTE | 2025-03-28 14:28 | P.PN_ITS ---
Subjective Subjective Date Patient Seen: 03/28/25 Interval history: Chief complaint: Acute systolic congestive heart failure with critical aortic stenosis with shortness for breath and edema History of present illness: 03/25: 89-year-old male with a history of BPH, hypertension, hyperlipidemia and cognitive dysfunction who presents with new CHF and Afib RVR. On initial presentation he describes 1 week of shortness of breath and leg edema. He denied chest pain and palpitations. He was in sinus rhythm. He was sent for a CT of his chest and while in CT went into atrial fibrillation with a response rate in the 140s. This was treated with IV metoprolol bringing his heart rate down below 110. He appears to have significant vascular insufficiency redness versus bilateral cellulitis of his lower legs. He has significant cognitive dysfunction and seems to confabulate or have misunderstanding of questions quite easily. He does not think that he has ever had any heart condition before. He has been started on diltiazem and apixaban. 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 [place] 0.014 [place] [address]. 03/24: He continues with bilateral lower extremity pink discoloration of the skin consistent with venous insufficiency versus bilateral cellulitis. The TSH is 3.68. The blood pressure is 96/61 with a heart rate of 98 and a sat of 90%. Cardiology will be consulted today. His echocardiogram is significantly abnormal with: Left ventricular ejection fraction is estimated to be 25 +/- 5%. The right ventricle is normal in size and function. The left atrium is severely dilated. The right atrium is moderately dilated. There is moderate mitral regurgitation. There is severe aortic stenosis. Hospital course: 03/26: Patient sleepy today after Seroquel 25 mg then uncooperative with treatment and care. 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 Patient has episodes of hypotension after diuresis so we will have to diurese very gently and monitor fluid status vital signs carefully. With regard to his critical aortic stenosis patient may or may not be a candidate for the TAVR either by the the fact of his dementia or frailty or the patient himself may decide that he does not want to undergo the procedure at his age. 03/27: Patient alert cogent and very sophisticated in his questions about his condition that he has not significant understanding 03/28: Patient has started developing gross hematuria last night with bladder outlet obstruction initially a coude catheter was passed and then three-way bladder irrigation for obstruction with coude catheter and gross hematuria. Dr. Bhat urology consulted in his agreed to see this patient this evening also seen by Dr. William cardiology difficult to measure urine output due to catheter placement Review of systems: No chest pain no palpitation No fever or chills No nausea vomiting Physical exam: Sleepy but no acute distress and rousable HEENT unremarkable Irregularly irregular rhythm 2/6 systolic murmur loudest left sternal border Abdomen benign Extremity 3+ edema from above knee to foot no erythema Assessment and plan: Acute on chronic systolic congestive heart failure with reduced ejection fraction 25% and complicated by severe critical aortic stenosis * Has hypotension with brisk diuresis so a more gentle diuresis approach * Long discussion with family 03/26 regarding TAVR replacement * Still very fluid overloaded Severe critical aortic stenosis: * 50% 1 year survival without TAVR * We will need cardiac catheterization for coronary anatomy * We will need to be screened for dementia and frailty prior to approval * Patient also to decide himself if he wants to this understanding risks and benefits and life choices Chronic atrial fibrillation * Rate control and diltiazem * Eliquis on hold due to gross hematuria for CVA prophylaxis Lower extremity cellulitis * Suspicious for staph * Vancomycin started 03/27 with improvement Gross hematuria favor spontaneous over traumatic * Three way catheter irrigation * Consult with Urology * Hold Eliquis DVT prophylaxis: * Covered with Eliquis Code status: * Full code blue Disposition: * Expect 2 more days of inpatient care in diuresis with monitoring hemodynamics which are labile with hypotension following diuresis after which we will assess disposition needs Time based billing: * 35 minutes were spent in evaluation of this patient including [id number] evaluation with the patient examination of the patient prolonged discussion with family and consultants case management review of objective laboratory and imaging data telemetry and EKG data and evidence based medicine database for patient's clinical situation Exam Vital Signs (past 8 hours): - 03/28/25 09:09 03/28/25 09:10 03/28/25 09:10 Temperature Pulse Rate 73 73 Blood Pressure 111/70 Pulse Oximetry 94 92 03/28/25 12:00 03/28/25 12:43 03/28/25 12:44 Temperature 97.2 F L Pulse Rate Blood Pressure 103/62 Pulse Oximetry 95 03/28/25 12:44 Temperature Pulse Rate 80 Blood Pressure Pulse Oximetry 95 Oxygen Delivery Method Room Air Oxygen Flow Rate 0 Objective Labs 03/28/25 11:20 03/28/25 11:20 Labs: Laboratory Results - last 24 hr 03/27/25 03/28/25 15:47 11:20 WBC 8.4 8.4 RBC 4.27 L 3.90 L Hgb 13.9 13.0 L Hct 41.3 37.8 L MCV 96.7 96.7 MCH 32.6 33.3 MCHC 33.7 34.4 RDW 14.4 14.7 Plt Count 201 185 Neut % (Auto) 72.0 77.8 H Lymph % (Auto) 12.9 L 7.9 L Yates % (Auto) 11.3 11.5 Eos % (Auto) 2.7 1.9 L Baso % (Auto) 1.1 0.9 Neut # (Auto) 6000 6500 Lymph # (Auto) 1100 700 L Yates # (Auto) 900 1000 H Eos # (Auto) 200 200 Baso # (Auto) 100 100 Sodium 137 137 Potassium 4.4 4.6 Chloride 106 106 Carbon Dioxide 23 24 BUN 28 H 24 H Creatinine 1.20 1.17 Estimated GFR 58 L 60 BUN/Creatinine Ratio 23.3 H 20.5 Glucose 115 H 96 Calcium 9.1 9.0 Total Bilirubin 0.9 1.1 AST 29 22 ALT 11 10 Alkaline Phosphatase 55 58 Total Protein 6.4 6.1 L Albumin 3.5 3.4 L Globulin 2.9 2.7 Albumin/Globulin Ratio 1.2 1.3 [facility] Medical History 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 Smoking Status: Never smoker alcohol intake: current Type(s) of exercise: none Assessment & Plan Time-Based Coding :: [TOTAL MINUTES] spent with patient and on the chart (including review of chart, obtaining history, exam, reviewing outside data, placing orders, documenting exam and treatment plan, and counseling patient) on [DATE]. Quality VTE Deep Vein Thrombosis/Pulmonary Embolism Present on Admission: No
[2025-03-28] MEDS: VANCOMYCIN 1,500 MG/300 ML PIGGYBACK 200 MG IV (14:57)
--- NOTE | 2025-03-28 17:06 | OT.IP.TRT ---
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) Unspecified atrial fibrillation (03/24/25) Acute systolic (congestive) heart failure (03/24/25) Hematuria, unspecified (03/24/25) Occupational Therapy Treatment Note M2 OT-IP Current Condition Start: 03/25/25 10:11 Freq: Status: Active Protocol: Document 03/25/25 10:11 [facility] (Rec: 03/25/25 10:35 [facility] Desktop) Occupational Therapy Current Condition Current Condition Evaluation Date 03/25/25 Treatment Diagnosis CHF, A-fib RVR, PNA Diagnosis Onset Date 03/24/25 M3 OT- IP Subjective and Pain Start: 03/25/25 10:11 Freq: Status: Active Protocol: Document 03/28/25 16:[address] [facility] (Rec: 03/28/25 17:06 [facility] Desktop) OT- Subjective Occupational Therapy Visit Type Type Treatment Note Visit Start Time 16:30 Visit Stop Time 16:45 Occupational Therapy Visit Comments Patient Comments Pt agreeable to participating in cognitive assessment, but declined all ADL tasks. Patient/Caregiver TO go home. Goals OT Pain Assessment Pain When Pain Assessed At Rest Pain Present Pain Present Denied Pain M4 OT- IP ADL's Start: 03/25/25 10:11 Freq: Status: Active Protocol: Document 03/25/25 10:11 [facility] (Rec: 03/25/25 10:35 [facility] Desktop) OT [id number] Comments OT Self-Feeding Not at meal time. Comments OT ADL-Grooming Comments OT Grooming Comments Not performed. OT ADL-Oral Care Comments Oral Care Comments Not performed. OT ADL-Dressing Comments OT Dressing Comments Pt refusing. Able to show pt LB dressing equipment that can be helpful for pt to use. OT ADL-Toileting Comments OT Toileting Pt able to stand with FWW and able to use the urinal Comments with SBA. OT ADL-Bathing Comments OT Bathing Comments Pt states just sponges off. Pt states has been meaning to get a shower chair but has not gotten around to it. M5 OT- IP IADL's Start: 03/25/25 10:11 Freq: Status: Active Protocol: Document 03/25/25 10:11 [facility] (Rec: 03/25/25 10:35 [facility] Desktop) OT-Instrumental Activities of Daily Living Medication Management Medication Pt states uses pill organizer. Pt would benefit from Management Comments supervision. Suggested pt to set an alarm to recall taking his meds if needed. Money Management Money Management TO continue to assess, as pt refusing to do any Comments cognitive assessments at this time. Meal Preparation Meal Preparation Pt gets meals at his facility. Comments Driving Driving Concerns Identified Regarding Safety M6 OT- IP Functional Cognition Start: 03/25/25 10:11 Freq: Status: Active Protocol: Document 03/28/25 16:57 [facility] (Rec: 03/28/25 17:06 [facility] Desktop) Cognitive Factors Limiting Selfcare Function Cognitive Ability Level of Alertness Alert Patient Orientation Name,Year,Day of Week,Place,Situation Attention Span Capable of Focused Attention,Capable of Sustained Ability Attention Ability to Follow Able to Follow One Step Commands Commands Memory Description Short Term Impaired Safety Awareness Underestimates Need for Assistance Cognitive Tests SLUMS Pt scored a 24/30 on the SLUMS indicating a mild neurocognitive disorder. A score of 27 or better is considered normal. Pt had difficulty with simple math of subtracting 23 from 100, could recall 12 animals in 60 seconds, could recall 4/5 objects in delayed recall task, and could recall 3/4 prompts for short story. Pt was somewhat self deprecating during assessment, even when performing tasks very well. OT- Vision and Hearing OT- Vision Assessment Visual Acuity Glasses For Reading Visual Attentiveness WFL Occular Pursuits WFL Visual Marroquin WFL M7 OT- IP Mobility and Balance Start: 03/25/25 10:11 Freq: Status: Active Protocol: Document 03/25/25 10:11 [facility] (Rec: 03/25/25 10:35 [facility] Desktop) OT-Transfer Assessment Sit to and From Stand Sit to and from Standby Assistance Stand Transfers Transfer Ability Standby Assistance,Contact Guard Assistance Technique Transfer Destination Chair Transfer Technique Stand Step Pivot Devices Transfer Assistive Front Wheeled Walker,4 Wheeled Walker Devices Comments Mobility Comments Pt a bit unsteady on his feet and needing from CGA to close SBA with fww or 4ww. Pt admit at times when getting up very quick feels shaky and needing to grab a hold on something. Pt states has fallen 2 weeks ago and 1-1/2 years ago due to getting up to quick and at times his legs just give way per pt. Pt will benefit from PT eval. Pt states when up on his feet and looking to the right at times get woozy as well. OT- Balance Assessment Sitting Balance and Reactions Static Sitting Good Balance Ability Dynamic Sitting Good Balance Ability Standing Balance and Reactions Static Standing Fair Balance Ability Dynamic Standing Fair Balance Ability M8 OT- IP Objective Assessments Start: 03/25/25 10:11 Freq: Status: Active Protocol: Document 03/25/25 10:11 [facility] (Rec: 03/25/25 10:35 [facility] Desktop) OT Gross Range of Motion Upper Extremity Range of Motion Assessment Left Impaired OT Strength Upper Extremity Strength Assessment Left Impaired Shoulder 3- Elbow 4 Forearm 4 Wrist 4+ Hand 4+ Comments Strength Comments RUE 3+/5 to 4/5 M9 OT- IP Assessment and Plan Start: 03/25/25 10:11 Freq: Status: Active Protocol: Document 03/28/25 16:57 [facility] (Rec: 03/28/25 17:06 [facility] Desktop) OT Summary Assessment and Plan Potential Rehabilitation Good Potential Analytic Complexity Moderate at Evaluation Summary OT Impairments Range of Motion,Strength,Balance,Functional Mobility, Dressing,Toileting,Bathing Progress Towards Slow Progress due to Medical Issues Goals Assessment Summary Pt was not agreeable to participating in ADLs during todays treatment, however, he was will to participate in cognitive screening with HUBERT. Pt scored 24/30 indicating a mild neurocognitive disorder. Pt had difficulty with delayed recall, subtraction, timed recall, and short story recall. Short term memory loss can create lead to safety concerns when living alone. Pt would continue to benefit from HH services on dc. Cont per established POC, skilled OT services remain appropriate. Pt left up in chair with all needs met and in reach. Goals Grooming Goal Independent Dressing Goal Independent Toileting Goal Independent Bathing Goal Independent Toilet Transfer Goal Independent Shower Transfer Goal Independent Days to Meet Goals 10 Frequency of Treatment Other frequency 5x/week Treatment Plan OT Treatment Plan ADL Training,Functional Mobility,Patient/Family Education,Discharge Planning Discharge Recommendations OT Discharge Home with Assistance,Home Health Recommendations Home Equipment Needs shower chair, 4ww/fww Transportation Needs Private Vehicle at Discharge
--- NOTE | 2025-03-28 18:15 | PM.CN.IH.1 ---
History of Present Illness Consult details Date Patient Seen: 03/28/25 Time Patient Seen: 17:30 Chief complaint: Gross hematuria, urinary retention Reason for consult: Gross hematuria Narrative: 89 y/o M w/ h/o BPH managed w/ Finasteride 5mg daily who is currently admitted for congestive heart failure with critical aortic stenosis, shortness of breath and edema. He was noted to have difficulty urinating a few days after admission as well as gross blood from his urethral meatus. He had a ross catheter placed with immediate drainage of red urine. This was then switched out for a 3-way hematuria catheter and CBI was initiated. Urology was consulted for further management of aforementioned urinary retention and gross hematuria. Of note, he does take Eliquis BID. Meds Home Medications and Allergies Home Medications ?Medication ?Instructions ?Recorded ?Confirmed ?Type finasteride 5 mg tablet 5 mg PO BEDTIME 07/25/23 03/24/25 History metoprolol succinate 25 mg 25 mg PO BEDTIME 07/25/23 03/24/25 History tablet,extended release 24 hr rosuvastatin 5 mg tablet 5 mg PO BEDTIME 07/25/23 03/24/25 History apixaban 5 mg tablet (Eliquis) 5 mg PO BID #60 tabs 03/25/25 Rx furosemide 20 mg tablet (Lasix) 20 mg PO DAILY #30 tabs 03/25/25 Rx Allergies Allergy/AdvReac Type Severity Reaction Status Date / Time No Known Drug Allergies Allergy Verified 03/24/25 11:17 Review of Systems Review of Systems Narrative: CONSTITUTIONAL: Denies weight loss, fevers, chills. HEENT: Denies change in vision, hearing. RESP: Denies SOB, cough. CV: Denies palpations, CP. GI: Denies abdominal pain, nausea, vomiting, diarrhea. MSK: Denies myalgia, joint pain. SKIN: Denies rash, pruritus. NEURO: Denies headache, syncope. PSYCH: Denies recent change in mood, anxiety, depression. Exam Vital Signs (past 8 hours): - 03/28/25 12:00 03/28/25 12:43 03/28/25 12:44 Temperature 97.2 F L Pulse Rate Blood Pressure 103/62 Pulse Oximetry 95 03/28/25 12:44 Temperature Pulse Rate 80 Blood Pressure Pulse Oximetry 95 Oxygen Delivery Method Room Air Oxygen Flow Rate 0 Narrative Exam Narrative: GEN: Alert and oriented X3. No acute distress. Well-nourished. EYES: PERRLA, EOMI. HENT: Moist mucus membranes, no scleral icterus, normal neck ROM. RESP: Unlabored breathing, equal rise and fall of chest bilaterally, no cyanosis appreciated. CV: No peripheral edema, unremarkable heart rate. ABD: Soft, non-tender, non-distended, no palpable masses. : Unremarkable penis, no urethral discharge, no meatal stenosis. Ross secured and draining light red urine with maximal drip of CBI. Ross balloon insufflated with 45 cc of sterile water. Manual irrigation of catheter was notable for drainage of more than 200 cc's of clot. EXT: No edema, clubbing or cyanosis. SKIN: No rashes or lesions. NEURO: No focal neurologic deficits, CN II-XII grossly intact. PSYCH: Cooperative, appropriate mood and affect. Objective Labs 03/28/25 11:20 03/28/25 11:20 Labs: Laboratory Results - last 24 hr 03/28/25 11:20 WBC 8.4 RBC 3.90 L Hgb 13.0 L Hct 37.8 L MCV 96.7 MCH 33.3 MCHC 34.4 RDW 14.7 Plt Count 185 Neut % (Auto) 77.8 H Lymph % (Auto) 7.9 L [place] % (Auto) 11.5 Eos % (Auto) 1.9 L Baso % (Auto) 0.9 Neut # (Auto) 6500 Lymph # (Auto) 700 L [place] # (Auto) 1000 H Eos # (Auto) 200 Baso # (Auto) 100 Sodium 137 Potassium 4.6 Chloride 106 Carbon Dioxide 24 BUN 24 H Creatinine 1.17 Estimated GFR 60 BUN/Creatinine Ratio 20.5 Glucose 96 Calcium 9.0 Total Bilirubin 1.1 AST 22 ALT 10 Alkaline Phosphatase 58 Total Protein 6.1 L Albumin 3.4 L Globulin 2.7 Albumin/Globulin Ratio 1.3 [facility] Medical History 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 Tobacco & Substance Use Smoking Status: Never smoker alcohol intake: current Diet and Exercise Type(s) of exercise: none Assessment & Plan Assessment and plan (1) BPH loc w urin obs/LUTS: Status: Acute Plan: 89 y/o M w/ h/o BPH managed w/ Finasteride 5mg daily who is currently admitted for congestive heart failure with critical aortic stenosis, shortness of breath and edema. He was noted to have difficulty urinating a few days after admission as well as gross blood from his urethral meatus. He had a ross catheter placed with immediate drainage of red urine. This was then switched out for a 3-way hematuria catheter and CBI was initiated. Manual irrigation today was notable for drainage of more than 200 cc's of clot. His CBI is currently running on maximal drip with crystal clear output. - Leave catheter on tension - Titrate CBI to clear - Irrigate with sterile water as necessary to dislodge any clots - Will re-evaluate in the AM - Please keep NPO beginning at midnight in case he requires a cystoscopy with clot evacuation and possible bladder fulguration - Appreciate assistance of hospitalist in the management of this patient (2) Hematuria: Qualifiers: Hematuria type: unspecified type Qualified Code(s): R31.9 - Hematuria, unspecified Status: Acute Plan: Please see plan above Time-Based Coding :: [TOTAL MINUTES] spent with patient and on the chart (including review of chart, obtaining history, exam, reviewing outside data, placing orders, documenting exam and treatment plan, and counseling patient) on [DATE]. PROFEE Charge Codes Inpatient or Observation consultation: [id number]
[2025-03-28] MEDS: METOPROLOL ER 25 MG TABLET PO (20:37)
[2025-03-28] MEDS: FINASTERIDE 5 MG TABLET PO (20:38)
[2025-03-28] MEDS: ATORVASTATIN 20 MG TABLET 10 MG PO (20:38)
[2025-03-29] VITALS (12 sets, daily range): BP systolic 89–101; BP diastolic 54–67; PULSE 63–94; RESP 14–18; TEMP 35.9–36.6; O2SAT 93–100
--- NOTE | 2025-03-29 06:57 | PC.NURSE ---
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
--- NOTE | 2025-03-29 10:02 | PM.CN.IH.1 ---
History of Present Illness Consult details Date Patient Seen: 03/29/25 Time Patient Seen: 09:30 Chief complaint: Gross hematuria, urinary retention Reason for consult: Management of ross catheter and CBI Narrative: 89 y/o M w/ h/o BPH managed w/ Finasteride 5mg daily who is currently admitted for congestive heart failure with critical aortic stenosis, AFib w/ RVR, shortness of breath and edema. He was noted to have difficulty urinating a few days after admission as well as gross blood from his urethral meatus. He had a ross catheter placed with immediate drainage of red urine. This was then switched out for a 3-way hematuria catheter and CBI was initiated. Urology was consulted for further management of aforementioned urinary retention and gross hematuria on 28 Mar 2025. Manual irrigation was notable for more than 200 cc's of clot evacuated. He remains on CBI with intermittent traction secondary to discomfort. Of note, he does take Eliquis BID, this is currently held at the moment. Meds Home Medications and Allergies Home Medications ?Medication ?Instructions ?Recorded ?Confirmed ?Type finasteride 5 mg tablet 5 mg PO BEDTIME 07/25/23 03/24/25 History metoprolol succinate 25 mg 25 mg PO BEDTIME 07/25/23 03/24/25 History tablet,extended release 24 hr rosuvastatin 5 mg tablet 5 mg PO BEDTIME 07/25/23 03/24/25 History apixaban 5 mg tablet (Eliquis) 5 mg PO BID #60 tabs 03/25/25 Rx furosemide 20 mg tablet (Lasix) 20 mg PO DAILY #30 tabs 03/25/25 Rx Allergies Allergy/AdvReac Type Severity Reaction Status Date / Time No Known Drug Allergies Allergy Verified 03/24/25 11:17 Review of Systems Review of Systems Narrative: CONSTITUTIONAL: Denies weight loss, fevers, chills. HEENT: Denies change in vision, hearing. RESP: Denies SOB, cough. CV: Denies palpations, CP. GI: Denies abdominal pain, nausea, vomiting, diarrhea. MSK: Denies myalgia, joint pain. SKIN: Denies rash, pruritus. NEURO: Denies headache, syncope. PSYCH: Denies recent change in mood, anxiety, depression. Exam Vital Signs (past 8 hours): - 03/29/25 04:03/29/25 08:00 Temperature 97.9 F Pulse Rate 85 Respiratory Rate 14 Blood Pressure 101/67 94/55 L Pulse Oximetry 95 94 Oxygen Flow Rate 0 0 Oxygen Delivery Method Room Air Oxygen Flow Rate 0 Narrative Exam Narrative: GEN: Alert and oriented X3. No acute distress. Well-nourished. EYES: PERRLA, EOMI. HENT: Moist mucus membranes, no scleral icterus, normal neck ROM. RESP: Unlabored breathing, equal rise and fall of chest bilaterally, no cyanosis appreciated. CV: No peripheral edema, unremarkable heart rate. ABD: Soft, non-tender, non-distended, no palpable masses. : Unremarkable penis, no urethral discharge, no meatal stenosis. Ross secured and draining light red urine with maximal drip of CBI. Manual irrigation of catheter performed without evacuation of any clots. EXT: No edema, clubbing or cyanosis. SKIN: No rashes or lesions. NEURO: No focal neurologic deficits, CN II-XII grossly intact. PSYCH: Cooperative, appropriate mood and affect. Objective Labs 03/28/25 11:20 03/28/25 11:20 Labs: Laboratory Results - last 24 hr 03/28/25 11:20 WBC 8.4 RBC 3.90 L Hgb 13.0 L Hct 37.8 L MCV 96.7 MCH 33.3 MCHC 34.4 RDW 14.7 Plt Count 185 Neut % (Auto) 77.8 H Lymph % (Auto) 7.9 L [place] % (Auto) 11.5 Eos % (Auto) 1.9 L Baso % (Auto) 0.9 Neut # (Auto) 6500 Lymph # (Auto) 700 L [place] # (Auto) 1000 H Eos # (Auto) 200 Baso # (Auto) 100 Sodium 137 Potassium 4.6 Chloride 106 Carbon Dioxide 24 BUN 24 H Creatinine 1.17 Estimated GFR 60 BUN/Creatinine Ratio 20.5 Glucose 96 Calcium 9.0 Total Bilirubin 1.1 AST 22 ALT 10 Alkaline Phosphatase 58 Total Protein 6.1 L Albumin 3.4 L Globulin 2.7 Albumin/Globulin Ratio 1.3 [facility] Medical History Acute systolic heart failure due to valvular 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 Tobacco & Substance Use Smoking Status: Never smoker alcohol intake: current Diet and Exercise Type(s) of exercise: none Assessment & Plan Assessment and plan (1) BPH loc w urin obs/LUTS: Status: Acute Plan: 89 y/o M w/ h/o BPH managed w/ Finasteride 5mg daily who is currently admitted for congestive heart failure with critical aortic stenosis, shortness of breath and edema. He was noted to have difficulty urinating a few days after admission as well as gross blood from his urethral meatus. He had a ross catheter placed with immediate drainage of red urine. This was then switched out for a 3-way hematuria catheter and CBI was initiated. Manual irrigation on 28 Mar 2025 was notable for drainage of more than 200 cc's of clot. His CBI is currently running on maximal drip with crystal clear output. - Leave catheter on tension - Titrate CBI to clear - Irrigate with sterile water as necessary to dislodge any clots - Will re-evaluate throughout the day - Please keep NPO beginning at midnight in case he requires a cystoscopy with clot evacuation and possible bladder fulguration - Appreciate assistance of hospitalist in the management of this patient (2) Hematuria: Qualifiers: Hematuria type: unspecified type Qualified Code(s): R31.9 - Hematuria, unspecified Status: Acute Plan: Please see plan above Time-Based Coding :: [TOTAL MINUTES] spent with patient and on the chart (including review of chart, obtaining history, exam, reviewing outside data, placing orders, documenting exam and treatment plan, and counseling patient) on [DATE]. PROFEE Charge Codes Inpatient or Observation consultation: [id number]
[2025-03-29] MEDS: SODIUM CHLORIDE 0.9% FLUSH 10 ML IV ×2 (10:27→20:53)
[2025-03-29] MEDS: FUROSEMIDE 20 MG TABLET PO (10:27)
[2025-03-29] MEDS: TAMSULOSIN 0.4 MG CAPSULE PO (11:54)
[2025-03-29] MEDS: ACETAMINOPHEN 325 MG TABLET 650 MG PO (12:45)
--- NOTE | 2025-03-29 13:05 | P.PN_ITS ---
Subjective Subjective Date Patient Seen: 03/29/25 Interval history: Chief complaint: Acute systolic congestive heart failure with critical aortic stenosis with shortness for breath and edema History of present illness: 03/25: 89-year-old male with a history of BPH, hypertension, hyperlipidemia and cognitive dysfunction who presents with new CHF and Afib RVR. On initial presentation he describes 1 week of shortness of breath and leg edema. He denied chest pain and palpitations. He was in sinus rhythm. He was sent for a CT of his chest and while in CT went into atrial fibrillation with a response rate in the 140s. This was treated with IV metoprolol bringing his heart rate down below 110. He appears to have significant vascular insufficiency redness versus bilateral cellulitis of his lower legs. He has significant cognitive dysfunction and seems to confabulate or have misunderstanding of questions quite easily. He does not think that he has ever had any heart condition before. He has been started on diltiazem and apixaban. The EKG shows:Atrial fibrillation with rapid ventricular response with premature ventricular or aberrantly conducted complexes Nonspecific ST and T wave abnormality Old anteroseptal [place]. [place] trop[place] 0.014 [place] [address]. 03/24: He continues with bilateral lower extremity pink discoloration of the skin consistent with venous insufficiency versus bilateral cellulitis. The TSH is 3.68. The blood pressure is 96/61 with a heart rate of 98 and a sat of 90%. Cardiology will be consulted today. His echocardiogram is significantly abnormal with: Left ventricular ejection fraction is estimated to be 25 +/- 5%. The right ventricle is normal in size and function. The left atrium is severely dilated. The right atrium is moderately dilated. There is moderate mitral regurgitation. There is severe aortic stenosis. Hospital course: 03/26: Patient sleepy today after Seroquel 25 mg then uncooperative with treatment and care. Had long discussion with 3 children who are all marion of civil rights attorney with a summary of the acute management. Patient has episodes of hypotension after diuresis so we will have to diurese very gently and monitor fluid status vital signs carefully. With regard to his critical aortic stenosis patient may or may not be a candidate for the TAVR either by the the fact of his dementia or frailty or the patient himself may decide that he does not want to undergo the procedure at his age. 03/27: Patient alert cogent and very sophisticated in his questions about his condition that he has not significant understanding 03/28: Patient has started developing gross hematuria last night with bladder outlet obstruction initially a coude catheter was passed and then three-way bladder irrigation for obstruction with coude catheter and gross hematuria. Dr. Bhat urology consulted in his agreed to see this patient this evening also seen by Dr. William cardiology difficult to measure urine output due to catheter placement 03/29: Patient understanding his situation although continues to manipulate his catheter has to be redirected no episodes of shortness a breath or chest pain the 3 way irrigation is demonstrating less blood Review of systems: No chest pain no palpitation No fever or chills No nausea vomiting Physical exam: Sleepy but no acute distress and rousable HEENT unremarkable Irregularly irregular rhythm 2/6 systolic murmur loudest left sternal border Abdomen benign Extremity 3+ edema from above knee to foot no erythema Assessment and plan: Acute on chronic systolic congestive heart failure with reduced ejection fraction 25% and complicated by severe critical aortic stenosis * Has hypotension with brisk diuresis so a more gentle diuresis approach * Long discussion with family 03/26 regarding TAVR replacement * Still very fluid overloaded Severe critical aortic stenosis: * 50% 1 year survival without TAVR * We will need cardiac catheterization for coronary anatomy * We will need to be screened for dementia and frailty prior to approval * Patient also to decide himself if he wants to this understanding risks and benefits and life choices Chronic atrial fibrillation * Rate control and diltiazem * Eliquis on hold due to gross hematuria for CVA prophylaxis Lower extremity cellulitis * Suspicious for staph * Vancomycin started 03/27 with improvement Gross hematuria favor spontaneous over traumatic * Three way catheter irrigation * Consult with Urology * Hold Eliquis Recommendations for urology: * - Leave catheter on tension * - Titrate CBI to clear * - Irrigate with sterile water as necessary to dislodge any clots * - Will re-evaluate throughout the day * - Please keep NPO beginning at midnight in case he requires a cystoscopy with clot evacuation and possible bladder fulguration DVT prophylaxis: * Covered with Eliquis Code status: * Full code blue Disposition: * Expect 2 more days of inpatient care in diuresis with monitoring hemodynamics which are labile with hypotension following diuresis after which we will assess disposition needs Time based billing: * 35 minutes were spent in evaluation of this patient including [id number] evaluation with the patient examination of the patient prolonged discussion with family and consultants case management review of objective laboratory and imaging data telemetry and EKG data and evidence based medicine database for patient's clinical situation Exam Vital Signs (past 8 hours): - 03/29/25 08:00 Temperature 97.9 F Pulse Rate 85 Respiratory Rate 14 Blood Pressure 94/55 L Pulse Oximetry 94 Oxygen Flow Rate 0 Oxygen Delivery Method Room Air Oxygen Flow Rate 0 Objective Labs 03/28/25 11:20 03/28/25 11:20 [facility] Medical History Acute systolic heart failure 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 Smoking Status: Never smoker alcohol intake: current Type(s) of exercise: none Assessment & Plan Time-Based Coding :: [TOTAL MINUTES] spent with patient and on the chart (including review of chart, obtaining history, exam, reviewing outside data, placing orders, documenting exam and treatment plan, and counseling patient) on [DATE]. Quality VTE Deep Vein Thrombosis/Pulmonary Embolism Present on Admission: No
--- NOTE | 2025-03-29 14:58 | OT.IPNOTE ---
Pt refusing to get up but states maybe open for a shower tomorrow.
[2025-03-29] MEDS: VANCOMYCIN 1,500 MG/300 ML PIGGYBACK 200 MG IV (15:59)
[2025-03-29] MEDS: ATORVASTATIN 20 MG TABLET 10 MG PO (20:52)
[2025-03-29] MEDS: FINASTERIDE 5 MG TABLET PO (20:52)
[2025-03-30] VITALS (13 sets, daily range): BP systolic 100–114; BP diastolic 52–73; PULSE 82–99; RESP 14–18; TEMP 36.3–36.7; O2SAT 88–95
--- NOTE | 2025-03-30 07:53 | P.PN_ITS ---
Subjective Subjective Interval history: Summary: 03/25: 89-year-old male with a history of BPH, hypertension, hyperlipidemia and cognitive dysfunction who presents with new CHF and Afib RVR. On initial presentation he describes 1 week of shortness of breath and leg edema. He denied chest pain and palpitations. He was in sinus rhythm. He was sent for a CT of his chest and while in CT went into atrial fibrillation with a response rate in the 140s. This was treated with IV metoprolol bringing his heart rate down below 110. He appears to have significant vascular insufficiency redness versus bilateral cellulitis of his lower legs. He has significant cognitive dysfunction and seems to confabulate or have misunderstanding of questions quite easily. He does not think that he has ever had any heart condition before. He has been started on diltiazem and apixaban. The EKG shows:Atrial fibrillation with rapid ventricular response with premature ventricular or aberrantly conducted complexes Nonspecific ST and T wave abnormality Old anteroseptal [place]. [place] 0[place]014 [place] [address]. 03/24: He continues with bilateral lower extremity pink discoloration of the skin consistent with venous insufficiency versus bilateral cellulitis. The TSH is 3.68. The blood pressure is 96/61 with a heart rate of 98 and a sat of 90%. Cardiology will be consulted today. His echocardiogram is significantly abnormal with: Left ventricular ejection fraction is estimated to be 25 +/- 5%. The right ventricle is normal in size and function. The left atrium is severely dilated. The right atrium is moderately dilated. There is moderate mitral regurgitation. There is severe aortic stenosis. 03/26: Patient sleepy today after Seroquel 25 mg then uncooperative with treatment and care. Had long discussion with 3 children who are all marion of patent prosecution attorney with a summary of the acute management. Patient has episodes of hypotension after diuresis so we will have to diurese very gently and monitor fluid status vital signs carefully. With regard to his critical aortic stenosis patient may or may not be a candidate for the TAVR either by the the fact of his dementia or frailty or the patient himself may decide that he does not want to undergo the procedure at his age. 03/27: Patient alert cogent and very sophisticated in his questions about his condition that he has not significant understanding 03/28: Patient has started developing gross hematuria last night with bladder outlet obstruction initially a coude catheter was passed and then three-way bladder irrigation for obstruction with coude catheter and gross hematuria. Dr. Bhat urology consulted in his agreed to see this patient this evening also seen by Dr. William cardiology difficult to measure urine output due to catheter placement 03/29: Patient understanding his situation although continues to manipulate his catheter has to be redirected no episodes of shortness a breath or chest pain the 3 way irrigation is demonstrating less blood S: He feels better today. Less fatigued. No dyspnea. He does have clearing urine with his CBI. O: NAD, alert and oriented. Fluent speech. Lungs are clear, normal rate and effort. Heart is regular, no murmur gallop or rub. Abdomen is soft, non distended. Extremities are free of edema. IMAGING: A/P: Acute on chronic systolic congestive heart failure with reduced ejection fraction 25% and complicated by severe critical aortic stenosis, improved. * Has hypotension with brisk diuresis so a more gentle diuresis approach * Long discussion with family 03/26 regarding TAVR replacement * Still very fluid overloaded Severe critical aortic stenosis, active. * 50% 1 year survival without TAVR * We will need cardiac catheterization for coronary anatomy * We will need to be screened for dementia and frailty prior to approval * Patient also to decide himself if he wants to this understanding risks and benefits and life choices Chronic atrial fibrillation, stable. * Rate control and diltiazem * Eliquis on hold due to gross hematuria for CVA prophylaxis Lower extremity cellulitis, improving. * Suspicious for staph * Vancomycin started 03/27 with improvement Gross hematuria favor spontaneous over traumatic, improving. * Three way catheter irrigation * Consult with Urology * Hold Eliquis Recommendations for urology: * - Leave catheter on tension * - Titrate CBI to clear * - Irrigate with sterile water as necessary to dislodge any clots * - Will re-evaluate throughout the day * - Please keep NPO beginning at midnight in case he requires a cystoscopy with clot evacuation and possible bladder fulguration PLAN: -discuss irrigation plan with Urology at around noon today. -continue current medications without change. -out of bed, increase activity. 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 Smoking Status: Never smoker alcohol intake: current Type(s) of exercise: none Assessment & Plan Time-Based Coding :: [TOTAL MINUTES] spent with patient and on the chart (including review of chart, obtaining history, exam, reviewing outside data, placing orders, documenting exam and treatment plan, and counseling patient) on [DATE]. Quality VTE Deep Vein Thrombosis/Pulmonary Embolism Present on Admission: No
--- NOTE | 2025-03-30 07:59 | P.CONS_ITS ---
History of Present Illness Consult details Date Patient Seen: 03/30/25 Time Patient Seen: 07:45 Chief complaint: Gross hematuria, urinary retention Reason for consult: Management of ross catheter and CBI Narrative: 89 y/o M w/ h/o BPH managed w/ Finasteride 5mg daily who is currently admitted for congestive heart failure with critical aortic stenosis, AFib w/ RVR, shortness of breath and edema. He was noted to have difficulty urinating a few days after admission as well as gross blood from his urethral meatus. He had a ross catheter placed with immediate drainage of red urine. This was then switched out for a 3-way hematuria catheter and CBI was initiated. Urology was consulted for further management of aforementioned urinary retention and gross hematuria on 28 Mar 2025. Manual irrigation was notable for more than 200 cc's of clot evacuated. He remains on CBI with traction for the last 24 hours with relatively clear output. Of note, he does take Eliquis BID, this is currently held at the moment. Meds Home Medications and Allergies Home Medications ?Medication ?Instructions ?Recorded ?Confirmed ?Type finasteride 5 mg tablet 5 mg PO BEDTIME 07/25/23 History metoprolol succinate 25 mg 25 mg PO BEDTIME 07/25/23 0 03/24/25 History tablet,extended release 24 hr rosuvastatin 5 mg tablet 5 mg PO BEDTIME 07/25/23 History apixaban 5 mg tablet (Eliquis) 5 mg PO BID #60 tabs Rx furosemide 20 mg tablet (Lasix) 20 mg PO DAILY #30 tab s 03/25/25 Rx Allergies Allergy/AdvReac Type Severity Reaction Status Date / Time No Known Drug Allergies Allergy Verified 03/24/25 11:17 Review of Systems Review of Systems Narrative: CONSTITUTIONAL: Denies weight loss, fevers, chills. HEENT: Denies change in vision, hearing. RESP: Denies SOB, cough. CV: Denies palpations, CP. GI: Denies abdominal pain, nausea, vomiting, diarrhea. MSK: Denies myalgia, joint pain. SKIN: Denies rash, pruritus. NEURO: Denies headache, syncope. PSYCH: Denies recent change in mood, anxiety, depression. Exam Vital Signs (past 8 hours): - 03/30/25 07:36 Temperature 98.1 F Pulse Rate 90 Respiratory Rate 17 Blood Pressure 114/56 L Pulse Oximetry 93 Oxygen Flow Rate 0 Oxygen Delivery Method Room Air Oxygen Flow Rate 0 Narrative Exam Narrative: GEN: Alert and oriented X3. No acute distress. Well-nourished. EYES: PERRLA, EOMI. HENT: Moist mucus membranes, no scleral icterus, normal neck ROM. RESP: Unlabored breathing, equal rise and fall of chest bilaterally, no cyanosis appreciated. CV: No peripheral edema, unremarkable heart rate. ABD: Soft, non-tender, non-distended, no palpable masses. : Unremarkable penis, no urethral discharge, no meatal stenosis. Ross secured and draining light pink urine with moderate drip of CBI and catheter on traction. EXT: No edema, clubbing or cyanosis. SKIN: No rashes or lesions. NEURO: No focal neurologic deficits, CN II-XII grossly intact. PSYCH: Cooperative, appropriate mood and affect. 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 Tobacco & Substance Use Smoking Status: Never smoker alcohol intake: current Diet and Exercise Type(s) of exercise: none Assessment & Plan Assessment and plan (1) BPH loc w urin obs/LUTS: Status: Acute Plan: 89 y/o M w/ h/o BPH managed w/ Finasteride 5mg daily who is currently admitted for congestive heart failure with critical aortic stenosis, shortness of breath and edema. He was noted to have difficulty urinating a few days after admission as well as gross blood from his urethral meatus. He had a ross catheter placed with immediate drainage of red urine. This was then switched out for a 3-way hematuria catheter and CBI was initiated. Manual irrigation on 28 Mar 2025 was notable for drainage of more than 200 cc's of clot. His CBI is currently running on moderate drip with his catheter on traction. - Titrate CBI to clear - Irrigate with sterile water as necessary to dislodge any clots - Will re-evaluate throughout the day - Please keep NPO beginning at midnight in case he requires a cystoscopy with clot evacuation and possible bladder fulguration, he may be changed to a heart healthy diet today - Appreciate assistance of hospitalist in the management of this patient (2) Hematuria: Qualifiers: Hematuria type: unspecified type Qualified Code(s): R31.9 - Hematuria, unspecified Status: Acute Plan: Please see plan above Time-Based Coding :: [TOTAL MINUTES] spent with patient and on the chart (including review of chart, obtaining history, exam, reviewing outside data, placing orders, documenting exam and treatment plan, and counseling patient) on [DATE]. PROFEE Charge Codes Inpatient or Observation consultation: [id number]
[2025-03-30] MEDS: FUROSEMIDE 20 MG TABLET PO ×2 (08:24→20:26)
[2025-03-30] MEDS: TAMSULOSIN 0.4 MG CAPSULE PO (08:24)
[2025-03-30] MEDS: SODIUM CHLORIDE 0.9% FLUSH 10 ML IV ×2 (08:24→20:29)
--- NOTE | 2025-03-30 14:27 | OT.IP.TRT ---
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) Unspecified atrial fibrillation (03/24/25) Acute systolic (congestive) heart failure (03/24/25) Benign prostatic hyperplasia with lower urinary tract symptoms (03/24/25) Hematuria, unspecified (03/24/25) Occupational Therapy Treatment Note M2 OT-IP Current Condition Start: 03/25/25 10:11 Freq: Status: Active Protocol: Document 03/25/25 10:11 [facility] (Rec: 03/25/25 10:35 [facility] Desktop) Occupational Therapy Current Condition Current Condition Evaluation Date 03/25/25 Treatment Diagnosis CHF, A-fib RVR, PNA Diagnosis Onset Date 03/24/25 M3 OT- IP Subjective and Pain Start: 03/25/25 10:11 Freq: Status: Active Protocol: Document 03/30/25 14:10 [facility] (Rec: 03/30/25 16:13 [facility] Desktop) OT- Subjective Occupational Therapy Visit Type Type Treatment Note Visit Start Time 14:10 Visit Stop Time 14:27 Occupational Therapy Visit Comments Patient Comments Pt not wanting to shower but agreed to do a cognitive assessment. Patient/Caregiver To go home. Goals OT Pain Assessment Pain When Pain Assessed At Rest Pain Present Pain Present Denied Pain M4 OT- IP ADL's Start: 03/25/25 10:11 Freq: Status: Active Protocol: Document 03/25/25 10:11 [facility] (Rec: 03/25/25 10:35 [facility] Desktop) OT [id number] Comments OT Self-Feeding Not at meal time. Comments OT ADL-Grooming Comments OT Grooming Comments Not performed. OT ADL-Oral Care Comments Oral Care Comments Not performed. OT ADL-Dressing Comments OT Dressing Comments Pt refusing. Able to show pt LB dressing equipment that can be helpful for pt to use. OT ADL-Toileting Comments OT Toileting Pt able to stand with FWW and able to use the urinal Comments with SBA. OT ADL-Bathing Comments OT Bathing Comments Pt states just sponges off. Pt states has been meaning to get a shower chair but has not gotten around to it. M5 OT- IP IADL's Start: 03/25/25 10:11 Freq: Status: Active Protocol: Document 03/25/25 10:11 [facility] (Rec: 03/25/25 10:35 [facility] Desktop) OT-Instrumental Activities of Daily Living Medication Management Medication Pt states uses pill organizer. Pt would benefit from Management Comments supervision. Suggested pt to set an alarm to recall taking his meds if needed. Money Management Money Management TO continue to assess, as pt refusing to do any Comments cognitive assessments at this time. Meal Preparation Meal Preparation Pt gets meals at his facility. Comments Driving Driving Concerns Identified Regarding Safety M6 OT- IP Functional Cognition Start: 03/25/25 10:11 Freq: Status: Active Protocol: Document 03/30/25 14:10 [facility] (Rec: 03/30/25 16:13 [facility] Desktop) Cognitive Factors Limiting Selfcare Function Cognitive Ability Level of Alertness Alert Patient Orientation Name,Year,Day of Week,Place,Situation Attention Span Capable of Focused Attention,Capable of Sustained Ability Attention Ability to Follow Able to Follow One Step Commands Commands Memory Description Short Term Impaired Cognitive Comments Cognitive Assessment Pt scored 238 seconds on Bonaparte making Part B which Comments implies severe impairments for visual attention, mental flexibility, executive functioning, speed of processing, and task switching. M7 OT- IP Mobility and Balance Start: 03/25/25 10:11 Freq: Status: Active Protocol: Document 03/25/25 10:11 [facility] (Rec: 03/25/25 10:35 [facility] Desktop) OT-Transfer Assessment Sit to and From Stand Sit to and from Standby Assistance Stand Transfers Transfer Ability Standby Assistance,Contact Guard Assistance Technique Transfer Destination Chair Transfer Technique Stand Step Pivot Devices Transfer Assistive Front Wheeled Walker,4 Wheeled Walker Devices Comments Mobility Comments Pt a bit unsteady on his feet and needing from CGA to close SBA with fww or 4ww. Pt admit at times when getting up very quick feels shaky and needing to grab a hold on something. Pt states has fallen 2 weeks ago and 1-1/2 years ago due to getting up to quick and at times his legs just give way per pt. Pt will benefit from PT eval. Pt states when up on his feet and looking to the right at times get woozy as well. OT- Balance Assessment Sitting Balance and Reactions Static Sitting Good Balance Ability Dynamic Sitting Good Balance Ability Standing Balance and Reactions Static Standing Fair Balance Ability Dynamic Standing Fair Balance Ability M8 OT- IP Objective Assessments Start: 03/25/25 10:11 Freq: Status: Active Protocol: Document 03/25/25 10:11 [facility] (Rec: 03/25/25 10:35 [facility] Desktop) OT Gross Range of Motion Upper Extremity Range of Motion Assessment Left Impaired OT Strength Upper Extremity Strength Assessment Left Impaired Shoulder 3- Elbow 4 Forearm 4 Wrist 4+ Hand 4+ Comments Strength Comments RUE 3+/5 to 4/5 M9 OT- IP Assessment and Plan Start: 03/25/25 10:11 Freq: Status: Active Protocol: Document 03/30/25 14:10 [facility] (Rec: 03/30/25 16:13 [facility] Desktop) OT Summary Assessment and Plan Potential Rehabilitation Good Potential Analytic Complexity Moderate at Evaluation Summary OT Impairments Range of Motion,Strength,Balance,Functional Mobility, Dressing,Toileting,Bathing Progress Towards Slow Progress due to Medical Issues,Slow Progress due Goals to Cognition Assessment Summary Pt not up for showering but agreed to do cognitive assessment.Pt scored 238 seconds on Bonaparte making Part B which implies severe impairments for visual attention , mental flexibility, executive functioning, speed of processing, and task switching. Pt will benefit from assist at home for especially IADL and showering needs. Goals Grooming Goal Independent Dressing Goal Independent Toileting Goal Independent Bathing Goal Independent Toilet Transfer Goal Independent Shower Transfer Goal Independent Days to Meet Goals 10 Frequency of Treatment Other frequency 5x/week Treatment Plan OT Treatment Plan ADL Training,Functional Mobility,Patient/Family Education,Discharge Planning Discharge Recommendations OT Discharge Home with Assistance,Home Health Recommendations Home Equipment Needs shower chair, 4ww/fww Transportation Needs Private Vehicle at Discharge
--- NOTE | 2025-03-30 14:31 | CM.DPNOTE ---
DCP Cont Spoke with son Jhony; reviewed the OT eval note and SLUMS= 24 which indicates mild cognitive deficit. Jhony plans to get in touch with patient's quality liaison- what does this mean for scheduling a TAVR (?) Discussed in detail; options Home to [facility] with in home caregivers vs [facility] (or 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 Emailed Jhony [email or web address] an e copy of the [employer] booklet. Jhony plans on speaking with his family this afternoon and being in touch with this CM team tomorrow. Plan: Back to [facility] with HH and in home care vs [facility] respite stay. Family lives in [place], work multimedia teacher and cannot stay with patient. MAXWELL
[2025-03-30] MEDS: FINASTERIDE 5 MG TABLET PO (20:25)
[2025-03-30] MEDS: ATORVASTATIN 20 MG TABLET 10 MG PO (20:25)
[2025-03-31] VITALS (10 sets, daily range): BP systolic 95–150; BP diastolic 60–75; PULSE 82–99; RESP 16–18; TEMP 36.6; O2SAT 92–97
--- NOTE | 2025-03-31 07:25 | PC.NURSE ---
0600 CBI clamped at this time
--- NOTE | 2025-03-31 08:02 | PM.PN.1 ---
Subjective Subjective Interval history: Summary: 03/25: 89-year-old male with a history of BPH, hypertension, hyperlipidemia and cognitive dysfunction who presents with new CHF and Afib RVR. On initial presentation he describes 1 week of shortness of breath and leg edema. He denied chest pain and palpitations. He was in sinus rhythm. He was sent for a CT of his chest and while in CT went into atrial fibrillation with a response rate in the 140s. This was treated with IV metoprolol bringing his heart rate down below 110. He appears to have significant vascular insufficiency redness versus bilateral cellulitis of his lower legs. He has significant cognitive dysfunction and seems to confabulate or have misunderstanding of questions quite easily. He does not think that he has ever had any heart condition before. He has been started on diltiazem and apixaban. The EKG shows:Atrial fibrillation with rapid ventricular response with premature ventricular or aberrantly conducted complexes Nonspecific ST and T wave abnormality Old anteroseptal ME. [place] 0[place] [address]. 03/24: He continues with bilateral lower extremity pink discoloration of the skin consistent with venous insufficiency versus bilateral cellulitis. The TSH is 3.68. The blood pressure is 96/61 with a heart rate of 98 and a sat of 90%. Cardiology will be consulted today. His echocardiogram is significantly abnormal with: Left ventricular ejection fraction is estimated to be 25 +/- 5%. The right ventricle is normal in size and function. The left atrium is severely dilated. The right atrium is moderately dilated. There is moderate mitral regurgitation. There is severe aortic stenosis. 03/26: Patient sleepy today after Seroquel 25 mg then uncooperative with treatment and care. Had long discussion with 3 children who are all marion of control equipment electrician with a summary of the acute management. Patient has episodes of hypotension after diuresis so we will have to diurese very gently and monitor fluid status vital signs carefully. With regard to his critical aortic stenosis patient may or may not be a candidate for the TAVR either by the the fact of his dementia or frailty or the patient himself may decide that he does not want to undergo the procedure at his age. 03/27: Patient alert cogent and very sophisticated in his questions about his condition that he has not significant understanding 03/28: Patient has started developing gross hematuria last night with bladder outlet obstruction initially a coude catheter was passed and then three-way bladder irrigation for obstruction with coude catheter and gross hematuria. Dr. Bhat urology consulted in his agreed to see this patient this evening also seen by Dr. William cardiology difficult to measure urine output due to catheter placement 03/29: Patient understanding his situation although continues to manipulate his catheter has to be redirected no episodes of shortness a breath or chest pain the 3 way irrigation is demonstrating less blood 03/30: improved hematuria with CBI. No dyspnea. S: Denies chest pain or dyspnea. He was anasarca of both legs. Overton catheter in place, light pink urine. No irrigation of the bladder since last evening. Eliquis is being held. Discussed with Cardiology [id number]. O: NAD, alert and oriented. Fluent speech. Lungs are clear, normal rate and effort. Heart is regular, systolic murmur and no gallop or rub. Abdomen is soft, non distended. Extremities are free of edema. IMAGING: A/P: 1. 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 2. Severe critical aortic stenosis, active. 3. Chronic atrial fibrillation, stable 4. Lower extremity cellulitis, improving. 5. Gross hematuria favor spontaneous over traumatic, improving. Recommendations for urology: - Leave catheter in, no irrigation. PLAN: -monitor for recurrence of hematuria without irrigation. -continue current medications without change. -out of bed, increase activity. -continue to diurese, discussed with Cardiology [id number]. The plan will be to try to optimize his fluid balance over the next couple of days. -outpatient plans for evaluation for TAVR. [facility] . DVT prophylaxis: -None. Currently contraindicated with primary problem of hematuria. 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 Smoking Status: Never smoker alcohol intake: current Type(s) of exercise: none Assessment & Plan Time-Based Coding :: [TOTAL MINUTES] spent with patient and on the chart (including review of chart, obtaining history, exam, reviewing outside data, placing orders, documenting exam and treatment plan, and counseling patient) on [DATE]. Quality VTE Deep Vein Thrombosis/Pulmonary Embolism Present on Admission: No
[2025-03-31] MEDS: TAMSULOSIN 0.4 MG CAPSULE 0.8 MG PO (09:14)
[2025-03-31] MEDS: FUROSEMIDE 20 MG TABLET PO ×2 (09:14→20:12)
[2025-03-31] MEDS: SODIUM CHLORIDE 0.9% FLUSH 10 ML IV ×2 (09:15→20:13)
--- NOTE | 2025-03-31 09:27 | PM.CN.IH.1 ---
History of Present Illness Consult details Date Patient Seen: 03/31/25 Time Patient Seen: 08:45 Chief complaint: Gross hematuria, urinary retention Reason for consult: Management of ross catheter and CBI Narrative: 89 y/o M w/ h/o BPH managed w/ Finasteride 5mg daily who is currently admitted for congestive heart failure with critical aortic stenosis, AFib w/ RVR, shortness of breath and edema. He was noted to have difficulty urinating a few days after admission as well as gross blood from his urethral meatus. He had a ross catheter placed with immediate drainage of red urine. This was then switched out for a 3-way hematuria catheter and CBI was initiated. Urology was consulted for further management of aforementioned urinary retention and gross hematuria on 28 Mar 2025. Manual irrigation was notable for more than 200 cc's of clot evacuated. He remains on CBI without tract for the last 24 hours and his efflux remains light pink/red without clots. Of note, he does take Eliquis BID, this is currently held at the moment. Meds Home Medications and Allergies Home Medications ?Medication ?Instructions ?Recorded ?Confirmed ?Type finasteride 5 mg tablet 5 mg PO BEDTIME 07/25/23 03/24/25 History metoprolol succinate 25 mg 25 mg PO BEDTIME 07/25/23 03/24/25 History tablet,extended release 24 hr rosuvastatin 5 mg tablet 5 mg PO BEDTIME 07/25/23 03/24/25 History apixaban 5 mg tablet (Eliquis) 5 mg PO BID #60 tabs 03/25/25 Rx furosemide 20 mg tablet (Lasix) 20 mg PO DAILY #30 tabs 03/25/25 Rx Allergies Allergy/AdvReac Type Severity Reaction Status Date / Time No Known Drug Allergies Allergy Verified 03/24/25 11:17 Review of Systems Review of Systems Narrative: CONSTITUTIONAL: Denies weight loss, fevers, chills. HEENT: Denies change in vision, hearing. RESP: Denies SOB, cough. CV: Denies palpations, CP. GI: Denies abdominal pain, nausea, vomiting, diarrhea. MSK: Denies myalgia, joint pain. SKIN: Denies rash, pruritus. NEURO: Denies headache, syncope. PSYCH: Denies recent change in mood, anxiety, depression. Exam Vital Signs (past 8 hours): - 03/31/25 08:22 Temperature 97.8 F Pulse Rate 88 Respiratory Rate 16 Blood Pressure 104/67 Pulse Oximetry 95 Oxygen Flow Rate 0 Oxygen Delivery Method Room Air Oxygen Flow Rate 0 Narrative Exam Narrative: GEN: Alert and oriented X3. No acute distress. Well-nourished. EYES: PERRLA, EOMI. HENT: Moist mucus membranes, no scleral icterus, normal neck ROM. RESP: Unlabored breathing, equal rise and fall of chest bilaterally, no cyanosis appreciated. CV: No peripheral edema, unremarkable heart rate. ABD: Soft, non-tender, non-distended, no palpable masses. : Unremarkable penis, no urethral discharge, no meatal stenosis. Ross secured and draining light pink/red urine with CBI clamped and catheter off traction. EXT: No edema, clubbing or cyanosis. SKIN: No rashes or lesions. NEURO: No focal neurologic deficits, CN II-XII grossly intact. PSYCH: Cooperative, appropriate mood and affect. 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 Tobacco & Substance Use Smoking Status: Never smoker alcohol intake: current Diet and Exercise Type(s) of exercise: none Assessment & Plan Assessment and plan (1) BPH loc w urin obs/LUTS: Status: Acute Plan: 89 y/o M w/ h/o BPH managed w/ Finasteride 5mg daily who is currently admitted for congestive heart failure with critical aortic stenosis, shortness of breath and edema. He was noted to have difficulty urinating a few days after admission as well as gross blood from his urethral meatus. He had a ross catheter placed with immediate drainage of red urine. This was then switched out for a 3-way hematuria catheter and CBI was initiated. Manual irrigation on 28 Mar 2025 was notable for drainage of more than 200 cc's of clot. His catheter efflux is light pink/red without clots with CBI clamped and catheter off traction. - Leave CBI clamped at the moment. Should it remain relatively clear or light pink/red without clots, safe for discharge to rehab - Recommend that he take Tamsulosin 0.8mg and Finasteride 5mg daily for his BPH w/ LUTS. Would not perform a voiding trial any earlier than 06 Apr 2025. Please make rehab facility aware that his catheter has 45 cc's in the balloon prior to removal of catheter. - Appreciate assistance of hospitalist in the management of this patient (2) Hematuria: Qualifiers: Hematuria type: unspecified type Qualified Code(s): R31.9 - Hematuria, unspecified Status: Acute Plan: Please see plan above Time-Based Coding :: [TOTAL MINUTES] spent with patient and on the chart (including review of chart, obtaining history, exam, reviewing outside data, placing orders, documenting exam and treatment plan, and counseling patient) on [DATE]. PROFEE Charge Codes Inpatient or Observation consultation: [id number]
--- NOTE | 2025-03-31 09:29 | PM.PN.1 ---
Exam Vital Signs (past 8 hours): - 03/31/25 08:22 Temperature 97.8 F Pulse Rate 88 Respiratory Rate 16 Blood Pressure 104/67 Pulse Oximetry 95 Oxygen Flow Rate 0 Oxygen Delivery Method Room Air Oxygen Flow Rate 0 Const General: cooperative HENMT Head: normal to inspection Mouth: oral mucosae normal Eyes General: appearance normal, both eyes and all related structures Neck Neck: normal visual inspection Chest Chest: normal inspection of the chest Resp Effort & Inspection: normal respiratory effort Auscultation: rales Other: Rales are improved now since admission. Cardio Palpation: normal PMI Rate: regular rate Rhythm: abnormal rhythm Heart Sounds: S1 normal, S2 normal and murmur Other: High pitched cooing murmur. Extrem Right lower extremity: edema Left lower extremity: edema Other: 3+ edema. Better than before. Objective Labs 03/28/25 11:20 03/28/25 11:20 [facility] Medical History Acute systolic heart failure due to valvular disease Aortic stenosis with mitral and aortic insufficiency Cognitive dysfunction HLD (hyperlipidemia) HTN (hypertension) BPH (benign prostatic hyperplasia) Social History number of children: 3 household members: spouse and none other: Lives in a alf care facility. alcohol intake: current Type(s) of exercise: none Comment: SLUMS score is 27. Assessment & Plan Assessment and plan (1) BPH loc w urin obs/LUTS: Status: Acute (2) Hematuria: Qualifiers: Hematuria type: gross Qualified Code(s): R31.0 - Gross hematuria Status: Acute (3) Acute systolic heart failure due to valvular disease: Status: Acute (4) Aortic stenosis with mitral and aortic insufficiency: Status: Acute (5) Atrial fibrillation: Qualifiers: Atrial fibrillation type: unspecified Qualified Code(s): I48.91 - Unspecified atrial fibrillation Status: Acute Assessment & Plan narrative: Clinical issues as outlined above. I had a telephone conversation with Jhony his power of employee benefits attorney regarding several clinical a nonclinical issues pertaining to his health. He has severe critical aortic stenosis with acute systolic heart failure generalized anasarca primarily preload dependent. He was started on Lasix 40 mg when he dropped his blood pressure precipitously. At that time I changed his dose to 20 mg of Lasix daily. Subsequently he developed urinary retention along with hematuria due to apixaban. Urology was consulted and he was catheterized. Since then apixaban was stopped and urinary passage was maintained with Overton's catheter. Urology is consulting on this patient. In our clinical conference today we decided to increase the dose of tamsulosin to 0.4 mg twice daily. We increased the Lasix to 20 mg 3 times daily. He has lost 7-8 lb since admission. I asked for cystoscopy to drop to urology service. Consideration for cystoscopy for both inpatient or outpatient be considered. Once patient hematuria and urinary issues are resolved at that point I will consider taking him to the medical lab technologist for complete heart catheterization and notify [facility] heart program for TAVR. Of note patient has preserved cognitive function he scored very highly on the slums test despite not having the hearing aids. When I spoke to him this morning he was very l lucid. He appeared more comfortable and was able to complete his sentences continues to have 3+ swelling in the legs with some element of redness possible cellulitis Plan is to continue with this treatment plan and see how he responds to these changes in coming couple of days. I personally called his son and notified him of her clinical decisions and status. Time-Based Coding :: [TOTAL MINUTES] 40 mins. spent with patient and on the chart (including review of chart, obtaining history, exam, reviewing outside data, placing orders, documenting exam and treatment plan, and counseling patient) on [DATE]. Quality VTE Deep Vein Thrombosis/Pulmonary Embolism Present on Admission: No
--- NOTE | 2025-03-31 10:14 | OT.IPNOTE ---
Pt refusing to reassess cognition at this time and states to think about it. Therefore to come back in PM to see pt.
--- NOTE | 2025-03-31 13:16 | OT.IPNOTE ---
Checked on pt for cognitive assessments for PM and pt states did not sleep well and feels would do well at this time. To check on the pt tomorrow.
--- NOTE | 2025-03-31 13:38 | DIET.CONS ---
Dietary Consultation Note Admission Date: 03/24/2025 14:23 Assessment: 89 y M admitted for CHF and Afib hx of severe critical aortic stenosis. Dietitian screened for LOS. EMR reviewed. Variable PO intakes, average of 70%. DFM reviewed for meal composition. Ht: 185.42 cm Wt: 112 kg BMI: 33.5 UBW: 99.79 kg on 09/07/24; currently on lasix with 3+ edema Last BM: 03/27/25 (03/27/25 18:23) MNA: 13 [place] Score: 19 Diet: 03/24/25 Dinner Heart Healthy Diet Diet Modifications: Sodium Level: 2 gm Sodium Food Texture: Level 7 - Regular Liquid Consistency: Level 0 - Thin Nutrition Percent Meal Consumed 75% 03/30/25 18:37 Labs: RBC 3.90 X10^6/uL (4.5-5.9) L 03/28/25 11:20 Hgb 13.0 g/dL (13.5-17.5) L 03/28/25 11:20 Hct 37.8 % (41-53) L 03/28/25 11:20 Creatinine 1.17 mg/dL (0.66-1.25) 03/28/25 11:20 Lactate 1.5 mmol/L (0.7-2.1) 03/24/25 12:15 NT-Pro-B Natriuret Pep 83892 pg/mL (<450) H 03/24/25 12:15 Monitoring/Evaluations: monitoring PO intakes Electronically Signed by: Vandana Lyn 03/31/25 13:38 Clinical Dietitian [address] [id number]
--- NOTE | 2025-03-31 15:15 | CM.DPNOTE ---
Addendum entered by Malika Bowen, TOWNSHIP CLERK 03/31/25 16:24: Email communication with son Jhony Booker, I think you misunderstood my email. I was not indicating that your father is ready for discharge. Yes, I placed a call to Lyn at [facility] and am waiting to hear back. Have you discussed the plan for [facility] with your dad? JW Addendum entered by Malika Bowen, [facility] 03/31/25 16:23: Email communication from son Jhony Green, Appreciate the email. Not sure who you?re getting this info from, but I spoke to my father and the real estate analyst at length today, and it doesn?t sound like my father is close, maybe Friday. We are not going to hire private caregivers for [place] and would prefer to have him at a place like [facility] for a month. His real estate analyst is not going to let him leave until he?s stable. My suggestion is that all parties involved get together so on the same page. My brother, sister, and I are getting very discouraged by the fact that there is no communication between the team. As you recall, the three of us live in [place]. Please let me know if you?ve communicated with the overall and Lyn at [facility], as you said you would. Jhony Birch Original Note: DCP Cont Email sent to pablo Booker today at Jhony Birch < >; Dimitry Booker, Did you and your family have a chance to discuss next steps for your Dad? I have been speaking with physical therapy and occupational therapy and they report he is doing better and better. The consensus remains that he would benefit from additional care and supervision if he returns to [place]- but honestly, I don't see the need for [facility]. He is walking on his own and can carry on a thoughtful conversation. My advice is to take him home to [place] with hired caregivers and home health nursing to help manage his medications. Thoughts ? Awaiting feedback from son; this [facility] planning on discussing discharge plan with patient. LJ 04/02. MAXWELL
--- NOTE | 2025-03-31 16:24 | CM.DPNOTE ---
Addendum entered by SHENG Lay 04/01/25 09:25: ADD: Spoke with patient again this morning, 10.3. Patient alert, oriented, and in good spirits. Discussed the idea of eventual discharge to [facility] - temporary facility stay with more clinical oversight and care; private pay. Patient said he would go if that's what I need to do. Patient okay with this CM team continuing discharge planning efforts with his son Jhony. Strongly encouraged patient to stay in touch with his son Jhony re efforts on patient's behalf. Placed call to [facility] compensation administrator Tyree P [phone]; discussed this referral. Emailed clinical packet and referral to: [email or web address] Sent email communication to pablo Booker with summary of above. Original Note: DCP Cont Met with patient to discuss DCP; he is hoping to return to [facility] and agreeable to and in home care. Discussed short stay at [facility], patient said he will consider. Strongly encouraged patient to discuss the discharge plan with his son Jhony. Patient agreed. MAXWELL
[2025-03-31] MEDS: METOPROLOL ER 25 MG TABLET PO (20:11)
[2025-03-31] MEDS: FINASTERIDE 5 MG TABLET PO (20:11)
[2025-03-31] MEDS: ATORVASTATIN 20 MG TABLET 10 MG PO (20:12)
[2025-04-01] VITALS (11 sets, daily range): BP systolic 90–99; BP diastolic 52–66; PULSE 64–91; RESP 18–20; TEMP 36.1–36.6; O2SAT 88–96
--- NOTE | 2025-04-01 07:54 | PM.PN.1 ---
Subjective Subjective Interval history: Course: 03/25: 89-year-old male with a history of BPH, hypertension, hyperlipidemia and cognitive dysfunction who presents with new CHF and Afib RVR. On initial presentation he describes 1 week of shortness of breath and leg edema. He denied chest pain and palpitations. He was in sinus rhythm. He was sent for a CT of his chest and while in CT went into atrial fibrillation with a response rate in the 140s. This was treated with IV metoprolol bringing his heart rate down below 110. He appears to have significant vascular insufficiency redness versus bilateral cellulitis of his lower legs. He has significant cognitive dysfunction and seems to confabulate or have misunderstanding of questions quite easily. He does not think that he has ever had any heart condition before. He has been started on diltiazem and apixaban. The EKG shows:Atrial fibrillation with rapid ventricular response with premature ventricular or aberrantly conducted complexes Nonspecific ST and T wave abnormality Old anteroseptal GA. [place] trop[place] 0.014 [place] [address]. 03/24: He continues with bilateral lower extremity pink discoloration of the skin consistent with venous insufficiency versus bilateral cellulitis. The TSH is 3.68. The blood pressure is 96/61 with a heart rate of 98 and a sat of 90%. Cardiology will be consulted today. His echocardiogram is significantly abnormal with: Left ventricular ejection fraction is estimated to be 25 +/- 5%. The right ventricle is normal in size and function. The left atrium is severely dilated. The right atrium is moderately dilated. There is moderate mitral regurgitation. There is severe aortic stenosis. 03/26: Patient sleepy today after Seroquel 25 mg then uncooperative with treatment and care. Had long discussion with 3 children who are all marion of associate attorney with a summary of the acute management. Patient has episodes of hypotension after diuresis so we will have to diurese very gently and monitor fluid status vital signs carefully. With regard to his critical aortic stenosis patient may or may not be a candidate for the TAVR either by the the fact of his dementia or frailty or the patient himself may decide that he does not want to undergo the procedure at his age. 03/27: Patient alert cogent and very sophisticated in his questions about his condition that he has not significant understanding 03/28: Patient has started developing gross hematuria last night with bladder outlet obstruction initially a coude catheter was passed and then three-way bladder irrigation for obstruction with coude catheter and gross hematuria. Dr. Bhat urology consulted in his agreed to see this patient this evening also seen by Dr. William cardiology difficult to measure urine output due to catheter placement 03/29: Patient understanding his situation although continues to manipulate his catheter has to be redirected no episodes of shortness a breath or chest pain the 3 way irrigation is demonstrating less blood 03/30: improved hematuria with CBI. No dyspnea. 03/31: CBI off, improved hematuria. SLUMS . Diuresis. DC planning. S: He was doing well, has respond to diuresis. He denies any dyspnea. It was a cramp critical . He had bladder irrigation through yesterday. He does have good range of urine today, it was brown and has a fair amount of sediment. He was currently off from anticoagulation. Dr. William reviewed his recommendations with me and the patient as well as a son marked by phone. These are as follows, discharge from the hospital, likely to [facility] on Friday. Outpatient follow up with Urology for cystoscopy within the next couple of weeks. This would then be followed by a progressive workup including right and left heart catheterization to move towards a TAVR. The TAVR would involve dual antiplatelet therapy for several months per Dr. William's report. O: VSS NAD, alert and oriented. Fluent speech. Lungs are clear, normal rate and effort. Heart is regular, 3/6 systolic murmur and no gallop or rub. Abdomen is soft, non distended. Extremities are with improving edema. A/P: 1. 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 2. Severe critical aortic stenosis, active. 3. Chronic atrial fibrillation, stable 4. Lower extremity cellulitis, improving. 5. Gross hematuria favor spontaneous over traumatic, improving. PLAN: -continue diuresis -out of bed -[place] to remain in until outpatient Urology follow up -discuss with Cardiology. Full code. LJ: Friday to [facility] with outpatient follow up with Urology and Cardiology. 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 Smoking Status: Never smoker alcohol intake: current Type(s) of exercise: none Assessment & Plan Time-Based Coding :: [TOTAL MINUTES] spent with patient and on the chart (including review of chart, obtaining history, exam, reviewing outside data, placing orders, documenting exam and treatment plan, and counseling patient) on [DATE]. Quality VTE Deep Vein Thrombosis/Pulmonary Embolism Present on Admission: No
[2025-04-01] MEDS: FUROSEMIDE 20 MG TABLET PO ×3 (09:04→20:12)
[2025-04-01] MEDS: SODIUM CHLORIDE 0.9% FLUSH 10 ML IV ×2 (09:05→20:11)
[2025-04-01] MEDS: TAMSULOSIN 0.4 MG CAPSULE 0.8 MG PO (09:23)
--- NOTE | 2025-04-01 10:05 | P.PN_ITS ---
Subjective Subjective Date Patient Seen: 04/01/25 Time Patient Seen: 10:19 Interval history: 89-year-old male presented to the hospital with dyspnea on exertion weight gain. He has a diagnosis of severe critical aortic stenosis, moderate mitral regurgitation, anasarca, hypertension, hyperlipidemia, atrial fibrillation, cognitive decline, BPH urinary retention and hematuria/ During this hospitalization he is getting diuresis. He responded very well to his change of medications yesterday. Now he is on Lasix 20 mg p.o. tid a day. He is feeling much better now and swelling of the legs is improving. He is able to complete his sentences and very comfortable in the bed as well. He is lost 7-8 lb since admission. He is maintaining his blood pressure and heart rate in the acceptable range. I am also coordinating with his children regarding his problem progress. Exam Vital Signs (past 8 hours): - 04/01/25 08:00 Pulse Rate 64 Respiratory Rate 20 Blood Pressure 99/66 Pulse Oximetry 91 Oxygen Delivery Method Room Air Oxygen Flow Rate 0 Const General: cooperative HENMT Head: normal to inspection Eyes General: appearance normal, both eyes and all related structures Neck Neck: normal visual inspection Chest Chest: normal inspection of the chest Resp Effort & Inspection: normal respiratory effort GI Inspection: normal to inspection Back/Spine/Pelvis Back: normal to inspection Neuro General: patient oriented x3 Objective Labs 03/28/25 11:20 03/28/25 11:20 [facility] Medical History Acute systolic heart failure due to valvular disease Aortic stenosis with mitral and aortic insufficiency Cognitive dysfunction HLD (hyperlipidemia) HTN (hypertension) BPH (benign prostatic hyperplasia) Social History number of children: 3 household members: spouse and none other: 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 Smoking Status: Never smoker alcohol intake: current Type(s) of exercise: none Assessment & Plan Assessment and plan (1) Acute systolic heart failure due to valvular disease: Status: Acute (2) Aortic stenosis with mitral and aortic insufficiency: Status: Acute (3) Atrial fibrillation: Qualifiers: Atrial fibrillation type: unspecified Qualified Code(s): I48.91 - Unspecified atrial fibrillation Status: Acute (4) BPH loc w urin obs/LUTS: Status: Acute (5) Hematuria: Qualifiers: Hematuria type: unspecified type Qualified Code(s): R31.9 - Hematuria, unspecified Status: Acute Plan I outlined the entire plan with the son. I also spoke with Dr. Dias. At this point we should continue with his medication regimen and continue to diurese him. He can be discharged over this weekend to a senior living care facility with a urinary catheter. And continue with low-dose diuretics. His heart rate is adequately controlled. He can follow up with Urology for catheter management. I would prefer to have him undergo cystoscopy to make sure there are no bleeding sources in his urinary passage. Subsequently a Overton catheter can be discontinued after a complete evaluation and was resumption of bladder function. At that point I would refer him to [facility] heart [facility] vascular for TAVR procedure. I want to make sure his bladder has been looked at prior to the procedure. Patient is placed on long-term antiplatelet therapy post TAVR. In addition he has atrial fibrillation a consideration for Watchman down the road. I spoke with his son and outlined my plan of care with her. Discharge medications: Metoprolol succinate 25 mg daily diltiazem 180 mg daily tamsulosin 0.4 mg daily Lasix 20 mg 3 times daily, finasteride 5 mg daily, atorvastatin 10 mg daily. Discontinue Seroquel. Holding Eliquis 5 mg twice daily for now due to bleeding risk. Time-Based Coding :: [TOTAL MINUTES] spent with patient and on the chart (including review of chart, obtaining history, exam, reviewing outside data, placing orders, documenting exam and treatment plan, and counseling patient) on [DATE]. Quality VTE Deep Vein Thrombosis/Pulmonary Embolism Present on Admission: No
--- NOTE | 2025-04-01 12:04 | PT-IP ANOTE ---
PT eval order received. EMR reviewed. checked on pt and pt refused PT. pt stated that he has a visitor and wants PT to check back later.
--- NOTE | 2025-04-01 13:10 | PT.IIE ---
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) Unspecified atrial fibrillation (03/24/25) Acute systolic (congestive) heart failure (03/24/25) Benign prostatic hyperplasia with lower urinary tract symptoms (03/24/25) Gross hematuria (03/24/25) Hematuria, unspecified (03/24/25) Medical History (Last Reviewed 04/01/25 @ 11:49 by Tomasz Dias MD) Acute systolic heart failure due to valvular disease Aortic stenosis with mitral and aortic insufficiency BPH (benign prostatic hyperplasia) Cognitive dysfunction HLD (hyperlipidemia) HTN (hypertension) Physical Therapy Inpatient Evaluation/Re-Eval M1 PT/OT-IP Prior Functional Status Start: 04/01/25 14:55 Freq: NEEDED Status: Active Protocol: Document 04/01/25 13:10 AB (Rec: 04/01/25 15:11 AB [id number]) Medical Review Prior Functional Status Medical History Yes Reviewed Communication able to make needs known Mobility and Gait pt stated that he was independent with all mobilities and ambulation without AD Activities of Daily per OT note: Pt states able to do with increased time Living and IADL's for ADL and IADL needs. Pt states drives. Social History Household Members none Living Arrangements Halfway Facility Number of Floors ( One Floor Floors) Number of Stairs To pt lives at [facility]; no steps to Enter/Railing? enter Home Environment Standard Height Toilet,Walk in Shower,Tub/Shower Home Equipment Front Wheel Walker,Hand Held Shower,Grab Bars Near Toilet,Grab Bars In Shower M2 PT-IP Current Condition Start: 04/01/25 14:55 Freq: NEEDED Status: Active Protocol: Document 04/01/25 13:10 AB (Rec: 04/01/25 15:11 AB [id number]) Physical Therapy Current Condition Current Condition Evaluation Date 04/01/25 Treatment Diagnosis CHF; hematuria; difficulty in walking Onset Date 03/24/25 M3 PT-IP Subjective Start: 04/01/25 14:55 Freq: NEEDED Status: Active Protocol: Document 04/01/25 13:10 AB (Rec: 04/01/25 15:11 AB [id number]) Subjective Physical Therapy Visit Type Type Initial Evaluation Visit Start Time 13:10 Visit Stop Time 13:30 Number of RETAIL GIFT CARD MERCHANDISING Visits 0 Physical Therapy Visit Comments Patient Comments needs motivation to participate M4 PT-IP Mobility and Gait Start: 04/01/25 14:55 Freq: NEEDED Status: Active Protocol: Document 04/01/25 13:10 AB (Rec: 04/01/25 15:11 AB [id number]) PT-Transfer Assessment Sit to and From Stand Sit to and from Contact Guard Assistance,1 Person Assistance,Use of Stand Upper Extremities Equipment Transfer Assistive Front Wheeled Walker Device Orthotic/Prosthetic No Devices or Brace: Transfers Transfer Destination Bed,Chair Transfer Technique ambulated Transfer Ability Level of Assist Contact Guard Assistance,1 Person Assistance,Use of Upper Extremities Comments Mobility Comments pt sitting on the chair. Initially refusing PT. educated pt on importance of mobility. pt agreed to do PT and stated that he will try today but he will tell me if he does not want anymore. obtained PLOF and home set up. pt refused other activities aside from ambulation. completed sit to stand from the chair CGA and ambulated ~ 15 ft using fWW CGA and pt needing to sit down. pt sat on EOB and rested. sit to stand again CGA and ambulated back to chair using FWW CGA. call light and table placed within reach. pt agreed for PT to see him again tomorrow. Gait Assessment Gait Gait Assistance Contact Guard Assist Required: Distance (Feet) 15 Able to Maintain Yes Weight Bearing Status During Gait Assistive Devices Assistive Device Gait Belt,Front Wheeled Walker Orthotic/Prosthetic No Devices or Brace: Gait Deviations General Gait Pattern Decreased Stride Length,Decreased Feet Clearance,Step- to Gait Factors Limiting Gait Function Factors Limiting Decreased Activity Tolerance,Decreased Strength,Poor Gait Function Balance,Poor Safety Awareness PT-Balance Assessment Sitting Balance and Reactions Static Sitting Good Balance Ability Dynamic Sitting Fair Balance Ability Standing Balance and Reactions Static Standing Fair Balance Ability Dynamic Standing Fair Balance Ability Device Used FWW M5 PT-IP Objective Assessments Start: 04/01/25 14:55 Freq: NEEDED Status: Active Protocol: Document 04/01/25 13:10 AB (Rec: 04/01/25 15:11 AB [id number]) Orientation Orientation/Cognition Level of Alertness Alert Orientation Name,Place,Situation Language Function No Deficits Noted Ability Safety Awareness Decreased Safety Awareness Memory Description No Deficits Noted Muscle Tone Muscle Tone WNL Yes M6 PT-IP Treatment Start: 04/01/25 14:55 Freq: NEEDED Status: Active Protocol: Document 04/01/25 13:10 AB (Rec: 04/01/25 15:11 AB [id number]) Physical Therapy Treatment Education Education Provided Safety M7 PT-IP Assessment and Plan Start: 04/01/25 14:55 Freq: NEEDED Status: Active Protocol: Document 04/01/25 13:10 AB (Rec: 04/01/25 15:11 AB [id number]) PT Summary Assessment and Plan Potential Rehabilitation Fair Potential Status of Condition Unstable at Evaluation Summary Impairments Pain,ROM,Strength,Balance,Coordination,Sensation,Tone, Cognition,Bed Mobility,Transfers,Gait,Activity Tolerance Assessment Summary pt is an 89 y/o M who is admitted for CHF. pt also has BPH and had hematuria during hospital stay and currently also being treated for that. pt tends to direct his own care and needs motivation to participate . pt only agreed to ambulate and refused other activities. pt able to ambulate using FWW CGA ~ 15. pt presents with generalized weakness with decrease activity tolerance affecting mobility independence. pt will benefit from SNF rehab to improve overall strength and independence. Goals Bed Mobility Goal Independent Transfer Goal Independent,Front Wheeled Walker Gait Goal Independent,Front Wheel Walker Gait Distance 100 Other Goals improve transfers, ambulation using LRAD/without AD 150 ft mod I Days to Meet Goals 10 Frequency of Treatment Frequency Of Once a Day Treatment Treatment Plan Physical Therapy Bed Mobility Training,Transfer Training,Gait Training, Treatment Plan Therapeutic Exercise,Balance Retraining,Discharge Planning,Hot or Cold Pack,Neuromuscular Re-ed, Coordination Retraining Recommendations To Nursing Amount of Assist 1 Person Assist Needed Discharge Recommendations PT Discharge SNF Rehab Recommendations Transportation Needs Private Vehicle,Wheelchair/Cabulance at Discharge - PT assist 1
--- NOTE | 2025-04-01 14:03 | CM.DPNOTE ---
JAGDEEP Nicholson from [facility] coming to assess patient Wednesday 04/04. JW
--- NOTE | 2025-04-01 16:19 | OT.IP.TRT ---
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) Unspecified atrial fibrillation (03/24/25) Acute systolic (congestive) heart failure (03/24/25) Benign prostatic hyperplasia with lower urinary tract symptoms (03/24/25) Gross hematuria (03/24/25) Hematuria, unspecified (03/24/25) Occupational Therapy Treatment Note M2 OT-IP Current Condition Start: 03/25/25 10:11 Freq: Status: Active Protocol: Document 03/25/25 10:11 [facility] (Rec: 03/25/25 10:35 [facility] Desktop) Occupational Therapy Current Condition Current Condition Evaluation Date 03/25/25 Treatment Diagnosis CHF, A-fib RVR, PNA Diagnosis Onset Date 03/24/25 M3 OT- IP Subjective and Pain Start: 03/25/25 10:11 Freq: Status: Active Protocol: Document 04/01/25 16:11 [facility] (Rec: 04/01/25 16:19 [facility] Desktop) OT- Subjective Occupational Therapy Visit Type Type Treatment Note Visit Start Time 14:30 Visit Stop Time 14:45 Occupational Therapy Visit Comments Patient Comments Pt agreed to participate in cognitive assessment with moderate encouragement. Patient/Caregiver To go home. Goals OT Pain Assessment Pain When Pain Assessed At Rest Pain Present Pain Present Denied Pain M4 OT- IP ADL's Start: 03/25/25 10:11 Freq: Status: Active Protocol: Document 03/25/25 10:11 [facility] (Rec: 03/25/25 10:35 [facility] Desktop) OT [id number] Comments OT Self-Feeding Not at meal time. Comments OT ADL-Grooming Comments OT Grooming Comments Not performed. OT ADL-Oral Care Comments Oral Care Comments Not performed. OT ADL-Dressing Comments OT Dressing Comments Pt refusing. Able to show pt LB dressing equipment that can be helpful for pt to use. OT ADL-Toileting Comments OT Toileting Pt able to stand with FWW and able to use the urinal Comments with SBA. OT ADL-Bathing Comments OT Bathing Comments Pt states just sponges off. Pt states has been meaning to get a shower chair but has not gotten around to it. M5 OT- IP IADL's Start: 03/25/25 10:11 Freq: Status: Active Protocol: Document 03/25/25 10:11 [facility] (Rec: 03/25/25 10:35 [facility] Desktop) OT-Instrumental Activities of Daily Living Medication Management Medication Pt states uses pill organizer. Pt would benefit from Management Comments supervision. Suggested pt to set an alarm to recall taking his meds if needed. Money Management Money Management TO continue to assess, as pt refusing to do any Comments cognitive assessments at this time. Meal Preparation Meal Preparation Pt gets meals at his facility. Comments Driving Driving Concerns Identified Regarding Safety M6 OT- IP Functional Cognition Start: 03/25/25 10:11 Freq: Status: Active Protocol: Document 04/01/25 16:11 [facility] (Rec: 04/01/25 16:19 [facility] Desktop) Cognitive Factors Limiting Selfcare Function Cognitive Ability Level of Alertness Alert Patient Orientation Name,Year,Day of Week,Place,Situation Attention Span Capable of Focused Attention,Capable of Sustained Ability Attention Ability to Follow Able to Follow One Step Commands Commands Memory Description Short Term Impaired Safety Awareness Underestimates Need for Assistance Cognitive Comments Cognitive Assessment Pt participated in PrevacusBOX Assessment. Pt had 5 Comments pill bottles and a AM/PM pill sorter and was asked to follow the instructions on the label and fill the pill sorter. Pt was able to do this successfully for 4/5 bottles. On one bottle the instructions were to put 2 tablets twice daily, pt did this correctly for 2/7 day of the week, but required OT to provide specific cues to correctly fill the AM for 4/7 days of the week. 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 OT- Vision and Hearing OT- Vision Assessment Visual Acuity Glasses For Reading Visual Attentiveness WFL Occular Pursuits WFL Visual Marroquin WFL M7 OT- IP Mobility and Balance Start: 03/25/25 10:11 Freq: Status: Active Protocol: Document 03/25/25 10:11 [facility] (Rec: 03/25/25 10:35 [facility] Desktop) OT-Transfer Assessment Sit to and From Stand Sit to and from Standby Assistance Stand Transfers Transfer Ability Standby Assistance,Contact Guard Assistance Technique Transfer Destination Chair Transfer Technique Stand Step Pivot Devices Transfer Assistive Front Wheeled Walker,4 Wheeled Walker Devices Comments Mobility Comments Pt a bit unsteady on his feet and needing from CGA to close SBA with fww or 4ww. Pt admit at times when getting up very quick feels shaky and needing to grab a hold on something. Pt states has fallen 2 weeks ago and 1-1/2 years ago due to getting up to quick and at times his legs just give way per pt. Pt will benefit from PT eval. Pt states when up on his feet and looking to the right at times get woozy as well. OT- Balance Assessment Sitting Balance and Reactions Static Sitting Good Balance Ability Dynamic Sitting Good Balance Ability Standing Balance and Reactions Static Standing Fair Balance Ability Dynamic Standing Fair Balance Ability M8 OT- IP Objective Assessments Start: 03/25/25 10:11 Freq: Status: Active Protocol: Document 03/25/25 10:11 [facility] (Rec: 03/25/25 10:35 [facility] Desktop) OT Gross Range of Motion Upper Extremity Range of Motion Assessment Left Impaired OT Strength Upper Extremity Strength Assessment Left Impaired Shoulder 3- Elbow 4 Forearm 4 Wrist 4+ Hand 4+ Comments Strength Comments RUE 3+/5 to 4/5 M9 OT- IP Assessment and Plan Start: 03/25/25 10:11 Freq: Status: Active Protocol: Document 04/01/25 16:11 [facility] (Rec: 04/01/25 16:19 [facility] Desktop) OT Summary Assessment and Plan Potential Rehabilitation Fair Potential Analytic Complexity Moderate at Evaluation Summary Progress Towards Slow Progress due to Medical Issues,Slow Progress due Goals to Cognition Assessment Summary Pt continues to decline all BADL and required moderate encouragement to participate in cognitive assessment. Pt participated in JibJab Assessment. Pt made mistakes with 1 pill bottle, missing 4 days of prescribed doses. Pt was not able to notice or self correct the mistake and required OT to provide specific cues to correctly fill the AM for 4/7 days of the week . 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 Per the assessment, pt may require check in support for his IADLs and to help with independent living. Cont per established POC. Goals Grooming Goal Independent Dressing Goal Independent Toileting Goal Independent Bathing Goal Independent Toilet Transfer Goal Independent Shower Transfer Goal Independent Days to Meet Goals 10 Frequency of Treatment Frequency Of Once a Day Treatment Other frequency 5x/week Treatment Plan OT Treatment Plan ADL Training,Functional Mobility,Patient/Family Education,Discharge Planning Discharge Recommendations OT Discharge Home with Assistance,Home Health Recommendations Home Equipment Needs shower chair, 4ww/fww Transportation Needs Private Vehicle at Discharge
--- NOTE | 2025-04-01 19:03 | PC.NURSE ---
Pt up OOB most of shift. Shower completed. Tian still putting out old dark blood, good output of 750, no flushing done. DC planning continued, potential DC on Friday.
[2025-04-01] MEDS: FINASTERIDE 5 MG TABLET PO (20:12)
[2025-04-01] MEDS: ATORVASTATIN 20 MG TABLET 10 MG PO (20:12)
[2025-04-02] VITALS (14 sets, daily range): BP systolic 80–133; BP diastolic 54–71; PULSE 66–103; RESP 16–22; TEMP 36–36.6; O2SAT 92–99
[2025-04-02] MEDS: FUROSEMIDE 20 MG TABLET PO ×3 (08:12→20:18)
[2025-04-02] MEDS: TAMSULOSIN 0.4 MG CAPSULE 0.8 MG PO (08:12)
[2025-04-02] MEDS: SODIUM CHLORIDE 0.9% FLUSH 10 ML IV (09:09)
--- NOTE | 2025-04-02 14:19 | PC.NURSE ---
Per dante Marie to have no IV access.
--- NOTE | 2025-04-02 17:48 | P.PN_ITS ---
Subjective Subjective Date Patient Seen: 04/02/25 Interval history: Chief complaint: Acute systolic congestive heart failure with critical aortic stenosis with shortness for breath and edema History of present illness: 03/25: 89-year-old male with a history of BPH, hypertension, hyperlipidemia and cognitive dysfunction who presents with new CHF and Afib RVR. On initial presentation he describes 1 week of shortness of breath and leg edema. He denied chest pain and palpitations. He was in sinus rhythm. He was sent for a CT of his chest and while in CT went into atrial fibrillation with a response rate in the 140s. This was treated with IV metoprolol bringing his heart rate down below 110. He appears to have significant vascular insufficiency redness versus bilateral cellulitis of his lower legs. He has significant cognitive dysfunction and seems to confabulate or have misunderstanding of questions quite easily. He does not think that he has ever had any heart condition before. He has been started on diltiazem and apixaban. The EKG shows:Atrial fibrillation with rapid ventricular response with premature ventricular or aberrantly conducted complexes Nonspecific ST and T wave abnormality Old anteroseptal [place]. The [place] 0.014 [place] [address]. 03/24: He continues with bilateral lower extremity pink discoloration of the skin consistent with venous insufficiency versus bilateral cellulitis. The TSH is 3.68. The blood pressure is 96/61 with a heart rate of 98 and a sat of 90%. Cardiology will be consulted today. His echocardiogram is significantly abnormal with: Left ventricular ejection fraction is estimated to be 25 +/- 5%. The right ventricle is normal in size and function. The left atrium is severely dilated. The right atrium is moderately dilated. There is moderate mitral regurgitation. There is severe aortic stenosis. Hospital course: 03/26: Patient sleepy today after Seroquel 25 mg then uncooperative with treatment and care. Had long discussion with 3 children who are all marion of family law attorney with a summary of the acute management. Patient has episodes of hypotension after diuresis so we will have to diurese very gently and monitor fluid status vital signs carefully. With regard to his critical aortic stenosis patient may or may not be a candidate for the TAVR either by the the fact of his dementia or frailty or the patient himself may decide that he does not want to undergo the procedure at his age. 03/27: Patient alert cogent and very sophisticated in his questions about his condition that he has not significant understanding 03/28: Patient has started developing gross hematuria last night with bladder outlet obstruction initially a coude catheter was passed and then three-way bladder irrigation for obstruction with coude catheter and gross hematuria. Dr. Bhat urology consulted in his agreed to see this patient this evening also seen by Dr. William cardiology difficult to measure urine output due to catheter placement 03/29: Patient understanding his situation although continues to manipulate his catheter has to be redirected no episodes of shortness a breath or chest pain the 3 way irrigation is demonstrating less blood 03/30: improved hematuria with CBI. No dyspnea. 03/31: CBI off, improved hematuria. SLUMS . Diuresis. DC planning. 04/01: He was doing well, has respond to diuresis. He denies any dyspnea. It was a cramp critical . He had bladder irrigation through yesterday. He does have good range of urine today, it was brown and has a fair amount of sediment. He was currently off from anticoagulation. Dr. William reviewed his recommendations with me and the patient as well as a son marked by phone. These are as follows, discharge from the hospital, likely to [facility] on Friday. Outpatient follow up with Urology for cystoscopy within the next couple of weeks. This would then be followed by a progressive workup including right and left heart catheterization to move towards a TAVR. The TAVR would involve dual antiplatelet therapy for several months per Dr. William's report. 04/02: No new complaints at this time very slowly diuresing very old blood appearing catheter no red blood off of anticoagulation Review of systems: No chest pain no palpitation No fever or chills No nausea vomiting Physical exam: Sleepy but no acute distress and rousable HEENT unremarkable Irregularly irregular rhythm 2/6 systolic murmur loudest left sternal border Abdomen benign Extremity 3+ edema from above knee to foot no erythema Assessment and plan: Acute on chronic systolic congestive heart failure with reduced ejection fraction 25% and complicated by severe critical aortic stenosis * Has hypotension with brisk diuresis so a more gentle diuresis approach * Long discussion with family 03/26 regarding TAVR replacement * Still very fluid overloaded Severe critical aortic stenosis: * 50% 1 year survival without TAVR * We will need cardiac catheterization for coronary anatomy * We will need to be screened for dementia and frailty prior to approval * Patient also to decide himself if he wants to this understanding risks and benefits and life choices Chronic atrial fibrillation * Rate control and diltiazem * Eliquis on hold due to gross hematuria for CVA prophylaxis Lower extremity cellulitis (possibly dermatitis) * Suspicious for staph * Vancomycin started 03/27 with improvement and complete * Topical antifungal t.i.d. Gross hematuria favor spontaneous * Leave in catheter in at discharge * Follow up outpatient with possible cystoscopy DVT prophylaxis: * Contraindicated due to bleeding Code status: * Full code blue Disposition: * plan discharge from the hospital, likely to [facility] on Wednesday 04/04 * Outpatient follow up with Urology for cystoscopy within the next couple of weeks. * This would then be followed by a progressive workup including right and left heart catheterization to move towards a TAVR. * The TAVR would involve dual antiplatelet therapy for several months per Dr. William's report. Time based billing: * 35 minutes were spent in evaluation of this patient including [id number] evaluation with the patient examination of the patient prolonged discussion with family and consultants case management review of objective laboratory and imaging data telemetry and EKG data and evidence based medicine database for patient's clinical situation Exam Vital Signs (past 8 hours): - 04/02/25 11:00 04/02/25 15:00 Temperature 96.8 F L 97.8 F Pulse Rate 89 78 Respiratory Rate 20 22 Blood Pressure 98/54 L 93/56 L Pulse Oximetry 95 96 Oxygen Delivery Method Room Air Oxygen Flow Rate 0 Objective Labs 03/28/25 11:20 03/28/25 11:20 PFSH Medical History Acute systolic heart failure due to valvular disease Aortic stenosis with mitral and aortic insufficiency Cognitive dysfunction HLD (hyperlipidemia) HTN (hypertension) BPH (benign prostatic hyperplasia) Social History number of children: 3 household members: none other: Lives in a skilled nursing care facility. Smoking Status: Never smoker alcohol intake: current Type(s) of exercise: none Assessment & Plan Time-Based Coding :: [TOTAL MINUTES] spent with patient and on the chart (including review of chart, obtaining history, exam, reviewing outside data, placing orders, documenting exam and treatment plan, and counseling patient) on [DATE]. Quality VTE Deep Vein Thrombosis/Pulmonary Embolism Present on Admission: No
--- NOTE | 2025-04-02 17:59 | PT-IP ANOTE ---
checked on pt and pt refused PT. stated that he just got up with nursing staff and does not want to do PT.
[2025-04-02] MEDS: ATORVASTATIN 20 MG TABLET 10 MG PO (20:16)
[2025-04-02] MEDS: FINASTERIDE 5 MG TABLET PO (20:17)
[2025-04-02] MEDS: METOPROLOL ER 25 MG TABLET PO (20:18)
[2025-04-03] VITALS (18 sets, daily range): BP systolic 83–107; BP diastolic 49–60; PULSE 66–96; RESP 17–20; TEMP 36.3–37.1; O2SAT 82–95
[2025-04-03] MEDS: FUROSEMIDE 20 MG TABLET PO ×3 (08:07→21:09)
[2025-04-03] MEDS: TAMSULOSIN 0.4 MG CAPSULE 0.8 MG PO (08:07)
[2025-04-03] MEDS: LIDOCAINE 2% (GLYDO) 6 ML GEL TOP (08:07)
[2025-04-03] MEDS: SODIUM CHLORIDE 0.9% FLUSH 10 ML IV (08:21)
--- NOTE | 2025-04-03 13:24 | CM.DPC ---
DCP Cont: Per MD, pt remains stable and ready for discharge once safe d/c plan in place, remains confused. secure emailed updated clinicals to Faisal Nicholson, and Ruby at [facility] towards their bedside assessment tomorrow Mon 04/04 and will need to call and confirm what time for bedside assessment to confirm they can accept for Respite stay while pt has outpt f/u on his Neurological needs and family working on LTC plan pending progress. Pt resides at [facility]. SHENG Baker
--- NOTE | 2025-04-03 13:34 | PT.IPTN ---
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) Unspecified atrial fibrillation (03/24/25) Acute systolic (congestive) heart failure (03/24/25) Benign prostatic hyperplasia with lower urinary tract symptoms (03/24/25) Gross hematuria (03/24/25) Hematuria, unspecified (03/24/25) Physical Therapy Treatment Note M2 PT-IP Current Condition Start: 04/01/25 14:55 Freq: NEEDED Status: Active Protocol: Document 04/01/25 13:10 [facility] (Rec: 04/01/25 15:11 AB [id number]) Physical Therapy Current Condition Current Condition Evaluation Date 04/01/25 Treatment Diagnosis CHF; hematuria; difficulty in walking Onset Date 03/24/25 M3 PT-IP Subjective Start: 04/01/25 14:55 Freq: NEEDED Status: Active Protocol: Document 04/03/25 13:04 [facility] (Rec: 04/03/25 13:34 [facility] [id number]) Subjective Physical Therapy Visit Type Type Treatment Note Visit Start Time 13:04 Visit Stop Time 13:27 Number of LAB NURSE Visits 0 Physical Therapy Visit Comments Patient Comments Patient reports fatigued after poor sleep x 2 nights. Therapy Pain Assessment Pain When Pain Assessed At Rest Pain Present Pain Present Denied Pain M4 PT-IP Mobility and Gait Start: 04/01/25 14:55 Freq: NEEDED Status: Active Protocol: Document 04/03/25 13:04 [facility] (Rec: 04/03/25 13:34 [facility] [id number]) PT-Transfer Assessment Sit to and From Stand Sit to and from Contact Guard Assistance,1 Person Assistance,Use of Stand Upper Extremities Equipment Transfer Assistive Front Wheeled Walker Device Orthotic/Prosthetic No Devices or Brace: Transfers Transfer Destination Bed,Chair Transfer Technique ambulated Transfer Ability Level of Assist Contact Guard Assistance,1 Person Assistance,Use of Upper Extremities Comments Mobility Comments Pt. sitting up in chair. Requests chair be available in hallway in case he needs a rest. Sit to stand with CG-min A. Ambulated 15' into hallway with FWW and CGA. Requested sit due to mild SOB. Transferred stand to sit with CGA into w/c. Rested x 2 min. Ambulated back to chair 15' with FWW with CGA. Fatigued after ambulation. Patient reclined in chair due to michael swollen legs, encouraged ankle pumps. Gait Assessment Gait Gait Assistance Contact Guard Assist Required: Distance (Feet) 15 Able to Maintain Yes Weight Bearing Status During Gait Comments Gait Comments 15 ft x 2 M5 PT-IP Objective Assessments Start: 04/01/25 14:55 Freq: NEEDED Status: Active Protocol: Document 04/01/25 13:10 [facility] (Rec: 04/01/25 15:11 AB [id number]) Orientation Orientation/Cognition Level of Alertness Alert Orientation Name,Place,Situation Language Function No Deficits Noted Ability Safety Awareness Decreased Safety Awareness Memory Description No Deficits Noted Muscle Tone Muscle Tone WNL Yes M6 PT-IP Treatment Start: 04/01/25 14:55 Freq: NEEDED Status: Active Protocol: Document 04/03/25 13:04 [facility] (Rec: 04/03/25 13:34 [facility] [id number]) Physical Therapy Treatment Education Education Provided Safety M7 PT-IP Assessment and Plan Start: 04/01/25 14:55 Freq: NEEDED Status: Active Protocol: Document 04/03/25 13:04 [facility] (Rec: 04/03/25 13:34 [facility] [id number]) PT Summary Assessment and Plan Potential Rehabilitation Fair Potential Status of Condition Unstable at Evaluation Summary Impairments Pain,ROM,Strength,Balance,Coordination,Sensation,Tone, Cognition,Bed Mobility,Transfers,Gait,Activity Tolerance Assessment Summary Patient was able to ambulate 15 ft x 2 with FWW and CGA . Sit to stand with CG-min A. Fatigues quickly. Patient left reclined in chair with call light in reach , TEST TUBE MAKER with patient. Progress limited by low activity tolerance and generalized weakness. Goals Bed Mobility Goal Independent Transfer Goal Independent,Front Wheeled Walker Gait Goal Independent,Front Wheel Walker Gait Distance 100 Other Goals improve transfers, ambulation using LRAD/without AD 150 ft mod I Days to Meet Goals 10 Frequency of Treatment Frequency Of Once a Day Treatment Treatment Plan Physical Therapy Bed Mobility Training,Transfer Training,Gait Training, Treatment Plan Therapeutic Exercise,Balance Retraining,Discharge Planning,Hot or Cold Pack,Neuromuscular Re-ed, Coordination Retraining Recommendations To Nursing Amount of Assist 1 Person Assist Needed Discharge Recommendations PT Discharge SNF Rehab Recommendations Transportation Needs Private Vehicle,Wheelchair/Cabulance at Discharge - PT assist 1
--- NOTE | 2025-04-03 17:24 | P.PN_ITS ---
Subjective Subjective Date Patient Seen: 04/03/25 Interval history: Chief complaint: Acute systolic congestive heart failure with critical aortic stenosis with shortness for breath and edema History of present illness: 03/25: 89-year-old male with a history of BPH, hypertension, hyperlipidemia and cognitive dysfunction who presents with new CHF and Afib RVR. On initial presentation he describes 1 week of shortness of breath and leg edema. He denied chest pain and palpitations. He was in sinus rhythm. He was sent for a CT of his chest and while in CT went into atrial fibrillation with a response rate in the 140s. This was treated with IV metoprolol bringing his heart rate down below 110. He appears to have significant vascular insufficiency redness versus bilateral cellulitis of his lower legs. He has significant cognitive dysfunction and seems to confabulate or have misunderstanding of questions quite easily. He does not think that he has ever had any heart condition before. He has been started on diltiazem and apixaban. The EKG shows:Atrial fibrillation with rapid ventricular response with premature ventricular or aberrantly conducted complexes Nonspecific ST and T wave abnormality Old anteroseptal [place]. [place] 0[place]014 [place] [address]. 03/24: He continues with bilateral lower extremity pink discoloration of the skin consistent with venous insufficiency versus bilateral cellulitis. The TSH is 3.68. The blood pressure is 96/61 with a heart rate of 98 and a sat of 90%. Cardiology will be consulted today. His echocardiogram is significantly abnormal with: Left ventricular ejection fraction is estimated to be 25 +/- 5%. The right ventricle is normal in size and function. The left atrium is severely dilated. The right atrium is moderately dilated. There is moderate mitral regurgitation. There is severe aortic stenosis. Hospital course: 03/26: Patient sleepy today after Seroquel 25 mg then uncooperative with treatment and care. Had long discussion with 3 children who are all marion of patent attorney with a summary of the acute management. Patient has episodes of hypotension after diuresis so we will have to diurese very gently and monitor fluid status vital signs carefully. With regard to his critical aortic stenosis patient may or may not be a candidate for the TAVR either by the the fact of his dementia or frailty or the patient himself may decide that he does not want to undergo the procedure at his age. 03/27: Patient alert cogent and very sophisticated in his questions about his condition that he has not significant understanding 03/28: Patient has started developing gross hematuria last night with bladder outlet obstruction initially a coude catheter was passed and then three-way bladder irrigation for obstruction with coude catheter and gross hematuria. Dr. Bhat urology consulted in his agreed to see this patient this evening also seen by Dr. William cardiology difficult to measure urine output due to catheter placement 03/29: Patient understanding his situation although continues to manipulate his catheter has to be redirected no episodes of shortness a breath or chest pain the 3 way irrigation is demonstrating less blood 03/30: improved hematuria with CBI. No dyspnea. 03/31: CBI off, improved hematuria. SLUMS . Diuresis. DC planning. 04/01: He was doing well, has respond to diuresis. He denies any dyspnea. It was a cramp critical . He had bladder irrigation through yesterday. He does have good range of urine today, it was brown and has a fair amount of sediment. He was currently off from anticoagulation. Dr. William reviewed his recommendations with me and the patient as well as a son marked by phone. These are as follows, discharge from the hospital, likely to [facility] on Friday. Outpatient follow up with Urology for cystoscopy within the next couple of weeks. This would then be followed by a progressive workup including right and left heart catheterization to move towards a TAVR. The TAVR would involve dual antiplatelet therapy for several months per Dr. William's report. 04/02: No new complaints at this time very slowly diuresing very old blood appearing catheter no red blood off of anticoagulation 04/03: Comfortable occasionally irritation from catheter otherwise doing well no new blood and catheter tubing Review of systems: No chest pain no palpitation No fever or chills No nausea vomiting Physical exam: Alert conversant HEENT unremarkable Irregularly irregular rhythm 2/6 systolic murmur loudest left sternal border Abdomen benign Extremity 3+ edema from above knee to foot mycotic appearing skin Assessment and plan: Acute on chronic systolic congestive heart failure with reduced ejection fraction 25% and complicated by severe critical aortic stenosis * Has hypotension with brisk diuresis so a more gentle diuresis approach * Long discussion with family 03/26 regarding TAVR replacement * Still very fluid overloaded Severe critical aortic stenosis: * 50% 1 year survival without TAVR * We will need cardiac catheterization for coronary anatomy * We will need to be screened for dementia and frailty prior to approval * Patient also to decide himself if he wants to this understanding risks and benefits and life choices Chronic atrial fibrillation * Rate control and diltiazem * Eliquis on hold due to gross hematuria for CVA prophylaxis Lower extremity cellulitis (possibly dermatitis) * Suspicious for staph * Vancomycin started 03/27 with improvement and complete * Topical antifungal t.i.d. Gross hematuria favor spontaneous * Leave in catheter in at discharge * Follow up outpatient with possible cystoscopy DVT prophylaxis: * Contraindicated due to bleeding Code status: * Full code blue Disposition: * plan discharge from the hospital, likely to [facility] on Wednesday 04/04 * Outpatient follow up with Urology for cystoscopy within the next couple of weeks. * This would then be followed by a progressive workup including right and left heart catheterization to move towards a TAVR. * The TAVR would involve dual antiplatelet therapy for several months per Dr. William's report. Time based billing: * 35 minutes were spent in evaluation of this patient including [id number] evaluation with the patient examination of the patient prolonged discussion with family and consultants case management review of objective laboratory and imaging data telemetry and EKG data and evidence based medicine database for patient's clinical situation Exam Vital Signs (past 8 hours): - 04/03/25 11:00 04/03/25 15:00 Temperature 97.6 F 97.6 F Pulse Rate 66 66 Respiratory Rate 19 19 Blood Pressure 91/54 L 91/54 L Pulse Oximetry 91 92 Oxygen Delivery Method Room Air Oxygen Flow Rate 0 Objective Labs 03/28/25 11:20 03/28/25 11:20 PFSH Medical History Acute systolic heart failure due to valvular disease Aortic stenosis with mitral and aortic insufficiency Cognitive dysfunction HLD (hyperlipidemia) HTN (hypertension) BPH (benign prostatic hyperplasia) Social History number of children: 3 household members: none other: Lives in a intermediate manager care facility. Smoking Status: Never smoker alcohol intake: current Type(s) of exercise: none Assessment & Plan Time-Based Coding :: [TOTAL MINUTES] spent with patient and on the chart (including review of chart, obtaining history, exam, reviewing outside data, placing orders, documenting exam and treatment plan, and counseling patient) on [DATE]. Quality VTE Deep Vein Thrombosis/Pulmonary Embolism Present on Admission: No
[2025-04-03] MEDS: METOPROLOL ER 25 MG TABLET PO (21:07)
[2025-04-03] MEDS: FINASTERIDE 5 MG TABLET PO (21:09)
[2025-04-03] MEDS: ATORVASTATIN 20 MG TABLET 10 MG PO (21:09)
[2025-04-04] VITALS (12 sets, daily range): BP systolic 68–106; BP diastolic 48–72; PULSE 53–103; RESP 17–20; TEMP 36.2–36.8; O2SAT 91–94
--- NOTE | 2025-04-04 04:10 | PC.NURSE ---
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 Brown urine noted in bag with small blood clots, nothing in tubing. Bladder scan showed 550cc. Attempted to release clot by ambulating and coughing. Manually irrigated bladder w/ sterile water, large blood clots released. Patient reported that he is feeling much better. Dark orange urine draining currently. Notified MD Willoughby, order to manually irrigate only tonight and consult with daytime hospitalist regarding restarting CBI, CBI remains clamped. Call-light in reach, plan of care ongoing.
[2025-04-04] MEDS: TAMSULOSIN 0.4 MG CAPSULE 0.8 MG PO (08:33)
[2025-04-04] MEDS: FUROSEMIDE 20 MG TABLET PO (08:34)
[2025-04-04] MEDS: SODIUM CHLORIDE 0.9% FLUSH 10 ML IV (08:34)
--- NOTE | 2025-04-04 13:38 | CM.DPNOTE ---
DCP Note According to Ruby at [facility]; after assessment this morning, she feels patient's care needs align with skilled level of care at this time. Sent an email to Guillermina Guzmán <[email or web address]> and Markel Carlisle <[email or web address]> who are covering in admissions at [facility]. Requested they look at this referral again. Initially, Neva at declined this referral saying there were no skilled needs- it's possible this could have changed. Awaiting feedback from . Additional contact with patient and family is needed to discuss next steps, depending on response from admissions team. MAXWELL
[2025-04-04] MEDS: FINASTERIDE 5 MG TABLET PO (20:13)
[2025-04-04] MEDS: ATORVASTATIN 20 MG TABLET 10 MG PO (20:13)
[2025-04-05 06:05] VITALS: BP 100/65; PULSE 68; RESP 17; TEMP 36.3; O2SAT 94
--- NOTE | 2025-04-05 09:12 | P.PN_ITS ---
Subjective Subjective Date Patient Seen: 04/04/25 Interval history: Chief complaint: Acute systolic congestive heart failure with critical aortic stenosis with shortness for breath and edema History of present illness: 03/25: 89-year-old male with a history of BPH, hypertension, hyperlipidemia and cognitive dysfunction who presents with new CHF and Afib RVR. On initial presentation he describes 1 week of shortness of breath and leg edema. He denied chest pain and palpitations. He was in sinus rhythm. He was sent for a CT of his chest and while in CT went into atrial fibrillation with a response rate in the 140s. This was treated with IV metoprolol bringing his heart rate down below 110. He appears to have significant vascular insufficiency redness versus bilateral cellulitis of his lower legs. He has significant cognitive dysfunction and seems to confabulate or have misunderstanding of questions quite easily. He does not think that he has ever had any heart condition before. He has been started on diltiazem and apixaban. The EKG shows:Atrial fibrillation with rapid ventricular response with premature ventricular or aberrantly conducted complexes Nonspecific ST and T wave abnormality Old anteroseptal [place]. [place] troponin [place] 0.014 [place] [address]. 03/24: He continues with bilateral lower extremity pink discoloration of the skin consistent with venous insufficiency versus bilateral cellulitis. The TSH is 3.68. The blood pressure is 96/61 with a heart rate of 98 and a sat of 90%. Cardiology will be consulted today. His echocardiogram is significantly abnormal with: Left ventricular ejection fraction is estimated to be 25 +/- 5%. The right ventricle is normal in size and function. The left atrium is severely dilated. The right atrium is moderately dilated. There is moderate mitral regurgitation. There is severe aortic stenosis. Hospital course: 03/26: Patient sleepy today after Seroquel 25 mg then uncooperative with treatment and care. Had long discussion with 3 children who are all marion of commonwealth attorney with a summary of the acute management. Patient has episodes of hypotension after diuresis so we will have to diurese very gently and monitor fluid status vital signs carefully. With regard to his critical aortic stenosis patient may or may not be a candidate for the TAVR either by the the fact of his dementia or frailty or the patient himself may decide that he does not want to undergo the procedure at his age. 03/27: Patient alert cogent and very sophisticated in his questions about his condition that he has not significant understanding 03/28: Patient has started developing gross hematuria last night with bladder outlet obstruction initially a coude catheter was passed and then three-way bladder irrigation for obstruction with coude catheter and gross hematuria. Dr. Bhat urology consulted in his agreed to see this patient this evening also seen by Dr. William cardiology difficult to measure urine output due to catheter placement 03/29: Patient understanding his situation although continues to manipulate his catheter has to be redirected no episodes of shortness a breath or chest pain the 3 way irrigation is demonstrating less blood 03/30: improved hematuria with CBI. No dyspnea. 03/31: CBI off, improved hematuria. SLUMS . Diuresis. DC planning. 04/01: He was doing well, has respond to diuresis. He denies any dyspnea. It was a cramp critical . He had bladder irrigation through yesterday. He does have good range of urine today, it was brown and has a fair amount of sediment. He was currently off from anticoagulation. Dr. William reviewed his recommendations with me and the patient as well as a son marked by phone. These are as follows, discharge from the hospital, likely to [facility] on Friday. Outpatient follow up with Urology for cystoscopy within the next couple of weeks. This would then be followed by a progressive workup including right and left heart catheterization to move towards a TAVR. The TAVR would involve dual antiplatelet therapy for several months per Dr. William's report. 04/02: No new complaints at this time very slowly diuresing very old blood appearing catheter no red blood off of anticoagulation 04/03: Comfortable occasionally irritation from catheter otherwise doing well no new blood and catheter tubing 04/04: Patient was all prepared for discharge to [facility], however interstitial never sent transport and then reported that they reversed their acceptance of the patient and declined Review of systems: No chest pain no palpitation No fever or chills No nausea vomiting Physical exam: Alert conversant HEENT unremarkable Irregularly irregular rhythm 2/6 systolic murmur loudest left sternal border Abdomen benign Extremity 3+ edema from above knee to foot mycotic appearing skin Assessment and plan: Acute on chronic systolic congestive heart failure with reduced ejection fraction 25% and complicated by severe critical aortic stenosis * Has hypotension with brisk diuresis so a more gentle diuresis approach * Long discussion with family 03/26 regarding TAVR replacement * Still very fluid overloaded Severe critical aortic stenosis: * 50% 1 year survival without TAVR * We will need cardiac catheterization for coronary anatomy * We will need to be screened for dementia and frailty prior to approval * Patient also to decide himself if he wants to this understanding risks and benefits and life choices Chronic atrial fibrillation * Rate control and diltiazem * Eliquis on hold due to gross hematuria for CVA prophylaxis Lower extremity cellulitis (possibly dermatitis) * Suspicious for staph * Vancomycin started 03/27 with improvement and complete * Topical antifungal t.i.d. Gross hematuria favor spontaneous * Leave in catheter in at discharge * Follow up outpatient with possible cystoscopy DVT prophylaxis: * Contraindicated due to bleeding Code status: * Full code blue Disposition: * plan discharge from the hospital, likely to [facility] on Wednesday 04/04 * Outpatient follow up with Urology for cystoscopy within the next couple of weeks. * This would then be followed by a progressive workup including right and left heart catheterization to move towards a TAVR. * The TAVR would involve dual antiplatelet therapy for several months per Dr. William's report. Time based billing: * 35 minutes were spent in evaluation of this patient including [id number] evaluation with the patient examination of the patient prolonged discussion with family and consultants case management review of objective laboratory and imaging data telemetry and EKG data and evidence based medicine database for patient's clinical situation Exam Vital Signs (past 8 hours): - 04/05/25 06:05 Temperature 97.4 F L Pulse Rate 68 Respiratory Rate 17 Blood Pressure 100/65 Pulse Oximetry 94 Oxygen Flow Rate 0 Oxygen Delivery Method Room Air Oxygen Flow Rate 0 Objective Labs 03/28/25 11:20 03/28/25 11:20 PFSH Medical History Acute systolic heart failure due to valvular disease Aortic stenosis with mitral and aortic insufficiency Cognitive dysfunction HLD (hyperlipidemia) HTN (hypertension) BPH (benign prostatic hyperplasia) Social History number of children: 3 household members: none other: Lives in a [facility]. Smoking Status: Never smoker alcohol intake: current Type(s) of exercise: none Assessment & Plan Time-Based Coding :: [TOTAL MINUTES] spent with patient and on the chart (including review of chart, obtaining history, exam, reviewing outside data, placing orders, documenting exam and treatment plan, and counseling patient) on [DATE]. Quality VTE Deep Vein Thrombosis/Pulmonary Embolism Present on Admission: No
[2025-04-05] MEDS: TAMSULOSIN 0.4 MG CAPSULE 0.8 MG PO (09:27)
[2025-04-05] MEDS: FUROSEMIDE 20 MG TABLET PO (09:27)
--- NOTE | 2025-04-05 09:52 | EKG_ITS ---
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
[2025-04-05 10:13] VITALS: BP 99/51; PULSE 94; RESP 16; TEMP 36.6; O2SAT 91
[2025-04-05] MEDS: KETOCONAZOLE 2% CREAM 15 GM 1 APPLIC TOP (11:08)
--- NOTE | 2025-04-05 11:15 | OT.IP.TRT ---
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) Unspecified atrial fibrillation (03/24/25) Acute systolic (congestive) heart failure (03/24/25) Benign prostatic hyperplasia with lower urinary tract symptoms (03/24/25) Gross hematuria (03/24/25) Hematuria, unspecified (03/24/25) Occupational Therapy Treatment Note M2 OT-IP Current Condition Start: 03/25/25 10:11 Freq: Status: Active Protocol: Document 03/25/25 10:11 [facility] (Rec: 03/25/25 10:35 [facility] Desktop) Occupational Therapy Current Condition Current Condition Evaluation Date 03/25/25 Treatment Diagnosis CHF, A-fib RVR, PNA Diagnosis Onset Date 03/24/25 M3 OT- IP Subjective and Pain Start: 03/25/25 10:11 Freq: Status: Active Protocol: Document 04/05/25 11:09 [facility] (Rec: 04/05/25 11:20 [facility] Desktop) OT- Subjective Occupational Therapy Visit Type Visit Start Time 11:00 Visit Stop Time 11:08 Occupational Therapy Visit Comments Patient Comments Pt agreed to do grooming at the sink. Patient/Caregiver TO go home. Goals OT Pain Assessment Pain When Pain Assessed At Rest Pain Present Pain Present Denied Pain M4 OT- IP ADL's Start: 03/25/25 10:11 Freq: Status: Active Protocol: Document 04/05/25 11:09 [facility] (Rec: 04/05/25 11:20 [facility] Desktop) OT ADL-Grooming General Evaluation Grooming Ability Independent Comments OT Grooming Comments Pt able to do while standing at the sink with FWW. M5 OT- IP IADL's Start: 03/25/25 10:11 Freq: Status: Active Protocol: Document 03/25/25 10:11 [facility] (Rec: 03/25/25 10:35 [facility] Desktop) OT-Instrumental Activities of Daily Living Medication Management Medication Pt states uses pill organizer. Pt would benefit from Management Comments supervision. Suggested pt to set an alarm to recall taking his meds if needed. Money Management Money Management TO continue to assess, as pt refusing to do any Comments cognitive assessments at this time. Meal Preparation Meal Preparation Pt gets meals at his facility. Comments Driving Driving Concerns Identified Regarding Safety M6 OT- IP Functional Cognition Start: 03/25/25 10:11 Freq: Status: Active Protocol: Document 04/05/25 11:09 [facility] (Rec: 04/05/25 11:20 [facility] Desktop) Cognitive Factors Limiting Selfcare Function Cognitive Comments Cognitive Assessment Pt needing safety cues to be sure to have FWW in front Comments of him at all times. Pt can be impulsive at time and vc for safety. M7 OT- IP Mobility and Balance Start: 03/25/25 10:11 Freq: Status: Active Protocol: Document 04/05/25 11:09 [facility] (Rec: 04/05/25 11:20 [facility] Desktop) OT-Transfer Assessment Sit to and From Stand Sit to and from Standby Assistance Stand Transfers Transfer Ability Standby Assistance Technique Transfer Destination Chair Transfer Technique Stand Step Pivot Devices Transfer Assistive Front Wheeled Walker Devices Comments Mobility Comments SBA with FWW tends to hurry when fatigued and hence decreased safety awareness. Pt got tired from just walking to the sink and back from the recliner. Pt may benefit from 4ww, however depends on whether pt is able to remember to lock and unlock the brakes for his safety. M8 OT- IP Objective Assessments Start: 03/25/25 10:11 Freq: Status: Active Protocol: Document 03/25/25 10:11 [facility] (Rec: 03/25/25 10:35 [facility] Desktop) OT Gross Range of Motion Upper Extremity Range of Motion Assessment Left Impaired OT Strength Upper Extremity Strength Assessment Left Impaired Shoulder 3- Elbow 4 Forearm 4 Wrist 4+ Hand 4+ Comments Strength Comments RUE 3+/5 to 4/5 M9 OT- IP Assessment and Plan Start: 03/25/25 10:11 Freq: Status: Active Protocol: Document 04/05/25 11:09 [facility] (Rec: 04/05/25 11:20 [facility] Desktop) OT Summary Assessment and Plan Potential Rehabilitation Fair Potential Analytic Complexity Moderate at Evaluation Summary Progress Towards Slow Progress due to Medical Issues,Slow Progress due Goals to Cognition Assessment Summary Pt will continue to benefit from assist especially for IADL needs, catheter needs, bathing and safety awareness especially when pt tires. Pt will benefit from 24/7 available assist at home and home health at this time. Pt is a little unsteady on his feet and now needing use of fww. Pt may benefit from skilled rehab to help maximize overall activity tolerance and balance needs. Goals Grooming Goal Independent Dressing Goal Independent Toileting Goal Independent Bathing Goal Independent Toilet Transfer Goal Independent Shower Transfer Goal Independent Days to Meet Goals 10 Frequency of Treatment Other frequency 5x/week Treatment Plan OT Treatment Plan ADL Training,Functional Mobility,Patient/Family Education,Discharge Planning Discharge Recommendations OT Discharge Home with 20/01 Assist Available,Home Health,SNF Rehab, Recommendations Home vs SNF Transportation Needs Private Vehicle,Wheelchair/Cabulance at Discharge
--- NOTE | 2025-04-05 11:29 | CM.DPC ---
[facility] can accept patietn today. 1 pm miner pick. Patient and patient's son, Jhony, are aware.
--- NOTE | 2025-04-05 13:14 | P.DS_ITS ---
History of Present Illness History of Present Illness Date Patient Seen: 04/05/25 Chief complaint: Gross hematuria, urinary retention Narrative: Chief complaint: Acute systolic congestive heart failure with critical aortic stenosis with shortness for breath and edema History of present illness: 03/25: 89-year-old male with a history of BPH, hypertension, hyperlipidemia and cognitive dysfunction who presents with new CHF and Afib RVR. On initial presentation he describes 1 week of shortness of breath and leg edema. He denied chest pain and palpitations. He was in sinus rhythm. He was sent for a CT of his chest and while in CT went into atrial fibrillation with a response rate in the 140s. This was treated with IV metoprolol bringing his heart rate down below 110. He appears to have significant vascular insufficiency redness versus bilateral cellulitis of his lower legs. He has significant cognitive dysfunction and seems to confabulate or have misunderstanding of questions quite easily. He does not think that he has ever had any heart condition before. He has been started on diltiazem and apixaban. The EKG shows:Atrial fibrillation with rapid ventricular response with premature ventricular or aberrantly conducted complexes Nonspecific ST and T wave abnormality Old anteroseptal [place]. [place] 0.014 [place] [id number]. 03/24: He continues with bilateral lower extremity pink discoloration of the skin consistent with venous insufficiency versus bilateral cellulitis. The TSH is 3.68. The blood pressure is 96/61 with a heart rate of 98 and a sat of 90%. Cardiology will be consulted today. His echocardiogram is significantly abnormal with: Left ventricular ejection fraction is estimated to be 25 +/- 5%. The right ventricle is normal in size and function. The left atrium is severely dilated. The right atrium is moderately dilated. There is moderate mitral regurgitation. There is severe aortic stenosis. Hospital course: 03/26: Patient sleepy today after Seroquel 25 mg then uncooperative with treatment and care. Had long discussion with 3 children who are all [employer] attorney with a summary of the acute management. Patient has episodes of hypotension after diuresis so we will have to diurese very gently and monitor fluid status vital signs carefully. With regard to his critical aortic stenosis patient may or may not be a candidate for the TAVR either by the the fact of his dementia or frailty or the patient himself may decide that he does not want to undergo the procedure at his age. 9/28: Patient alert cogent and very sophisticated in his questions about his condition that he has not significant understanding 03/28: Patient has started developing gross hematuria last night with bladder outlet obstruction initially a coude catheter was passed and then three-way bladder irrigation for obstruction with coude catheter and gross hematuria. Dr. Bhat urology consulted in his agreed to see this patient this evening also seen by Dr. William cardiology difficult to measure urine output due to catheter placement 03/29: Patient understanding his situation although continues to manipulate his catheter has to be redirected no episodes of shortness a breath or chest pain the 3 way irrigation is demonstrating less blood 03/30: improved hematuria with CBI. No dyspnea. 03/31: CBI off, improved hematuria. SLUMS . Diuresis. DC planning. 04/01: He was doing well, has respond to diuresis. He denies any dyspnea. It was a cramp critical . He had bladder irrigation through yesterday. He does have good range of urine today, it was brown and has a fair amount of sediment. He was currently off from anticoagulation. Dr. William reviewed his recommendations with me and the patient as well as a son marked by phone. These are as follows, discharge from the hospital, likely to [facility] on Friday. Outpatient follow up with Urology for cystoscopy within the next couple of weeks. This would then be followed by a progressive workup including right and left heart catheterization to move towards a TAVR. The TAVR would involve dual antiplatelet therapy for several months per Dr. William's report. 04/02: No new complaints at this time very slowly diuresing very old blood appearing catheter no red blood off of anticoagulation 04/03: Comfortable occasionally irritation from catheter otherwise doing well no new blood and catheter tubing 04/04: Patient was all prepared for discharge to [facility], however interstitial never sent transport and then reported that they reversed their acceptance of the patient and declined Review of systems: No chest pain no palpitation No fever or chills No nausea vomiting Physical exam: Alert conversant HEENT unremarkable Irregularly irregular rhythm 2/6 systolic murmur loudest left sternal border Abdomen benign Extremity 3+ edema from above knee to foot mycotic appearing skin Assessment and plan: Acute on chronic systolic congestive heart failure with reduced ejection fraction 25% and complicated by severe critical aortic stenosis * Has hypotension with brisk diuresis so a more gentle diuresis approach * Long discussion with family 03/26 regarding TAVR replacement * Still very fluid overloaded Severe critical aortic stenosis: * 50% 1 year survival without TAVR * We will need cardiac catheterization for coronary anatomy * We will need to be screened for dementia and frailty prior to approval * Patient also to decide himself if he wants to this understanding risks and benefits and life choices Chronic atrial fibrillation * Rate control and diltiazem * Eliquis on hold due to gross hematuria for CVA prophylaxis Lower extremity cellulitis (possibly dermatitis) * Suspicious for staph * Vancomycin started 03/27 with improvement and complete * Topical antifungal t.i.d. Gross hematuria favor spontaneous * Leave in catheter in at discharge * Follow up outpatient with possible cystoscopy DVT prophylaxis: * Contraindicated due to bleeding Code status: * Full code blue Disposition: * plan discharge from the hospital, likely to [facility] on Wednesday 04/04 * Outpatient follow up with Urology for cystoscopy within the next couple of weeks. * This would then be followed by a progressive workup including right and left heart catheterization to move towards a TAVR. * The TAVR would involve dual antiplatelet therapy for several months per Dr. William's report. Time based billing: * 35 minutes were spent in evaluation of this patient including [id number] evaluation with the patient examination of the patient prolonged discussion with family and consultants case management review of objective laboratory and imaging data telemetry and EKG data and evidence based medicine database for patient's clinical situation Discharge Providers Provider Date of admission: 03/24/25 14:23 Discharge Date: 04/05/25 Consults: 03/24/25 18:35 Consult to Occupational Therapy Evaluate & Treat Comment: Physician Instructions: Evaluate and treat 03/24/25 22:47 Consult to Pharmacy Routine Comment: protocol 03/25/25 08:15 Consult to Pharmacy Routine Comment: high fall risk 03/25/25 09:14 Consult to Cardiology Routine Comment: Consulting Provider: Michel William Reason for consultation: CHF Has provider been notified: Yes 04/01/25 09:02 Consult to Physical Therapy Evaluate & Treat Comment: Physician Instructions: Evaluate and Treat Discharge provider: Dominic Katz MD Exam Vital Signs (past 8 hours): - 04/05/25 06:05 04/05/25 10:13 Temperature 97.4 F L 98 F Pulse Rate 68 94 H Respiratory Rate 17 16 Blood Pressure 100/65 99/51 L Pulse Oximetry 94 91 Oxygen Flow Rate 0 Oxygen Delivery Method Room Air Oxygen Flow Rate 0 Objective Labs 03/28/25 11:20 03/28/25 11:20 [facility] Medical History Acute systolic heart failure due to valvular disease Aortic stenosis with mitral and aortic insufficiency Cognitive dysfunction HLD (hyperlipidemia) HTN (hypertension) BPH (benign prostatic hyperplasia) Social History number of children: 3 household members: none other: Lives in a [facility] facility. alcohol intake: current Type(s) of exercise: none Discharge Plan Discharge Plan Patient Disposition: SNF Transfer to: [facility] Provider Discharge Comment: Follow up with Dr. William next week. Discharge orders & Medications Prescriptions: New quetiapine 25 mg Tablet 25 mg PO BID Qty: 180 0RF tamsulosin 0.4 mg Capsule 0.8 mg PO DAILY Qty: 90 0RF diltiazem HCl 120 mg Capsule,Extended Release 24hr 120 mg PO DAILY Qty: 90 0RF furosemide 20 mg Tablet 20 mg PO TID Qty: 270 0RF ketoconazole-hydrocortisone 2-2.5 % cream 60 applic topical BID Qty: 30 0RF Continued metoprolol succinate 25 mg tablet extended release 24 hr 25 mg PO BEDTIME finasteride 5 mg tablet 5 mg PO BEDTIME rosuvastatin 5 mg tablet 5 mg PO BEDTIME Discontinued aspirin 81 mg tablet,delayed release (DR/EC) 81 mg PO DAILY Follow up/Referrals: Marquis Bhat DO [Physician, Urology] - 1 Week Diet/Activity/Treatments Diet: Low-sodium Visit Report/Discharge Packet Stand Alone Forms: Patient Portal/API Quality VTE Deep Vein Thrombosis/Pulmonary Embolism Present on Admission: No
--- NOTE | 2025-04-05 13:25 | PC.NURSE ---
PT transferred to [facility] for rehab. Report given to facility, [place] intact, belongings accounted for and all questions answered.
== END 2025-04-05 13:22 | DRG 291 ==
LOC: ED 14:07 → AC 15:35 → ICU 03-25 13:17
PROVIDERS: Internal Medicine; Admitting Provider Family Medicine; Emergency Provider Emergency Medicine; Referring Provider Emergency Medicine; Visit Provider Family Medicine
DX: I11.0 Hypertensive heart disease with heart failure (principal); I50.23 Acute on chronic systolic (congestive) heart failure; L03.116 Cellulitis of left lower limb; L03.115 Cellulitis of right lower limb; N13.8 Other obstructive and reflux uropathy; D68.32 Hemorrhagic disorder due to extrinsic circulating anticoagulants; I48.20 Chronic atrial fibrillation, unspecified; N40.1 Benign prostatic hyperplasia with lower urinary tract symptoms; R31.0 Gross hematuria; T45.515A Adverse effect of anticoagulants, initial encounter; F09 Unspecified mental disorder due to known physiological condition; I34.0 Nonrheumatic mitral (valve) insufficiency; E78.5 Hyperlipidemia, unspecified; I35.2 Nonrheumatic aortic (valve) stenosis with insufficiency
CPT/HCPCS: 36415; 71045; 71275; 80053; 83605; 83880; 84145; 84443; 84484; 85025; 85610; 87040; 87633; 93005; 93306; 93970; 96374; 97116; 97129; 97163; 97166; 97530; 99284; 99285; J0689; J1938; J3375; Q9967

== ENCOUNTER → 2025-04-25 03:34 | Outpatient (ROUT) | payer MEDICARE, OTHER, SELFPAY ==
[2025-03-24 19:01] VITALS: BMI 33.5
[2025-04-25 03:46] LABS: Appearance Urine UA TURBID; Bilirubin Urine UA NEGATIVE (NEGATIVE); Color Urine UA YELLOW; Glucose Urine UA NEGATIVE (Negative); Ketones Urine UA NEGATIVE (NEGATIVE); Leukocyte Esterase Urine UA 3+ (NEGATIVE); Nitrite Urine UA NEGATIVE (Negative); Occult Blood Urine UA 3+ (Negative); Protein Urine UA 1+ (Negative); Specific Gravity Urine UA 1.015 (1.000-1.035); Urobilinogen Urine UA 2.0 E.U./dL (0.2); pH Urine UA 6.0 (4.5-8.0)
[2025-04-25 03:54] LABS: Culture Indicated Urine Specimen Cultured
== END ==
PROVIDERS: Visit Provider Hospitalist
DX: R31.9 Hematuria, unspecified (principal)
CPT/HCPCS: 81001; 87077; 87086; 87186